=== PATIENT | female | born 1960 | race Caucasian/White ===

== ENCOUNTER → 2017-07-06 15:39 | Outpatient (POV) | payer OTHER, SELFPAY | PROVIDERS: PCP Family Medicine; Visit Provider Nurse Practitioner Acute Care | DX: Z00.00 Encounter for general adult medical examination without abnormal findings (principal) ==

== ENCOUNTER → 2017-07-16 07:02 | Outpatient (CLI) | payer OTHER, SELFPAY ==
--- NOTE | 2017-07-16 07:06 | NM_ITS ---
CARDIOLITE SPECT MYOCARDIAL PERFUSION SCAN, REST AND STRESS: EXERCISE STRESS [facility] REVIEW QGS EF AND WALL MOTION EVALUATION: QPS - PERFUSION EVALUATION HISTORY: Chest pain, Fatigue DOSE: 10.60 mCi technetium 99m mibi intravenously at rest followed by 32.4 mCi technetium 99m mibi following the intravenous ministration of 0.4 mg of Lexiscan. Resting blood pressure is 138/77. Stress blood pressure 128/67. FINDINGS: Ejection fraction is calculated to be 63%. Uniform myocardial activity at both stress and rest gated images calculated ejection fraction of 63% with normal wall motion IMPRESSION: No scintigraphic evidence of Lexiscan-induced myocardial ischemia. Normal ejection fraction normal wall motion
--- NOTE | 2017-07-16 07:48 | CA_ITS ---
PROCEDURE: 2-D M-mode and color Doppler study INDICATIONS FOR THE TEST: Chest pain X COPD Heart Murmur Tobacco Smoking Palpitations Fatigue Syncope Edema Hypertension Diabetes Mellitus Rheumatic Fever SOB HUFFMAN ObesityXHyperlipidemia Family History HD Additional History PATIENT INFORMATION HEIGHT:63 WEIGHT:194 GENDER: Female B/P:138/77 2-D/M-MODE INTERPRETATION: 2-D MEASUREMENTS OBSERVED VALUES IN CMS Right Ventricular Dimension (RVDd) 2.8 Interventricular Septum (Thickness)(IVsd) .9 Left Ventricular Internal Dimensions(LVIDd) 4.1 Left Ventricular Posterior Wall (Thickness)(LVPWd) .9 Aortic Root 2.9 Aortic Cusp Separation 1.6 Left Atrial Dimensions (LAD) 2.9 2D 1. Left atrium is qualitatively mildly enlarged, left ventricle is normal size, there is no concentric left ventricular hypertrophy, visually estimated ejection fraction 55% with no obvious regional wall motion abnormality. 2. The right atrium is normal size, right ventricle is mildly enlarged with normal contractility. 3. The aortic valve is minimally thickened and fibrosed. 4. The mitral and tricuspid valve are structurally normal. 5. The pulmonic valve is poorly visualized 6. No significant pericardial effusion noted. DOPPLER INTERROGATION: Doppler interrogation of the aortic, mitral and tricuspid valvular presence of mild mitral and tricuspid regurgitation, calculated right ventricular systolic pressure is 45 mmHg consistent with moderate pulmonary hypertension, grade 1 diastolic dysfunction seen without tissue Doppler evidence of raised left atrial pressure. CONCLUSION: 1. Mildly enlarged left atrium, normal left ventricular size, visually estimated ejection fraction 55% with no obvious regional wall motion abnormality, grade 1 diastolic dysfunction seen without tissue Doppler evidence of raised left atrial pressure. 2. Mildly enlarged right ventricle with normal contractility. 3. Mild mitral and tricuspid regurgitation 4. No significant pericardial effusion noted.
== END ==
PROVIDERS: PCP Family Medicine; Visit Provider Internal Medicine
DX: R07.89 Other chest pain (principal); Z01.818 Encounter for other preprocedural examination; F17.200 Nicotine dependence, unspecified, uncomplicated; R00.2 Palpitations; K21.9 Gastro-esophageal reflux disease without esophagitis; R07.8 Other chest pain
CPT/HCPCS: 78452; 93017; 93306; A9502; J2785

== ENCOUNTER → 2017-08-04 06:56 | Outpatient (CLI) | payer OTHER, SELFPAY | PROVIDERS: PCP Family Medicine; Visit Provider Physician Assistant | DX: I27.20 Pulmonary hypertension, unspecified (principal); I51.9 Heart disease, unspecified; R60.9 Edema, unspecified ==

== ENCOUNTER → 2017-08-04 07:09 | Outpatient (CLI) | payer OTHER, SELFPAY ==
[2017-08-04 08:29] LABS: Anion Gap 11.1 mEq/L (5-15); Blood Urea Nitrogen 15 mg/dL (7-18); Carbon Dioxide 29 mmol/L (21.0-32.0); Chloride 105 mmol/L (98-107); Creatinine,Serum 0.84 mg/dL (0.55-1.02); Estimated Glomerular Filt Rate 70 ml/min (>60); GFR (African American) 85 ML/MIN (>60); Glucose 104 mg/dL (74-106); Potassium 4.1 mmoL/L (3.5-5.1); Sodium 141 mmol/L (136-145); T4 (Thyroxine) 8.7 ug/dl (4.7-13.3); Thyroid Stimulating Hormone 3.21 uIU/ml (0.358-3.740); Triiodothryronine (T3) Uptake 34 % (31-39)
== END ==
PROVIDERS: PCP Family Medicine; Visit Provider Physician Assistant
DX: I27.20 Pulmonary hypertension, unspecified (principal); I51.9 Heart disease, unspecified; R60.9 Edema, unspecified
CPT/HCPCS: 36415; 80048; 84436; 84443; 84479

== ENCOUNTER → 2017-08-20 15:08 | Outpatient (POV) | payer OTHER, SELFPAY | PROVIDERS: PCP Family Medicine; Visit Provider Dermatology | DX: Z00.00 Encounter for general adult medical examination without abnormal findings (principal) ==

== ENCOUNTER → 2017-09-09 17:12 | Outpatient (CLI) | payer OTHER, SELFPAY ==
--- NOTE | 2017-09-09 17:15 | MM_ITS ---
MM Dig screening mamm BI w/CAD CAD Screening COMPARISON: Digital mammograms 08/07/2016 and 01/23/2016 INDICATION: There is no personal or family history of breast cancer TECHNIQUE: Standard CC and MLO images were obtained. R2 CAD reviewed. FINDINGS: The breasts are closed primarily of fat with minimal scattered fibroglandular densities throughout each breast. There is a benign-appearing calcification in each breast. There is no suspicious lesion and there are no suspicious microcalcifications. IMPRESSION: Fatty type breast parenchyma with no suspicious lesion seen BI-RADS Category: 2 Benign Finding(s) RECOMMENDED FOLLOW-UP: 1YR - 1 YEAR FOLLOW-UP (A letter has been sent to the patient regarding results of the study.)
== END ==
PROVIDERS: PCP Family Medicine; Visit Provider Nurse Practitioner Obstetrics & Gynecology
DX: Z12.31 Encounter for screening mammogram for malignant neoplasm of breast (principal)
CPT/HCPCS: 77067

== ENCOUNTER → 2017-10-26 09:25 | Outpatient (POV) | payer OTHER, SELFPAY | PROVIDERS: Visit Provider Nurse Practitioner Acute Care | DX: Z00.00 Encounter for general adult medical examination without abnormal findings (principal) ==

== ENCOUNTER → 2017-12-25 10:45 | Outpatient (CLI) | payer OTHER, SELFPAY ==
--- NOTE | 2017-12-25 10:56 | XR_ITS ---
XR ankle wt bearing LT min 3V HISTORY: ITS.REASON: pain ORDERING PHYSICIAN: Ursula Cheek DPM PATIENT AGE: 57 years Comparison: 07/26/2015 FINDINGS: Osteoarthritic changes are present at the ankle joint. There is a lucency involving the lateral aspect of the talar dome suspicious for an osteochondral defect measuring approximately 8 mm. Status post prior hindfoot fusion as described in above report. No acute fracture or dislocation. 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
--- NOTE | 2017-12-25 10:56 | XR_ITS ---
XR foot wt bearing LT 3V HISTORY: ITS.REASON: pain ORDERING PHYSICIAN: Ursula Cheek DPM PATIENT AGE: 57 years COMPARISON: 07/26/2015 FINDINGS: There is been prior fusion of the talocalcaneal joint and calcaneocuboid joint as well as the talonavicular joint. Prominent dorsal hypertrophic changes are present at the navicular cuneiform junction. A long screw is present obliquely extending from the posterior calcaneus through the calcaneus into the anterior talus. An oblique screw is also present through the calcaneal cuboid region directed medially. There is moderate to severe pes planus. Osteoarthritic changes are present at the ankle joint. There are osteoarthritic changes at the navicular cuneiforms joint as well. Overall no significant change. IMPRESSION: Overall no change prior hindfoot fusion with osteoarthritic changes and pes planus as described above
--- NOTE | 2017-12-25 10:56 | XR_ITS ---
XR foot wt bearing RT 3V HISTORY: ITS.REASON: pain ORDERING PHYSICIAN: Ursula Cheek DPM PATIENT AGE: 57 years COMPARISON: 09/05/2011 FINDINGS: There is severe pes planus with prior tarsal bone fusion as before with talocalcaneal and talonavicular fusion and calcaneal cuboid fusion. There are mild osteoarthritic changes of the navicular cuneiform and metatarsal tarsal joint. No obvious fracture or dislocation. No significant change from 09/05/2011. IMPRESSION: No change severe pes planus with prior tarsal bone fusion and osteoarthritic change
--- NOTE | 2017-12-25 10:56 | XR_ITS ---
XR ankle wt bearing RT min 3V HISTORY: ITS.REASON: pain ORDERING PHYSICIAN: Ursula Cheek DPM PATIENT AGE: 57 years Comparison: None FINDINGS: There is severe pes planus with osteoarthritic changes at the ankle joint. The talus is tilted being somewhat inverted and there is mild widening of the ankle mortise. No fracture or dislocation. There is mild sclerosis involving the lateral aspect of the talar dome. IMPRESSION: Osteoarthritic change of the talus with talar tilt and mild widening of the ankle mortise
== END ==
PROVIDERS: Visit Provider Podiatrist
DX: M79.671 Pain in right foot (principal); M79.672 Pain in left foot; M25.572 Pain in left ankle and joints of left foot; M25.571 Pain in right ankle and joints of right foot
CPT/HCPCS: 73610; 73630

== ENCOUNTER → 2018-07-29 08:38 | Outpatient (CLI) | payer OTHER, SELFPAY ==
--- NOTE | 2018-07-29 08:48 | XR_ITS ---
XR tibia fibula RT 2V CLINICAL INDICATION: ITS.REASON: follow up right fibula fracture ORDERING PHYSICIAN: Ajit Sewell MD PATIENT AGE: 58 years Comparison: 07/05/2018 FINDINGS: Healing fractures present involving the proximal shaft of the fibula. There is some developing callus formation. There remains good alignment. IMPRESSION: Healing proximal fibular fracture nondisplaced
== END ==
PROVIDERS: PCP Family Medicine; Visit Provider Orthopaedic Surgery
DX: S82.401A Unspecified fracture of shaft of right fibula, initial encounter for closed fracture (principal)
CPT/HCPCS: 73590

== ENCOUNTER → 2018-08-20 09:20 | Outpatient (CLI) | payer OTHER, SELFPAY ==
--- NOTE | 2018-08-20 09:24 | XR_ITS ---
XR tibia fibula RT 2V Ordering Physician: Ajit Sewell MD Patient Age: 58 years: Female HISTORY: ITS.REASON: right fibula fracture Follow-up fracture TECHNIQUE: AP and lateral right leg COMPARISON : 07/29/2018 FINDINGS Healing fracture of the proximal shaft of fibula again evident. Slight progressive healing with additional callus formation about the fracture. Good alignment remains. Stable position overall. Degenerative changes likely developing at the ankle mortise. There is minimal pes planus abnormal foot and ankle been previously imaged. December 2017 IMPRESSION: Healing fracture proximal fibula
== END ==
PROVIDERS: PCP Family Medicine; Visit Provider Orthopaedic Surgery
DX: S82.401A Unspecified fracture of shaft of right fibula, initial encounter for closed fracture (principal)
CPT/HCPCS: 73590

== ENCOUNTER → 2019-03-10 13:17 | Outpatient (CLI) | payer OTHER, SELFPAY ==
--- NOTE | 2019-03-10 13:18 | CA_ITS ---
[facility] RADIOLOGICAL CONSULTATION Patient Name : Rema Valladares X-RAY # : [id number] Physician: LUISA CHAMPION AGE: 58Y : 1960 00:00:00 ( F ) Exam : CA ECHO DOPPLER COMPLETE ACC # : [id number] Study Date : 03/10/2019 13:19:33 Patient Class : O FINAL REPORT CLINICAL DATA: FINDINGS: TRANSCRIBED REPORT EXAM: Comprehensive 2D, Doppler, and color-flow Echocardiogram Network Support Technician: Shagufta Muro RVT Ht: 5 ft 3 in Wt: 193lbs BSA: 1.90 BP: 119/71 mmHg Indications: Shortness of Breath, Palpitations, Hyperlipidemia, Hypertension,Pul. HTN, Edema 2D Dimensions LVOT 1.64 cm (M/F) 1.5-2.5 M-Mode Dimensions RVDd 1.90 cm (0.9-2.6) LVDd 4.27 cm (3.5-5.7) LVDs 2.65 cm (3.5-5.7) IVSd 0.90 cm (0.6-1.1) PWd 1.29 cm (0.6-1.1) EF (Teich) 68.40% FS 37.90% EDV (Teich) 81.70 mL ESV (Teich) 25.80 mL LV Diastology E/A Ratio 1.20 Mitral Valve MV A Velocity 49.00 (40-130 cm/s) Electronically signed by : IMPRESSION: Dictated by at Transcribed by at
== END ==
PROVIDERS: PCP Family Medicine; Visit Provider Nurse Practitioner Family
DX: I27.20 Pulmonary hypertension, unspecified (principal); R60.0 Localized edema; I10 Essential (primary) hypertension
CPT/HCPCS: 93306

== ENCOUNTER → 2020-04-04 16:25 | Outpatient (CLI) | payer OTHER, SELFPAY ==
--- NOTE | 2020-04-04 16:30 | XR_ITS ---
PROCEDURE: XR ANKLE WT BEARING RT MIN 3V CLINICAL INDICATION: pain COMPARISON: CR ANKL3 ANKLE-LT-3 VIEWS from 07/26/2015 CR [id number] XR ankle wt bearing LT min 3V from 12/25/2017 CR [id number] XR ankle wt bearing RT min 3V from 12/25/2017 CR XR FOOT WT BEARING RT 3V from 04/04/2020 FINDINGS: There is severe pes planus. There are osteoarthritic changes of the 1st metatarsal tarsal joint. There has appears to have been fusion the subtalar joint/talocalcaneal joint, talonavicular joint, and calcaneocuboid joint. There are osteoarthritic changes dorsally at the metatarsal tarsal junction. There is mild lateral angulation of the foot On the weight-bearing views there is eversion of the ankle with osteosclerosis of the lateral aspect of the talus and tibial plafond and. The osteosclerosis is somewhat worse than when compared to the previous exam. IMPRESSION: Prior hindfoot and midfoot fusion as described above with osteoarthritis of the ankle and lateral talar tilt. Severe pes planus unchanged. Osteoarthritis of the tarsometatarsal junction with mild lateral angulation of the foot Dictated by: Thai Meléndez MD 04/04/2020 18:54 Thai Meléndez MD in [place] 04/04/2020 18:54
--- NOTE | 2020-04-04 16:30 | XR_ITS ---
PROCEDURE: XR ANKLE WT BEARING LT MIN 3V CLINICAL INDICATION: pain COMPARISON: CR ANKL3 ANKLE-LT-3 VIEWS from 07/26/2015 CR [id number] XR foot wt bearing LT 3V from 12/25/2017 CR ANKWBL3 XR ankle wt bearing LT min 3V from 12/25/2017 CR ANKWBR3 XR ankle wt bearing RT min 3V from 12/25/2017 CR XR FOOT WT BEARING LT 3V from 04/04/2020 FINDINGS: Weightbearing views of the ankle show osteoarthritic changes at the ankle joint with mild eversion of the ankle. Bony hypertrophic changes are present at the tibiofibular syndesmosis. There has been prior hindfoot and midfoot fusion with a screw from the calcaneus to the talus and from the calcaneus into the cuboid. There has been prior talonavicular fusion. Osteoarthritic changes are present with prominent bony hypertrophy at the navicular cuneiform joint. There is moderate pes planus. Osteoarthritic changes are present at the ankle and the metatarsal tarsal joint. Overall no significant change from 12/25/2017 IMPRESSION: Postsurgical changes with hind and midfoot fusion with pes planus and osteoarthritis as described above. Dictated by: Thai Meléndez MD 04/04/2020 18:57 Thai Meléndez MD in [place] 04/04/2020 18:57
== END ==
PROVIDERS: PCP Family Medicine; Visit Provider Podiatrist
DX: M19.90 Unspecified osteoarthritis, unspecified site (principal); M21.40 Flat foot [pes planus] (acquired), unspecified foot; M25.572 Pain in left ankle and joints of left foot; M25.571 Pain in right ankle and joints of right foot
CPT/HCPCS: 73610; 73630

== ENCOUNTER → 2020-04-24 08:24 | Outpatient (CLI) | payer OTHER, SELFPAY ==
--- NOTE | 2020-04-24 08:29 | MM_ITS ---
PROCEDURE: MM DIG SCREENING MAMM BI W/CAD Referring Doctor: Drew Cam Patient Age:59Y CLINICAL INDICATION: screening xmg 59-year-old no hormones no new complaints noncontributory family history COMPARISON: MG DMSB DIG MAMM-SCREEN CATHERINE from 09/28/2013 MG DMSB DIG MAMM-SCREEN CATHERINE from 11/07/2014 MG DMSB DIG MAMM-SCREEN CATHERINE from 01/23/2016 MG DMDBAV DIG MAMM-DX CATHERINE W/AVWS W/CAD from 08/07/2016 MG SCBI MM Dig screening mamm BI w/CAD from 09/09/2017 TECHNIQUE: Standard CC and MLO images were obtained. R2 CAD reviewed. Bilateral digital breast tomosynthesis included. FINDINGS: Low-density breast.. Minimal scattered residual fibroglandular elements with no dominant nor suspicious mass. No suspicious calcifications. No malignancy evident radiographically. CAD computer review highlights no areas of concern Right breast-no significant new areas of concern . Areas of minimal density appear stable for example minimal tiny nodular density inferior breast appear been seen multiple previous MLO studies Left breast no significant new areas of concern... Stable subtle linear area of density on MLO view unchanged since to previous studies. As are other small asymmetric densities IMPRESSION: Stable bilateral mammogram. Bilateral follow-up 1 year recommended BI-RAD Category: 2 Benign Finding(s) FOLLOW-UP: 1YR 1 Year Follow-up (A letter has been sent to the patient regarding results of the study.) Dictated by: Shaun Velásquez MD 04/26/2020 11:52 Shaun Velásquez MD in [place] 04/26/2020 11:52
--- NOTE | 2020-04-24 14:33 | CA_ITS ---
APPROVED REPORT EXAM: Comprehensive 2D, Doppler, and color-flow Echocardiogram Merchandise Manager: Yadi Garcia CRT Ht: 5 ft 3 in Wt: 200lbs BSA: 1.93 BP: 153/71 mmHg Indications: Chest Pain, Pre-Op Clearance, Pulmonary Hypertension, Obesity, Fatigue, Hyperlipidemia, Hypertension/HDD 2D Dimensions LVOT 1.81 cm (M/F) 1.5-2.5 M-Mode Dimensions RVDd 1.83 cm (0.9-2.6) LA Diam 2.82 cm (1.9-4.0) LVDd 4.80 cm (3.5-5.7) Ao Diam 3.48 cm (2.0-3.7) LVDs 2.94 cm (3.5-5.7) IVSd 1.21 cm (0.6-1.1) PWd 0.69 cm (0.6-1.1) EF (Teich) 69.00% FS 38.80% EDV (Teich) 107.50 mL ESV (Teich) 33.30 mL LV Diastology E Decel Time 237.00 (160-240 msec) E/A Ratio 0.86 MED E' 9.20 (< 7 cm/sec) E'/MED E' Ratio 7.39 (>14) LAT E' 11.80 (<10 cm/sec) E/LAT E' Ratio 5.76 (>14) Aortic Valve AO Peak GR. 8.60 mmHg Mitral Valve MV A Velocity 79.00 (40-130 cm/s) E/A Ratio 0.86 MV Decel. Time 237.00 (160-240 ms) Pulmonary Valve PV Peak Velocity 88.00 (50-150 cm/s) Tricuspid Valve TR P. Velocity 260.00 cm/s RAP Estimate 10.00 mmHg RVSP 37.00 mmHg Left Ventricle Left atrium is mildly enlarged, left ventricle is normal size, mild concentric left ventricular hypertrophy, visually estimated ejection fraction 55% with no regional wall motion abnormality, grade 1 diastolic dysfunction seen without tissue Doppler evidence of raise left atrial pressure. Right Ventricle Right atrium and right ventricular normal size and contractility. Aortic Valve Aortic valve is grossly normal, there is no aortic stenosis or aortic insufficiency. Mitral Valve Mitral valve is grossly normal, there is mild mitral regurgitation. Tricuspid Valve Tricuspid valve is grossly normal, there is mild tricuspid regurgitation, calculated right ventricular systolic pressure 33 mmHg. Pulmonic Valve Pulmonic valve is poorly visualized. Great Vessels Aortic root is normal size. Pericardium No significant pericardial effusion noted. Conclusion 1. Mildly enlarged left atrium, normal left ventricular size, mild concentric left ventricular hypertrophy, visually estimated ejection fraction 55% with no regional wall motion abnormality, grade 1 diastolic dysfunction seen without tissue Doppler evidence of raise left atrial pressure. 2. Mild mitral and tricuspid regurgitation, calculated right ventricular systolic pressure 33 mmHg. 3. No significant pericardial effusion noted. Electronically signed by : Davide Ocampo, 04/25/2020 05:46:57
[2020-04-25 10:11] LABS: Microscopic, Urine URINE MICROSCOPIC (MICROSCOPIC)
[2020-04-25 10:53] LABS: Appearance,Urine CLEAR (Clear); Bilirubin,Urine Negative (Negative); Blood, Urine Negative (Negative); Color,Urine YELLOW (Yellow); Glucose,Urine (UA) Negative (Negative); Ketones,Urine Negative (Negative); Leukocyte Esterase,Urine 1+ (Negative); Nitrate,Urine Negative (Negative); Protein,Urine Negative (Negative); Urobilinogen,Urine 0.2 EU/dl (0.2)
[2020-04-25 11:24] LABS: Bacteria,Urine 1+ /lpf
== END ==
PROVIDERS: PCP Family Medicine; Visit Provider Nurse Practitioner Obstetrics & Gynecology
DX: Z12.31 Encounter for screening mammogram for malignant neoplasm of breast (principal); Z01.810 Encounter for preprocedural cardiovascular examination; Z01.419 Encounter for gynecological examination (general) (routine) without abnormal findings; I27.20 Pulmonary hypertension, unspecified; I51.89 Other ill-defined heart diseases; E78.5 Hyperlipidemia, unspecified; I10 Essential (primary) hypertension; R60.0 Localized edema
CPT/HCPCS: 77063; 77067; 81001; 87086; 93306

== ENCOUNTER → 2020-04-30 14:24 | Outpatient (CLI) | payer OTHER, SELFPAY ==
--- NOTE | 2020-04-30 14:27 | CT_ITS ---
PROCEDURE: CT ANKLE RT WO CON CLINICAL HISTORY: ankle pain right foot pain prior surgery 40+ years ago surgical planning, possible TAR COMPARISON: CR XR ANKLE WT BEARING RT MIN 3V from 04/04/2020 CR XR FOOT WT BEARING RT 3V from 04/04/[address] FOOT RT WO CON from 04/30/2020 TECHNIQUE: Axial images obtained with sagittal and coronal reformats. All CT scans at the facility use one or more dose reduction, viz: automated exposure control, ma/kV adjustment per patient size (including targeted exams where dose is matched to indication, i.e. head), or iterative reconstruction technique. FINDINGS: Images are performed from the distal thigh including the knee ankle and foot. These are performed for surgical planning. There are mild osteoarthritic changes of the knee greater at the medial compartment. There is mild patella [place]. There is an old fracture involving the proximal shaft of the fibula. At the ankle there are mild osteoarthritic changes with mild lateral tilt of the talus. Osteosclerosis is greater along the talar dome medially. There are tiny subchondral cyst at the distal tibia and at the fibula with mild osteoarthritic change of the talofibular joint. There is a small amount of subcutaneous edema at the distal leg. CT foot: There is pes planus. There is talocalcaneal fusion and talonavicular fusion and calcaneocuboid fusion. Osteoarthritic changes are present at the navicular cuneiform joint and at the cuneiform metatarsal joint. Osteoarthritis also noted at the cuboid metatarsal junction. There are scattered lucent regions within the tarsal bones consistent with subchondral cystic areas. No acute fracture or dislocation is evident. The Achilles tendon appears intact. Other tendons and ligaments are not well delineated by CT technique. There is metatarsus varus. IMPRESSION: Osteoarthritic changes of the foot and ankle as described above. Prior talocalcaneal navicular and cuboid fusion. Please see above for detailed description. Osteoarthritis of the knee. Pes planus Osteosclerosis of the medial aspect of the talar dome with a subchondral cyst at this area Dictated by: Thai Meléndez MD 05/01/2020 09:46 Thai Meléndez MD in [place] 05/01/2020 09:46
--- NOTE | 2020-04-30 14:27 | XR_ITS ---
PROCEDURE: XR DEXA AXIAL SKELETON CLINICAL HISTORY: surgical planning Postmenopausal COMPARISON: No exams were available for comparison FINDINGS: The right hip BMD is 0.783 with a T-score of -1.3. The left hip BMD is 0.779 with a T-score of -1.3. The lumbar spine BMD is 0.831 with a T-score of -2.0. IMPRESSION: This patient is considered osteopenic according to the World Health Organization criteria. Bone density is between 10 and 25 percent below young normal. Fracture risk is moderate. Treatment is advised. Based on these results a follow-up exam is recommended in 2 year. Dictated by: Thai Meléndez MD 05/02/2020 08:54 Thai Meléndez MD in [place] 05/02/2020 08:54
== END ==
PROVIDERS: PCP Family Medicine; Visit Provider Podiatrist
DX: M25.371 Other instability, right ankle (principal); M85.89 Other specified disorders of bone density and structure, multiple sites; M21.41 Flat foot [pes planus] (acquired), right foot; M85.80 Other specified disorders of bone density and structure, unspecified site
CPT/HCPCS: 73700; 77080

== ENCOUNTER → 2020-05-10 06:21 | Outpatient (CLI) | payer OTHER, SELFPAY ==
--- NOTE | 2020-05-10 06:21 | CA_ITS ---
APPROVED REPORT Exam: Pharmacologic Technologist: Carmina Haywood, Ht: 5 ft 3 in Wt: 200 lbs BSA: 1.93 m2 HR: 71 bpm BP: 135/77 mmHg Rhythm: NSR,LOW VOLTAGE QRS Medical History Medical History: HTN Medications: Losartan,,,,, HCTZ,,,,, Calcium,,,,, MoTRIN,,,,, Vit D3,,,,, AscorbATE,,,,, Allergies: AVOCADO Cardiac Risk Factors: HTN, FHX of CAD Stress Test Details Test: LEXISCAN HR Resting HR: 72 bpm Max Heart Rate (APMHR): 160 bpm Max HR Achieved: 96 bpm Target HR (85% APMHR): 136 bpm % of APMHR: 60 Recovery HR: 84 bpm BP Resting BP: 135.0/77.0 mmHg Max BP: 142.0/77.0 mmHg Recovery BP: 135.0/82.0 mmHg ECG Resting ECG: NSR,LOW VOLTAGE QRS Clinical Exercise duration: 04:07 min Highest Stage Achieved: Exercise capacity: 1.0 METs Stress ECG Conclusion DURING INFUSION PATIENT HAD SOA,BRIEF CHEST TIGHTNESS AND MILD BRIEF STOMACH DISCOMFORT WITH MALAISE. NO ARRHYTHMIA. NS T WAVE CHANGES. UNREMARKABLE LEXISCAN STRESS. MYOVIEW IMAGES REPORTED SEPARATELY Electronically signed by : Davide Ocampo, 05/10/2020 13:08:09
--- NOTE | 2020-05-10 06:45 | NM_ITS ---
APPROVED REPORT Exam: Nuclear Stress Test Indication: chest pain..fatigue..short of breath Patient Location: Outpatient Stress Tech: Daylin Chastity [facility] Tech:KELLI Soriano RT(R)(N) Ht: 5 ft 3 in Wt: 195 lbs Bra Size: 38 c HR: 71 bpm BP: 135/77 mmHg BSA: 1.91 m2 BMI: 34.5 History: chest pain..fatigue..short of breath Procedure: Patient received a 0.4 mg of intravenous Lexiscan, resting heart rate 71 bpm, resting blood pressure 135/77 mmHg, with Lexiscan maximum heart rate achived was 93 bpm which is Less than 85 % of the maximum predicted heart rate and blood pressure was 125/71 mmHg. Electrocardiogram Resting electrocardiogram showed sinus rhythm, with Lexiscan there is less than 1.[address] segment depression noted from the baseline EKG. The EKG portion of the Lexiscan is nondiagnostic. Cardiac Stress and Resting SPECT Images: Cardiac Stress and Resting SPECT images were obtained using technetium 99m Myoview 33.0 mCi stress and 10.15 mCi at rest. Gated SPECT for analysis of segmental wall motion and calculation of the ejection fraction also done. Prone images were also obtained. Cardiac stress and resting SPECT images show uniform myocardial activity without segmental perfusion abnormality, computer derived ejection fraction is over 65% with no regional wall motion abnormality, right ventricle is mildly enlarged with normal contractility. Conclusion: 1. The EKG portion of the Lexiscan is nondiagnostic. 2. No scintigraphic evidence of reversible ischemia seen, computer derived ejection fraction is over 65% with no regional wall motion abnormality, right ventricle is mildly enlarged with normal contractility. Electronically signed by : Davide Ocampo, 05/10/2020 13:11:11
--- NOTE | 2020-05-10 06:45 | XR_ITS ---
PROCEDURE: XR CHEST 2V CLINICAL HISTORY: pre-op Hypertension COMPARISON: No exams were available for comparison FINDINGS: The cardiomediastinal silhouette and pulmonary vascularity are within normal limits. The lungs are clear without infiltrates, suspicious nodules, or pleural effusions. No acute bony abnormalities. IMPRESSION: No acute findings. Dictated by: Thai Meléndez MD 05/10/2020 14:36 Thai Meléndez MD in [place] 05/10/2020 14:36
--- NOTE | 2020-05-10 09:00 | HMH.ITSHM ---
Current Home Medications as stated by this patient Rema Valladares or medical billing representative. [] losartan hctz vit d effexor
== END ==
PROVIDERS: PCP Family Medicine; Visit Provider Physician Assistant
DX: Z01.818 Encounter for other preprocedural examination (principal); M79.671 Pain in right foot; I27.20 Pulmonary hypertension, unspecified; R60.0 Localized edema; I10 Essential (primary) hypertension; E78.5 Hyperlipidemia, unspecified
CPT/HCPCS: 71046; 78452; 93017; A9502; J2785

== ENCOUNTER → 2020-05-24 13:47 | Outpatient (CLI) | payer OTHER, SELFPAY ==
--- NOTE | 2020-05-24 13:48 | US_ITS ---
APPROVED REPORT Exam Type: Ankle to Brachial Index Doctor Naturopathic: Eri Vitale RT(R) Indications bilateral circulation presurgery rt ankle and left ankle Pressures/Indices Right Indices Left Indices Brachial 137.00 mmHg Brachial 139.00 mmHg Low Thigh 136.00 mmHg 0.98 Low Thigh 133.00 mmHg 0.96 Calf 139.00 mmHg 1.00 Calf 121.00 mmHg 0.87 Ankle(PT) 143.00 mmHg 1.03 Ankle(PT) 122.00 mmHg 0.88 Ankle(DP) 138.00 mmHg 0.99 Ankle(DP) 133.00 mmHg 0.96 Digit 100.00 mmHg 0.72 Digit 107.00 mmHg 0.77 Findings RT ANA=1.0 LT ANA=1.0 RT TBI=0.7 LT TBI=0.8 Normal pulses Normal wavefroms Conclusion RT ANA=1.0 LT ANA=1.0 RT TBI=0.7 LT TBI=0.8 Normal pulses Normal wavefroms Normal appearing resting noninvasive lower extremity arterial study. Electronically signed by : Thai Meléndez MD 05/24/2020 17:58:29
--- NOTE | 2020-05-24 14:57 | MR_ITS ---
PROCEDURE: MR ANKLE RT WO/W CON CLINICAL INDICATION: ankle pain, surgical planning RT ANKLE PAIN AND SWELLING FOR YEARS, SURGICAL PLANNING, PRIOR ARTHRODESIS. 18ML ROSS LOT:[id number] EXP:[id number] 2022 COMPARISON: CR XR FOOT WT BEARING RT 3V from 04/04/[address] ANKLE RT WO CON from 04/30/2020 TECHNIQUE: Routine multiplanar multi echo sequences are performed without and with gadolinium enhancement. FINDINGS: There has been extensive foot and ankle surgery with fusion the talonavicular and talocalcaneal joint as well as the calcaneocuboid joint. There are hypertrophic changes at the talofibular joint. A normal ATFL is not identified. Suspect chronic tear of the ATFL. Inferior to the region of the ATFL isointense signal intensity noted at the talofibular region and may be due to chronic scarring. Hypertrophic changes also noted at this area. The PT FL does appear to be intact. The deltoid ligament fibers are somewhat sparse and may be due to partial tear. The posterior tibialis, flexor hallucis longus, flexor digitorum longus, and peroneal tendons appear intact. The Achilles tendon appears intact. Osteoarthritic changes are present at the ankle joint with subchondral cystic changes and sclerosis of the talar dome. There is mild eversion of the talus. There is thinning of the cartilage is specially along the lateral aspect of the talus and tibia at the ankle joint. There is a small ankle joint effusion. Small locules of fluid are noted posterior to the distal tibia. Osteoarthritic changes are present at the tarsal metatarsal junction. IMPRESSION: 1. Chronic tear of the ATFL. Scarring noted at the region of the ATFL. 2. PT FL appears intact. 3. Sparse fibers of the deltoid ligament consistent with partial tear. 4. Prior fusion of the talocalcaneal calcaneocuboid and talonavicular joint. 5. Osteoarthritic changes of the ankle with severe thinning of the cartilage at the ankle joint laterally. Mild eversion of the talus noted. Dictated by: Thai Meléndez MD 05/29/2020 10:10 Thai Meléndez MD in [place] 05/29/2020 10:10
== END ==
PROVIDERS: PCP Family Medicine; Visit Provider Podiatrist
DX: R09.89 Other specified symptoms and signs involving the circulatory and respiratory systems (principal); M25.371 Other instability, right ankle; M25.871 Other specified joint disorders, right ankle and foot
CPT/HCPCS: 73723; 93923; A9576

== ENCOUNTER → 2020-05-24 14:38 | Outpatient (CLI) | payer OTHER, SELFPAY ==
[2020-05-24 15:09] LABS: Basophils % 0.1 % (0.1-2.0); Eosinophils # 0.1 K/mm3 (0.0-0.4); Eosinophils % 1.3 % (0.1-12.0); Hemoglobin 14.3 g/dL (12.2-16.2); Lymphocytes # 1.8 K/mm3 (0.7-4.5); Lymphocytes % 31.5 % (10-50); Mean Corpuscular HGB Conc 33.3 g/dL (31.8-35.4); Mean Corpuscular Hemoglobin 31.3 pg (27.0-31.2); Monocytes # 0.3 K/mm3 (0.1-1.0); Neutrophils # 3.6 K/mm3 (1.8-7.8); Platelet Count 258 K/mm3 (142-424); Red Blood Count 4.58 M/mm3 (4.20-5.40); Red Cell Distribution Width 13.9 % (11.5-17.5); White Blood Count 5.8 K/mm3 (4.8-10.8)
[2020-05-24 15:28] LABS: Alanine Aminotransferase 18 U/L (12-78); Albumin Level 4.4 g/dl (3.5-5.0); Albumin/Globulin Ratio 1.6 (1.1-1.8); Alkaline Phosphatase 80 U/L (38-126); Anion Gap 10.6 mEq/L (5-15); Aspartate Amino Transferase 22 U/L (14-36); Bilirubin,Total 0.5 mg/dl (0.2-1.3); Blood Urea Nitrogen 23 mg/dl (7-17); Calcium 9.4 mg/dl (8.4-10.2); Carbon Dioxide 32 mmol/L (22.0-30.0); Chloride 101 mmol/L (98-107); Estimated Glomerular Filt Rate 57 ml/min (>60); GFR (African American) 68 ML/MIN (>60); Globulin 2.8 g/dL (1.3-3.2); Glucose 126 mg/dl (74-100); Potassium 3.6 mmoL/L (3.5-5.1); Sodium 140 mmol/L (136-145); Total Protein,Serum 7.2 g/dl (6.3-8.2)
[2020-05-24 15:37] LABS: C-Reactive Protein 4.7 mg/L (0-4)
[2020-05-24 16:13] LABS: Chloride 101 mmol/L (98-107)
[2020-05-24 16:14] LABS: Potassium 3.6 mmoL/L (3.5-5.1); Sodium 142 mmol/L (136-145)
[2020-05-24 16:17] LABS: Anion Gap 12.6 mEq/L (5-15); Blood Urea Nitrogen 23 mg/dl (7-17); Calcium 9.4 mg/dl (8.4-10.2); Carbon Dioxide 32 mmol/L (22.0-30.0); Estimated Glomerular Filt Rate 57 ml/min (>60); GFR (African American) 68 ML/MIN (>60); Glucose 124 mg/dl (74-100)
[2020-05-24 16:56] LABS: Erythrocyte Sedimentation Rate 21 mm/hr (0-30)
[2020-06-03 18:12] LABS: 1,25 Dihydroxy Vitamin D 32 pg/mL (.); 1,25-Dihydroxy, Vitamin D-2 <10 pg/mL (.); 1,25-Dihydroxy, Vitamin D-3 32 pg/mL (.)
== END ==
PROVIDERS: Podiatrist; Visit Provider Urology
DX: R06.00 Dyspnea, unspecified (principal); I27.20 Pulmonary hypertension, unspecified; I50.32 Chronic diastolic (congestive) heart failure; M79.672 Pain in left foot; M79.671 Pain in right foot; F17.200 Nicotine dependence, unspecified, uncomplicated
CPT/HCPCS: 36415; 80048; 80053; 82652; 85025; 85651; 86140

== ENCOUNTER → 2020-06-12 16:14 | Outpatient (CLI) | payer OTHER, SELFPAY ==
[2020-06-12 17:02] LABS: Basophils % 0.2 % (0.1-2.0); Eosinophils # 0.1 K/mm3 (0.0-0.4); Hematocrit 44.4 % (37.0-47.0); Hemoglobin 14.6 g/dL (12.2-16.2); Lymphocytes % 29.1 % (10-50); Mean Corpuscular HGB Conc 32.8 g/dL (31.8-35.4); Mean Corpuscular Hemoglobin 31.3 pg (27.0-31.2); Mean Corpuscular Volume 95.4 fl (81-99); Mean Platelet Volume 7.5 fl (7.4-10.4); Monocytes # 0.4 K/mm3 (0.1-1.0); Monocytes % 5.7 % (1.7-9.3); Neutrophils # 4.5 K/mm3 (1.8-7.8); Neutrophils % 64.1 % (37.0-80.0); Platelet Count 253 K/mm3 (142-424); Red Blood Count 4.66 M/mm3 (4.20-5.40); Red Cell Distribution Width 14.2 % (11.5-17.5); White Blood Count 6.9 K/mm3 (4.8-10.8)
[2020-06-12 17:24] LABS: Alanine Aminotransferase 16 U/L (12-78); Albumin Level 4.4 g/dl (3.5-5.0); Albumin/Globulin Ratio 1.5 (1.1-1.8); Alkaline Phosphatase 85 U/L (38-126); Anion Gap 14.3 mEq/L (5-15); Aspartate Amino Transferase 22 U/L (14-36); Bilirubin,Total 0.3 mg/dl (0.2-1.3); Blood Urea Nitrogen 22 mg/dl (7-17); Calcium 9.4 mg/dl (8.4-10.2); Carbon Dioxide 28 mmol/L (22.0-30.0); Chloride 102 mmol/L (98-107); Estimated Glomerular Filt Rate 38 ml/min (>60); GFR (African American) 46 ML/MIN (>60); Glucose 96 mg/dl (74-100); Potassium 4.3 mmoL/L (3.5-5.1); Sodium 140 mmol/L (136-145); Total Protein,Serum 7.4 g/dl (6.3-8.2)
[2020-06-12 17:32] LABS: Coronavirus 19 IgG Antibody Negative (Negative); Coronavirus 19 IgM Antibody Negative (Negative)
[2020-06-12 17:42] LABS: 25-OH Vitamin D, Total 49.9 ng/mL (30-100)
== END ==
PROVIDERS: Visit Provider Podiatrist
DX: Z01.812 Encounter for preprocedural laboratory examination (principal); Z20.822 Contact with and (suspected) exposure to COVID-19; M19.071 Primary osteoarthritis, right ankle and foot; M25.371 Other instability, right ankle; M21.41 Flat foot [pes planus] (acquired), right foot
CPT/HCPCS: 36415; 80053; 82306; 85025; 86328

== ENCOUNTER 2020-06-13 06:06 | Day surgery (SDC) | payer OTHER, SELFPAY ==
[2020-06-07 11:26] VITALS: BMI 34.3
[2020-06-13] VITALS (15 sets, daily range): BP systolic 112–154; BP diastolic 68–92; PULSE 72–104; RESP 16–20; TEMP 36–43; O2SAT 90–97
--- NOTE | 2020-06-13 | XR_ITS ---
PROCEDURE: XR FOOT RT MIN 3V CLINICAL INDICATION: post op follow-up surgery COMPARISON: CR [id number] XR foot wt bearing LT 3V from 12/25/2017 CR XR FOOT WT BEARING LT 3V from 04/04/2020 CR XR FOOT WT BEARING RT 3V from 04/04/[address] FOOT RT WO CON from 04/30/2020 CR XR CALCANEUS RT MIN 2V from 06/13/2020 CR XR FOOT RT 2V from 06/13/2020 CR XR ANKLE RT 2V from 06/13/2020 FINDINGS: There is an overlying cast present which does obscure bony detail. Two screws are placed from the posterior aspect of the calcaneus 1 which goes from the calcaneus into the talus and the other along the posterior aspect of the calcaneus. S/p calcaneocuboid arthrodesis with lateral bone plate.. Status post talonavicular arthrodesis with medial bone plate and a large staple. There are screws from the medial cuneiform into the navicular and talus. There does appear to be good alignment. Osteoarthritic changes are present at the midfoot and at the metatarsal tarsal junction. [place] screw is present at the distal fibula. IMPRESSION: Postsurgical changes present with good alignment as described above. Dictated by: Thai Meléndez MD 06/13/2020 16:25 Thai Meléndez MD in [place] 06/13/2020 16:25
--- NOTE | 2020-06-13 15:34 | HMH.ANESCL ---
[facility] Anesthesia Checklist - Patient Identification Patient Identification: Arm Band, Verbal (Name & ) - Structural Data Admitted From: Home Planned Operative Procedure/s: ankle Consent for Planned Operative Procedure(s) Verified: Yes Verified Documents: History and Physical - NPO Status Verified Time NPO: 00:00 - Chart Verification Results Verified: CBC, BMP - Additional verifications Patient : No Anesthesia Reactions: No Hx Blood Transfusions: No Blood Transfusion Reaction: No Cephalosporin Allergy: No Previous Colonoscopy: Yes - Cardiovascular Assessment Heart Sounds: S1 & S2 Pulse Strength: Baseline Pulse Rhythm: Regular Peripheral Edema: No - Airway Assessment C-Spine Mobility Assessed: Yes TMJ Mobility Assessed: Yes Dentition: Good Dentition - Neurological Assessment Level of Consciousness: Awake, Alert, Appropriate Hx Seizures: No Numbness or tingling in extremities: No - Anesthesia Plan Anesthesia Risk discussed: Yes Anesthesia Plan: Verified ASA Class: III Anesthesia Type: General [facility] History I have reviewed the patient's past medical history: Yes Medical History: Reports:: Depression, Hypertension Denies:: Cancer, Diabetes Mellitus Type 1, Diabetes Mellitus Type 2, Internal Pacemaker, Lung Disease, MRSA, Seizures *Have you ever received a pneumonia vaccine?: Yes *Have you received a flu vaccine this season?: Yes Other Medical History: Reports: Arthritis. Denies: Blood Transfusion Reaction Anesthesia experience/problems:: none Laterality Cases: Bilateral: Other Other Surgeries: Yes: Hernia Repair. No: Pacemaker Amputation: No Fractures: No - *Social History Last grade of school completed: Advanced degree Smoking Status: Never smoker Alcohol Intake: current Alcohol Intake Frequency:: holidays/special occasions only Substance Use Type: denies use *Occupational Status:: employed Housing: house Household Members: spouse, family *Travel in the last 8 weeks: Inside the [facility] - Psychiatric History Pschychiatric History:: Reports:: Depression Family Hx:: Cancer, Diabetes, Heart Attack, Hyperlipidemia, Hypertension
--- NOTE | 2020-06-13 15:37 | P.PN_ITS ---
[facility] Anesthesia Record Part I Intake, IV Amount: 2,700 Estimated blood loss (mL): 50 Urine output (mL): 300 Blood Products used (#): none Blood Pressure: 136/81 SaO2: 92 Pulse Rate: 102 Respiratory Rate: 20 Temperature: 96.8 F Patient is:: Drowsy, Stable Stable to PACU at:: 15:18
--- NOTE | 2020-06-13 15:40 | HMH.OPNOTE ---
Date of procedure: 06/14/20 Pre-op Diagnosis:: 1. Right ankle instability 2. Right triple arthrodesis malunion 3. Right pes planus 4. Right foot, ankle osteoarthritis 5. Right heel valgus 6. Right foot synovitis 7. Right peroneal tendon tear (rupture of brevis, longitudinal longus tear) 8. Right posterior tibial tendon tear 9. Right foot equinus 10. Right foot scar Post-op Diagnosis:: Same + right EHL tendon contracture Procedure performed:: 1. Right medial calcaneal displacement osteotomy (MCDO) 2. Right flatfoot reconstruction: navicular cuneiform arthrodesis 3. Right calcaneal osteotomy (lateral column lengthening) 4. Right midfoot osteotomy with cuboid wedge 5. Right ankle ligament stabilization: Modified Brostr?m 6. Right tendo Achilles lengthening 7. Right posterior tibial tendon debridement and repair 8. Right peroneal tendon repair, transfer (brevis to longus anastomosis) 9. Right foot synovectomy 10. Right extensor hallucis longus lengthening 11. Application of bone graft, tissue graft 12. Application of posterior splint 13. Application of Prevana incisional wound vac Surgeon:: Ursula Cheek DPM Plant Anatomy Teacher(s):: Dr. Adrienne Hager TAILER OUT:: Rich Son Anesthesia: GETA, regional (Right popliteal block) Estimated blood loss (mL): 50 Clinical Note:: Patient is a 60-year-old female who presents with worsening bilateral foot pain and arch collapsing. Patient had bilateral triple arthrodesis at age 17 and 20. Patient unsure if she had a malunion or if deformity has just progressively gotten worse. Patient has had recent x-rays, MRI and CT scan to the right lower extremity. Conservative treatment discussed but not recommended at this point. She has failed conservative care including: Modification of shoe gear, modification of activity, icing, elevation, NSAIDs, injections, stretching, formal physical therapy, custom ankle-foot orthoses/AFO, bilateral foot surgery and continues to have progressively worsening pain and instability. The surgical work-up has included vascular studies which are normal, DEXA scan which indicates osteopenia and borderline low vit D, CBC, CMP, EKG, CXR. All risks and benefits were discussed including but not limited to: damage to blood vessels and nerves, bleeding, infection, wound complications, delayed, mal or non-union of bone, post-traumatic arthritis, need for further surgery, need for removal of implant, prolonged or residual swelling of the extremity, prolonged pain, recurrence or permanent deformity, loss of limb, CRPS/RSD, DVT, and anesthetic complications including regional nerve block complications or even . No guarantees were given. All questions fully answered. The patient verbalized understanding and agreed to proceed with surgery. Patient does not smoke and denies history of diabetes. We discussed complications with revisional surgery including wound healing complications, increased risk of infection, increased risk of delayed or nonunion, prolonged immobilization-use of DVT prophylaxis. We discussed the right flat foot surgery first, and discussed procedures to include but not limited to: Right revisional triple arthrodesis, ankle arthrodesis versus total ankle replacement, tendo Achilles lengthening, midfoot stabilization, calcaneal osteotomy, bone allograft, ankle ligament stabilization, possible repair of peroneal and posterior tibial tendons, possible tendon transfers, synovectomy, amniotic tissue graft application. I explained due to the amount of work that would need to be done and the amount of anesthesia, the surgery will have to be staged. Stage 1: right foot reconstruction, stabilize ankle ligaments, stabilize and derotate midfoot and clean up scar tissue. Stage 2: address any residual deformity, resection of malunion and ankle arthrodesis first total ankle implant ([facility]). Patient has seen cardiology for cardiac clearance. Medical clearance per PCP Dr. Estevez. Rx given for whe
[2020-06-13 16:04] LABS: Microscopic,Cath URINE MICROSCOPIC (MICROSCOPIC)
[2020-06-13 16:34] LABS: Appearance,Urine/Cath CLEAR (Clear); Bilirubin,Cath Negative (Negative); Blood, Urine/Cath Negative (Negative); Color,Urine/Cath YELLOW (Yellow); Glucose,Urine/Cath (UA) Negative (Negative); Ketones,Urine/Cath Negative (Negative); Leukocyte Esterase,Cath Negative (Negative); Nitrate,Cath Negative (Negative); Protein,Urine/Cath Negative (Negative); Urobilinogen,Cath 0.2 EU/dl (0.2)
--- NOTE | 2020-06-14 16:15 | P.PN_ITS ---
[facility] Anesthesia Record Part II Discharge Time: 16:18 Destination: Surgical Day Care (OP Surgery) PACU nurse assessment reviewed?: Yes Patient Condition:: Good Anesthesia Complications:: None Swallowing reflex intact?: Yes Cyanosis?: No Blood Pressure: 140/90 Pulse Rate: 92 Temperature: 97.5 F Mental Status: Alert & Oriented Pain level:: 0 Nausea and/or vomitting:: Nauseated Intake, IV Amount: 0
[2020-06-14 16:16] VITALS: BP 140/90; PULSE 92; TEMP 36.4
== END 2020-06-13 17:57 | disposition home or self-care (01) ==
LOC: OR 06:06
PROVIDERS: PCP Family Medicine; Visit Provider Podiatrist
PROC: (CPT 27870; principal; 2020-06-13 07:30)
DX: M21.41 Flat foot [pes planus] (acquired), right foot (principal); M76.821 Posterior tibial tendinitis, right leg; M66.371 Spontaneous rupture of flexor tendons, right ankle and foot; M66.871 Spontaneous rupture of other tendons, right ankle and foot; M19.071 Primary osteoarthritis, right ankle and foot; M24.471 Recurrent dislocation, right ankle; M25.871 Other specified joint disorders, right ankle and foot; I10 Essential (primary) hypertension; Z79.899 Other long term (current) drug therapy
CPT/HCPCS: 27870; 28300; 28715; 28735; 27698; 27654; 73600; 73620; 73630; 73650; 76000; 81001; 96374; C1713; C1734; C1762; C1776

== ENCOUNTER → 2020-07-12 11:00 | Outpatient (CLI) | payer OTHER, SELFPAY ==
--- NOTE | 2020-07-12 11:00 | CT_ITS ---
PROCEDURE: CT ANKLE RT WO CON CLINICAL HISTORY: pain, pre-operative planning Right TAR surgical planning Ankle pain, preoperative planning COMPARISON: CR ANKL3 ANKLE-LT-3 VIEWS from 07/26/2015 CR [id number] XR foot wt bearing RT 3V from 12/25/2017 MR MR ANKLE RT WO/W CON from 05/24/2020 CR XR ANKLE RT 2V from 06/13/2020 CR XR ANKLE RT 2V from 06/13/2020 TECHNIQUE: Axial images obtained with sagittal and coronal reformats. All CT scans at the facility use one or more dose reduction, viz: automated exposure control, ma/kV adjustment per patient size (including targeted exams where dose is matched to indication, i.e. head), or iterative reconstruction technique. FINDINGS: Axial images are obtained from the distal femur through the ankle. Study is performed for surgical planning. There are mild osteoarthritic changes the knee at the patellofemoral joint and medial compartment. There is a mild amount of subcutaneous edema within the right lower extremity. Osteoarthritic changes are present at the talotibial joint. There has been prior talocalcaneal fusion with the lag screw present within the talocalcaneal region and an additional screw within the calcaneus. Lateral bone plate is present at the calcaneocuboid region with fusion of that joint. There is a fracture or osteotomy site through the neck of the talus which is nondisplaced. There has been prior talonavicular fusion.. Bony fragmentation is present at the navicular cuneiform region and at the mid and lateral cuneiform a screws present from the medial/mid cuneiform region into the navicular. A medial staple is present at the navicular cuneiform region there is an anchor screw at the lateral malleolar region. Generalized amorphous calcification noted within the soft tissues in the midfoot area. There is diffuse thickening of the subcutaneous tissues in the foot and ankle. No obvious fluid collections apparent. There is a small cortical defect within the lateral aspect of the talar dome measuring approximately 4 mm. This may be due to an area of osteochondritis versus a subchondral cyst. IMPRESSION: Charcot joint of the midfoot status post extensive foot surgery as described above. There is a fracture or osteotomy site through the talus neck. Extensive degenerative changes and postsurgical changes as detailed above. There is a small defect within the talar dome laterally and may be due to an area of osteochondrosis versus a subchondral cyst Dictated by: Thai Meléndez MD 07/15/2020 11:20 Thai Meléndez MD in [place] 07/15/2020 11:20
== END ==
PROVIDERS: PCP Family Medicine; Visit Provider Podiatrist
DX: M19.071 Primary osteoarthritis, right ankle and foot (principal); M25.871 Other specified joint disorders, right ankle and foot; G89.18 Other acute postprocedural pain; Z98.890 Other specified postprocedural states
CPT/HCPCS: 73700

== ENCOUNTER → 2020-07-27 10:42 | Outpatient (CLI) | payer OTHER, SELFPAY ==
--- NOTE | 2020-07-27 10:51 | XR_ITS ---
PROCEDURE: XR CHEST 2V CLINICAL HISTORY: HX OF HIGH BLOOD PRESSURE COMPARISON: CT ABDPELW CT ABD PELVIS W/ CONTRAST from 01/29/2015 CR XR CHEST 2V from 05/10/2020 FINDINGS: The cardiomediastinal silhouette and pulmonary vascularity are within normal limits. The lungs are clear without infiltrates, suspicious nodules, or pleural effusions. Increased density is present in the right infrahilar region similar to the previous exam and may be related to hilar vessels. No acute bony findings. IMPRESSION: No acute findings. Dictated by: Thai Meléndez MD 07/27/2020 14:48 Thai Meléndez MD in [place] 07/27/2020 14:48
--- NOTE | 2020-07-27 11:35 | ECG_ITS ---
APPROVED REPORT Exam: Resting ECG HR:84 bpm ECG Measurements Heart Rate 84 AXES CO 146 P 26 QRSd 96 QRS -2 QT 416 T 38 QTc 491 Conclusion Normal sinus rhythm Prolonged QT Abnormal ECG Electronically signed by : Rich Dwyer, 07/28/2020 16:31:53
[2020-07-27 11:48] LABS: Basophils % 0.2 % (0.1-2.0); Eosinophils # 0.1 K/mm3 (0.0-0.4); Eosinophils % 2.3 % (0.1-12.0); Hematocrit 38.5 % (37.0-47.0); Hemoglobin 12.3 g/dL (12.2-16.2); Lymphocytes # 1.5 K/mm3 (0.7-4.5); Lymphocytes % 27.2 % (10-50); Mean Corpuscular Hemoglobin 29.6 pg (27.0-31.2); Mean Corpuscular Volume 92.4 fl (81-99); Mean Platelet Volume 7.7 fl (7.4-10.4); Monocytes # 0.3 K/mm3 (0.1-1.0); Neutrophils # 3.6 K/mm3 (1.8-7.8); Neutrophils % 64.4 % (37.0-80.0); Platelet Count 351 K/mm3 (142-424); Red Blood Count 4.16 M/mm3 (4.20-5.40); White Blood Count 5.7 K/mm3 (4.8-10.8)
[2020-07-27 12:29] LABS: Erythrocyte Sedimentation Rate 53 mm/hr (0-30)
[2020-07-27 13:01] LABS: Alanine Aminotransferase 22 U/L (12-78); Albumin Level 4.1 g/dl (3.5-5.0); Albumin/Globulin Ratio 1.4 (1.1-1.8); Alkaline Phosphatase 93 U/L (38-126); Anion Gap 10.4 mEq/L (5-15); Aspartate Amino Transferase 23 U/L (14-36); Bilirubin,Total 0.4 mg/dl (0.2-1.3); Blood Urea Nitrogen 16 mg/dl (7-17); Calcium 9.7 mg/dl (8.4-10.2); Carbon Dioxide 30 mmol/L (22.0-30.0); Chloride 103 mmol/L (98-107); Estimated Glomerular Filt Rate 64 ml/min (>60); GFR (African American) 77 ML/MIN (>60); Globulin 2.9 g/dL (1.3-3.2); Glucose 95 mg/dl (74-100); Potassium 4.4 mmoL/L (3.5-5.1); Sodium 139 mmol/L (136-145)
[2020-07-27 13:06] LABS: C-Reactive Protein 9.7 mg/L (0-4)
== END ==
PROVIDERS: PCP Family Medicine; Visit Provider Podiatrist
DX: Z01.818 Encounter for other preprocedural examination (principal); S91.301A Unspecified open wound, right foot, initial encounter
CPT/HCPCS: 36415; 71046; 80053; 85025; 85651; 86140; 93005

== ENCOUNTER → 2020-07-31 14:09 | Outpatient (CLI) | payer OTHER, SELFPAY ==
[2020-07-31 15:38] LABS: Coronavirus 19 IgG Antibody Negative (Negative); Coronavirus 19 IgM Antibody Negative (Negative)
== END ==
PROVIDERS: PCP Family Medicine; Visit Provider Podiatrist
DX: Z01.818 Encounter for other preprocedural examination (principal); Z20.822 Contact with and (suspected) exposure to COVID-19
CPT/HCPCS: 86328

== ENCOUNTER 2020-08-01 06:10 | Day surgery (SDC) | payer OTHER, SELFPAY ==
[2020-07-31 13:45] VITALS: BMI 32.9
[2020-08-01] VITALS (16 sets, daily range): BP systolic 101–137; BP diastolic 63–84; PULSE 71–87; RESP 12–18; TEMP 36.2–36.6; O2SAT 93–97
--- NOTE | 2020-08-01 07:09 | HMH.ANESCL ---
[facility] Anesthesia Checklist - Patient Identification Patient Identification: Arm Band - Structural Data Admitted From: Home Planned Operative Procedure/s: Wound debridement Consent for Planned Operative Procedure(s) Verified: Yes - Additional verifications Anesthesia Reactions: No Hx Blood Transfusions: No Blood Transfusion Reaction: No - Airway Assessment C-Spine Mobility Assessed: Yes TMJ Mobility Assessed: Yes Dentition: Good Dentition - Neurological Assessment Level of Consciousness: Awake, Alert Hx Seizures: No Numbness or tingling in extremities: No - Anesthesia Plan Anesthesia Risk discussed: Yes Anesthesia Plan: Verified ASA Class: II Anesthesia Type: General [facility] History I have reviewed the patient's past medical history: Yes Medical History: Reports:: Depression, Hypertension Denies:: Cancer, Diabetes Mellitus Type 1, Diabetes Mellitus Type 2, Internal Pacemaker, Lung Disease, MRSA, Seizures *Have you ever received a pneumonia vaccine?: Yes *Have you received a flu vaccine this season?: Yes Other Medical History: Reports: Arthritis. Denies: Blood Transfusion Reaction Anesthesia experience/problems:: PONV. Son- Hx of MH Laterality Cases: Bilateral: Other Other Surgeries: Yes: Hernia Repair. No: Pacemaker Amputation: No Fractures: Yes - *Social History Last grade of school completed: Advanced degree Smoking Status: Former smoker Alcohol Intake: never Alcohol Intake Frequency:: holidays/special occasions only Substance Use Type: denies use *Occupational Status:: employed Housing: house Household Members: spouse, family *Travel in the last 8 weeks: None - Psychiatric History Pschychiatric History:: Reports:: Depression Family Hx:: Cancer, Diabetes, Heart Attack, Hyperlipidemia, Hypertension
--- NOTE | 2020-08-01 07:32 | HMH.OPNOTE ---
Date of procedure: 08/01/20 Pre-op Diagnosis:: 1. Right foot lateral surgical wound dehiscence 2. Right foot wound s/p reconstruction on 06/13/20 3. Right foot 1st MPJ ulcer 4. Right foot cellulitis Post-op Diagnosis:: Same Procedure performed:: 1. Right deep ankle wound debridement (Versajet debridement: cpt 48590) 2. Right foot 1st MPJ wound debridement with delayed primary closure 3. Right foot bone biospy 4. Right application of Sheree 5. Right foot application of KCI/3M SNAP wound vac Surgeon:: Ursula Cheek DPM BRIDGE BUILDER:: Other (Keisha Cesar) Anesthesia: GETA, local (30cc 0.5% marcaine plain) Estimated blood loss (mL): 10 Clinical Note:: Patient is a 60F who presents s/p Right medial calcaneal displacement osteotomy (MCDO), NC AD, calcaneal osteotomy (lateral column lengthening), midfoot osteotomy with cuboid wedge, modified Brostr?m, ALLYN, PTT debridement and repair, peroneal tendon brevis to longus anastomosis, foot synovectomy, extensor hallucis longus lengthening, application of bone graft, tissue graft, application of posterior splint, application of Prevana incisional wound vac on 06/13/20. She had a wound dehiscence. Concerned over lateral incision, fibrotic tissue eschar. I explained to the patient this was from the amount of contracture and skin tension due to foot realignment. I explained that even though the wound is improving, the progress is slow. I recommended a more aggressive full thickness debridement and wound vac. I explained doing a full-thickness debridement now would result in likely exposed hardware or deep structures, so will use topical Santyl and schedule surgery. She was started on Doxycycline for elevated ESR and CRP. Discussed staged 2nd surgery: Including total ankle replacement vs arthrodesis and possible skin grafting vs application of wound vac. Continue NWB. Aspirin 81 mg, Lovenox complete. Discussed signs and symptoms of DVT/PE. Ice, elevate and Motrin for pain and swelling. Patient understands that they could have wound healing complications including delayed healing and infection. We discussed that if the wound does not heal, it is possible that they may need more debridement, grafting or antibiotics. We discussed the risks and benefits in great detail. Other surgical risks include: prolonged pain and swelling, further infection requiring oral or IV antibiotics, delay in healing of soft tissue or bone, nerve or blood vessel damage, CRPS/RSD, DVT, anesthesia complications, and even . All questions answered. Patient verbalized understanding. Consent obtained. Cardiac clearance obtained again. Operative findings:: Right dorsal medial first MPJ wound. Post debridement sharply excisionally full-thickness with a 15 blade forceps and curette the wound was 100% granular. No signs of infection noted. No purulence malodor or deep bone involvement. Preclosure the wound measured 1.4x0.6x0.3cm. Wound noted to the right lateral foot extending from the fifth metatarsal base to the ankle several centimeters proximal to the ankle joint. Wound was full-thickness. Predebridement wound was 11 x 3 x 0.4 cm. Post debridement the wound measured 11.5 x 2.2 x 0.4cm. There was an area of tracking over the sinus tarsi, to the bone. No deep purulence. Post debridment the wound was 100% granular with bleeding edges noted. Although the Sheree and VAC cover the wound, concern over lack of subcutaneous tissue and possibility of recurrent or deeper infection. Will monitor wound and bone cultures. Operative note:: On this date and time patient was deemed an appropriate surgical candidate. With informed consent signed, the patient was taken to the operating theater. The patient was positioned supine. General anesthesia was induced. Mid-calf tourniquet used. Pre-op right ankle block given with 30 cc 0.5% marcaine plain. 2g of Ancef given. Right 1st MPJ wound debridement, delayed primary closure: The right extremity was prepped and draped in norm
--- NOTE | 2020-08-01 08:40 | XR_ITS ---
PROCEDURE: XR FOOT RT MIN 3V CLINICAL INDICATION: Post op wound Follow-up surgery COMPARISON: CR XR FOOT WT BEARING LT 3V from 04/04/2020 CR XR FOOT WT BEARING RT 3V from 04/04/2020 CR XR FOOT RT 2V from 06/13/2020 CR XR FOOT RT MIN 3V from 06/13/2020 FINDINGS: The cast has been removed. Bony hardware is unchanged from prior bony fusion at the talocalcaneal, calcaneocuboid, and talonavicular and cuneiform fusion. No hardware malfunction evident. There is diffuse osteopenia. Lucency is present at the navicular cuneiform region suggesting incomplete fusion. IMPRESSION: Postsurgical changes with osteopenia with bony hardware intact as described above, no change with no acute finding. Dictated by: Thai Meléndez MD 08/01/2020 13:00 Thai Meléndez MD in [place] 08/01/2020 13:00
--- NOTE | 2020-08-01 09:25 | XR_ITS ---
PROCEDURE: XR ANKLE RT MIN 3V CLINICAL INDICATION: Post op Follow-up surgery COMPARISON: CR XR ANKLE WT BEARING RT MIN 3V from 04/04/2020 CR XR ANKLE WT BEARING LT MIN 3V from 04/04/2020 CR XR ANKLE RT 2V from 06/13/2020 CR XR ANKLE RT 2V from 06/13/2020 FINDINGS: Extensive postsurgical changes are present. The bony hardware described on the previous exam does not appear changed. There is diffuse osteopenia. A defect is present within the talar dome laterally measuring 5 mm. The cast has been removed. An overlying surgical drain is present IMPRESSION: Extensive postsurgical changes. A 5 mm defect is present in the talar dome laterally. This could be a postsurgical defect, osteochondral defect, or an area of infection. Dictated by: Thai Meléndez MD 08/01/2020 12:56 Thai Meléndez MD in [place] 08/01/2020 12:56
--- NOTE | 2020-08-01 09:30 | HMH.ANESI ---
[facility] Anesthesia Record Part I Intake, IV Amount: 1,000 Estimated blood loss (mL): 10 Urine output (mL): 0 Blood Pressure: 101/63 SaO2: 93 Pulse Rate: 85 Respiratory Rate: 12 Temperature: 97.1 F Patient is:: Drowsy Stable to PACU at:: 09:23
--- NOTE | 2020-08-01 13:41 | HMH.ANESII ---
[facility] Anesthesia Record Part II Discharge Time: 10:23 Destination: Surgical Day Care (OP Surgery) PACU nurse assessment reviewed?: Yes Patient Condition:: Good Anesthesia Complications:: None Swallowing reflex intact?: Yes Cyanosis?: No Blood Pressure: 131/81 Pulse Rate: 79 Temperature: 97.8 F Mental Status: Alert & Oriented Pain level:: 0 Nausea and/or vomitting:: None Intake, IV Amount: 1,000
== END 2020-08-01 12:00 | disposition home or self-care (01) ==
LOC: OR 06:11
PROVIDERS: PCP Family Medicine; Visit Provider Podiatrist
PROC: (CPT 11042; principal; 2020-08-01 07:30)
DX: T81.31XA Disruption of external operation (surgical) wound, not elsewhere classified, initial encounter (principal); G89.18 Other acute postprocedural pain; L03.115 Cellulitis of right lower limb
CPT/HCPCS: 11042; 11045; 73610; 73630; 87070; 87075; 87077; 87186; 87205; 96374; J2405

== ENCOUNTER → 2020-08-15 13:05 | Outpatient (CLI) | payer OTHER, SELFPAY ==
[2020-08-15 14:23] LABS: Basophils % 0.2 % (0.1-2.0); Eosinophils # 0.1 K/mm3 (0.0-0.4); Eosinophils % 1.7 % (0.1-12.0); Hematocrit 38.3 % (37.0-47.0); Hemoglobin 12.5 g/dL (12.2-16.2); Lymphocytes # 1.8 K/mm3 (0.7-4.5); Lymphocytes % 28.6 % (10-50); Mean Corpuscular HGB Conc 32.7 g/dL (31.8-35.4); Mean Corpuscular Hemoglobin 29.3 pg (27.0-31.2); Mean Corpuscular Volume 89.6 fl (81-99); Mean Platelet Volume 7.5 fl (7.4-10.4); Monocytes # 0.4 K/mm3 (0.1-1.0); Monocytes % 6.1 % (1.7-9.3); Neutrophils # 4.1 K/mm3 (1.8-7.8); Neutrophils % 63.5 % (37.0-80.0); Platelet Count 346 K/mm3 (142-424); Red Blood Count 4.28 M/mm3 (4.20-5.40); Red Cell Distribution Width 14.4 % (11.5-17.5); White Blood Count 6.4 K/mm3 (4.8-10.8)
[2020-08-15 15:09] LABS: Chloride 103 mmol/L (98-107); Potassium 4.7 mmoL/L (3.5-5.1); Sodium 138 mmol/L (136-145)
[2020-08-15 15:12] LABS: Alanine Aminotransferase 23 U/L (12-78); Albumin Level 3.9 g/dl (3.5-5.0); Albumin/Globulin Ratio 1.4 (1.1-1.8); Alkaline Phosphatase 104 U/L (38-126); Anion Gap 10.7 mEq/L (5-15); Aspartate Amino Transferase 29 U/L (14-36); Bilirubin,Total 0.4 mg/dl (0.2-1.3); Blood Urea Nitrogen 20 mg/dl (7-17); Calcium 9.6 mg/dl (8.4-10.2); Carbon Dioxide 29 mmol/L (22.0-30.0); Estimated Glomerular Filt Rate 57 ml/min (>60); GFR (African American) 68 ML/MIN (>60); Globulin 2.7 g/dL (1.3-3.2); Glucose 97 mg/dl (74-100); Total Protein,Serum 6.6 g/dl (6.3-8.2)
[2020-08-15 15:23] LABS: C-Reactive Protein 10.2 mg/L (0-4)
[2020-08-15 16:18] LABS: Erythrocyte Sedimentation Rate 31 mm/hr (0-30)
== END ==
PROVIDERS: Visit Provider Podiatrist
DX: S91.301A Unspecified open wound, right foot, initial encounter (principal)
CPT/HCPCS: 36415; 80053; 85025; 85651; 86140

== ENCOUNTER → 2020-08-20 13:41 | Outpatient (CLI) | payer OTHER, SELFPAY ==
[2020-08-20 14:35] LABS: Adenovirus,PCR Not Detected (NotDetected); Coronavirus 229E Not Detected (NotDetected); Coronavirus NL63 Not Detected (NotDetected); Coronavirus OC43 Not Detected (NotDetected); Coronovirus HKU1,PCR Not Detected (NotDetected); Human Metapneumovirus Not Detected (NotDetected); Influenza A, PCR Not Detected (NotDetected); Influenza AH1, 2009 Not Detected (NotDetected); Influenza AH1, PCR Not Detected (NotDetected); Influenza AH3,PCR Not Detected (NotDetected); Influenza B, PCR Not Detected (NotDetected); Parainfluenza 1, PCR Not Detected (NotDetected); Parainfluenza 2, PCR Not Detected (NotDetected); Rhinovirus/Enterovirus Not Detected (NotDetected)
[2020-08-20 14:36] LABS: Bordetella Pertussis Not Detected (NotDetected); Chlamydophila Pneumoniae, PCR Not Detected (NotDetected); Coronavirus 19, PCR Not Detected (NotDetected); Mycoplasma Pneumoniae, PCR Not Detected (NotDetected); Parainfluenza 3, PCR Not Detected (NotDetected); Parainfluenza 4, PCR Not Detected (NotDetected); Respiratory Syncytial Virus Not Detected (NotDetected)
[2020-08-20 14:40] LABS: Basophils % 0.2 % (0.1-2.0); Eosinophils # 0.1 K/mm3 (0.0-0.4); Eosinophils % 0.5 % (0.1-12.0); Hematocrit 38.1 % (37.0-47.0); Hemoglobin 12.1 g/dL (12.2-16.2); Lymphocytes % 17.3 % (10-50); Mean Corpuscular HGB Conc 31.7 g/dL (31.8-35.4); Mean Corpuscular Hemoglobin 28.5 pg (27.0-31.2); Mean Corpuscular Volume 89.9 fl (81-99); Mean Platelet Volume 7.9 fl (7.4-10.4); Monocytes # 0.6 K/mm3 (0.1-1.0); Monocytes % 5.3 % (1.7-9.3); Neutrophils # 8.7 K/mm3 (1.8-7.8); Neutrophils % 76.7 % (37.0-80.0); Platelet Count 353 K/mm3 (142-424); Red Blood Count 4.24 M/mm3 (4.20-5.40); Red Cell Distribution Width 14.7 % (11.5-17.5); White Blood Count 11.3 K/mm3 (4.8-10.8)
[2020-08-20 14:45] LABS: Chloride 105 mmol/L (98-107); Sodium 139 mmol/L (136-145)
[2020-08-20 14:46] LABS: Potassium 4.3 mmoL/L (3.5-5.1)
[2020-08-20 14:48] LABS: Alanine Aminotransferase 19 U/L (12-78); Alkaline Phosphatase 90 U/L (38-126); Aspartate Amino Transferase 20 U/L (14-36); Bilirubin,Total 0.5 mg/dl (0.2-1.3); Blood Urea Nitrogen 15 mg/dl (7-17); Estimated Glomerular Filt Rate 73 ml/min (>60); GFR (African American) 89 ML/MIN (>60)
[2020-08-20 14:49] LABS: Albumin Level 3.8 g/dl (3.5-5.0); Albumin/Globulin Ratio 1.3 (1.1-1.8); Anion Gap 9.3 mEq/L (5-15); Calcium 9.3 mg/dl (8.4-10.2); Carbon Dioxide 29 mmol/L (22.0-30.0); Glucose 143 mg/dl (74-100); Total Protein,Serum 6.8 g/dl (6.3-8.2)
[2020-08-20 14:54] LABS: C-Reactive Protein 63.6 mg/L (0-4)
[2020-08-20 15:33] LABS: Erythrocyte Sedimentation Rate 75 mm/hr (0-30)
[2020-08-20 16:52] LABS: Hemoglobin A1C 5.1 % (4.0-6.0)
== END ==
PROVIDERS: Podiatrist; PCP Family Medicine; Visit Provider Nurse Practitioner
DX: Z98.890 Other specified postprocedural states (principal); Z20.822 Contact with and (suspected) exposure to COVID-19; T81.31XD Disruption of external operation (surgical) wound, not elsewhere classified, subsequent encounter; L03.115 Cellulitis of right lower limb
CPT/HCPCS: 36415; 80053; 83036; 85025; 85651; 86140; 87581; 87633; 87798

== ENCOUNTER 2020-08-22 06:32 | Day surgery (SDC) | payer OTHER, SELFPAY ==
[2020-08-22] VITALS (13 sets, daily range): BP systolic 94–123; BP diastolic 46–69; PULSE 70–90; RESP 16–18; TEMP 36.6–37.5; O2SAT 89–97; BMI 35.4
--- NOTE | 2020-08-22 06:59 | P.PN_ITS ---
[facility] Anesthesia Checklist - Patient Identification Patient Identification: Arm Band - Structural Data Admitted From: Home Planned Operative Procedure/s: I & D Consent for Planned Operative Procedure(s) Verified: Yes - NPO Status Verified Time NPO: 00:00 - Additional verifications Anesthesia Reactions: No Hx Blood Transfusions: No Blood Transfusion Reaction: No - Airway Assessment C-Spine Mobility Assessed: Yes TMJ Mobility Assessed: Yes Dentition: Good Dentition - Neurological Assessment Level of Consciousness: Awake, Alert Hx Seizures: No Numbness or tingling in extremities: No - Anesthesia Plan Anesthesia Risk discussed: Yes Anesthesia Plan: Verified ASA Class: II Anesthesia Type: General [facility] History I have reviewed the patient's past medical history: Yes Medical History: Reports:: Depression, Hypertension Denies:: Cancer, Diabetes Mellitus Type 1, Diabetes Mellitus Type 2, Internal Pacemaker, Lung Disease, MRSA, Seizures *Have you ever received a pneumonia vaccine?: No *Have you received a flu vaccine this season?: Yes Other Medical History: Reports: Arthritis. Denies: Blood Transfusion Reaction Anesthesia experience/problems:: Family hx of MH. PONV Laterality Cases: Bilateral: Other Other Surgeries: Yes: Hernia Repair. No: Pacemaker Amputation: No Fractures: Yes - *Social History Smoking Status: Former smoker Alcohol Intake: never Alcohol Intake Frequency:: holidays/special occasions only Substance Use Type: denies use *Occupational Status:: employed Housing: house Household Members: spouse, family *Travel in the last 8 weeks: None - Psychiatric History Pschychiatric History:: Reports:: Depression Family Hx:: Cancer, Diabetes, Heart Attack, Hyperlipidemia, Hypertension
--- NOTE | 2020-08-22 07:34 | HMH.OPNOTE ---
Date of procedure: 08/22/20 Pre-op Diagnosis:: 1. Status post foot surgery, 08/01/20 2. Postoperative wound dehiscence 3. Cellulitis of right foot 4. Wound of right foot, ankle 5. Neuritis of right foot 6. MRSA infection 7. Arthrodesis malunion Post-op Diagnosis:: Same Procedure performed:: 1. Right deep ankle wound debridement (Versajet debridement: cpt 57881) 2. Right foot partial delayed primary closure 3. Right foot percutaneous bone biospy x4 4. Right foot irrigation and debridement PICC placement. IV Daptomycin 1g (after bone biospy) Surgeon:: Ursula Cheek DPM CHIMNEY BUILDER BRICK:: Other (Keisha Cesar) Anesthesia: GETA, local (30cc 0.5% marcaine plain) Estimated blood loss (mL): 20 Clinical Note:: Patient is a 60F who had surgery on 08/01/20, s/p right deep ankle wound debridement (Versajet debridement: cpt 88146), right foot 1st MPJ wound debridement with delayed primary closure, right foot bone biospy, right application of Sheree, right foot application of KCI/3M SNAP wound vac. Biopsies positive for MRSA. Need repeat biospies to evaluate for bone infection. We discussed the culture results in detail. I explained given the previous biopsy results its prudent to proceed with wound debridement and another biopsy. I recommend PICC line with IV antibiotics. If the biopsy results are positive we will do antibiotics 4 to 6 weeks. If the bone biopsies are negative for infection, plan for IV antibiotics x2 weeks. We discussed the risks and benefits in great detail. We discussed that if the wound does not heal, it is possible that they may need more debridement, grafting or antibiotics. Other surgical risks include: prolonged pain and swelling, further infection requiring oral or IV antibiotics, delay in healing of soft tissue or bone, nerve or blood vessel damage, CRPS/RSD, DVT, anesthesia complications, and even . All questions answered. Patient verbalized understanding and agreement with the treatment plan. Consent obtained. Operative findings:: Wound noted to the right lateral foot extending from the fifth metatarsal base to the ankle several centimeters proximal to the ankle joint. Wound was full-thickness. Predebridement wound was ~11 x 2.1 x 0.2 cm. Post debridement the wound measured 11.2 x 2.4 x 0.4cm. There was an area of tracking over the sinus tarsi, to the bone. No deep purulence. Bone cultures and biopsies performed. Post debridment the wound was 100% granular with bleeding edges noted. Sutures used to re-approximate the skin, doing a partial delayed primary closure. Post partial DPC, the wound measures: 11.2 x 1.7 x 0.3cm. Although the wound looks healthier, concern over lack of subcutaneous tissue and possibility of recurrent or deeper infection. Will monitor wound and bone cultures. Operative note:: On this date and time patient was deemed an appropriate surgical candidate. With informed consent signed, the patient was taken to the operating theater. The patient was positioned supine. General anesthesia was induced. Pre-op right ankle block given with 30 cc 0.5% marcaine plain. Right foot percutaneous bone biospy x4: Attention was directed distal to the wound, inferior to the wound over the calcaneus, superior to the wound over the foot and just superior to the distal fibula. 15 blade was used to make a stab incision, blunt dissection down to bone. A Jamshidi needle was inserted for a percutaneous bone biopsy x4. A piece of the superior foot and the calcaneus was also sent as bone culture. IV Daptomycin 1g given after bone biospies. Right lateral ankle (Versajet) deep wound debridement: Attention was directed to the right lateral foot and ankle where a wound was noted extending from the fifth metatarsal base just proximal to the ankle joint. Predebridement wound was mixed of fibrotic and granular tissue. Predebridement wound was ~11 x 2.1 x 0.2 cm. The wound was debrided with the Versajet, removing non-viable devitalized tissue from wound with h
--- NOTE | 2020-08-22 08:30 | XR_ITS ---
PROCEDURE: XR ANKLE RT MIN 3V CLINICAL INDICATION: Post op Follow-up surgery and wound debridement COMPARISON: CR XR ANKLE WT BEARING LT MIN 3V from 04/04/2020 CR XR ANKLE RT 2V from 06/13/2020 CR XR ANKLE RT 2V from 06/13/2020 CR XR FOOT RT MIN 3V from 08/01/2020 CR XR ANKLE RT MIN 3V from 08/01/2020 CR XR FOOT RT MIN 3V from 08/22/2020 FINDINGS: Extensive postsurgical changes are present from talocalcaneal, calcaneocuboid, navicular cuneiform and talonavicular fusion.. The bony hardware described on the previous exam does not appear changed. There is diffuse osteopenia. A defect is present within the talar dome laterally measuring 5 mm. The cast has been removed. Diffuse soft tissue swelling is present laterally with heterogeneous density of the soft tissues some of which may be due to overlying bandage artifact. IMPRESSION: Postsurgical change with diffuse osteopenia. No change defect within the lateral talus. Diffuse soft tissue swelling laterally with bandage artifact. Dictated by: Thai Meléndez MD 08/22/2020 15:36 Thai Meléndez MD in [facility] 08/22/2020 15:36
--- NOTE | 2020-08-22 09:03 | HMH.ANESI ---
[facility] Anesthesia Record Part I Intake, IV Amount: 300 Estimated blood loss (mL): 20 Urine output (mL): 0 Blood Pressure: 105/66 SaO2: 94 Pulse Rate: 80 Respiratory Rate: 16 Temperature: 99.5 F Patient is:: Drowsy Stable to PACU at:: 08:59
--- NOTE | 2020-08-22 10:19 | SUR.PHASEII ---
Denae DUBOIS RN AT BEDSIDE STARTING ON PICC INSERTION. PT TOLERATING WELL SO FAR, EYES CLOSED.
--- NOTE | 2020-08-22 10:44 | XR_ITS ---
PROCEDURE: XR CHEST PORTABLE PICC PLAC CLINICAL HISTORY: PICC line placement COMPARISON: CR XR CHEST 2V from 05/10/2020 CR XR CHEST 2V from 07/27/2020 FINDINGS: A PICC line has been inserted by the left subclavian approach. The tip is in satisfactory position in the region of the superior vena cava Mild atelectatic changes are present in the left lower lobe. Patchy density is present in the left perihilar region may be due to an area of atelectasis or infiltrate. No acute bony abnormalities. IMPRESSION: PICC line in good position. Left perihilar and left lower lobe atelectasis and/or infiltrate Dictated by: Thai Meléndez MD 08/22/2020 11:17 Thai Meléndez MD in [facility] 08/22/2020 11:17
--- NOTE | 2020-08-22 10:44 | SUR.PHASEII ---
CXR ORDERED FOR PICC LINE PLACEMENT, RADIOLOGY AT BEDSIDE.
--- NOTE | 2020-08-22 11:14 | SUR.PHASEII ---
PICC LINE PLACEMENT VERIFIED IN SUPERIOR [facility] PER DR. CANCINO.
--- NOTE | 2020-08-22 11:52 | SUR.PHASEII ---
PICC LINE PLACEMENT VERIFIED IN SUPERIOR [facility] PER DR. CANCINO.
--- NOTE | 2020-08-23 11:41 | HMH.ANESII ---
[facility] Anesthesia Record Part II Discharge Time: 09:39 Destination: [facility] PACU nurse assessment reviewed?: Yes Patient Condition:: Good Anesthesia Complications:: None Swallowing reflex intact?: Yes Cyanosis?: No Blood Pressure: 94/54 Pulse Rate: 82 Temperature: 97.8 F Mental Status: Alert & Oriented Pain level:: 0 Nausea and/or vomitting:: None Intake, IV Amount: 1,500
[2020-08-23 11:42] VITALS: BP 94/54; PULSE 82; TEMP 36.6
== END 2020-08-22 11:18 | disposition home or self-care (01) ==
LOC: OR 06:33
PROVIDERS: PCP Family Medicine; Visit Provider Podiatrist
PROC: (CPT 11044; principal; 2020-08-22 07:30)
DX: T81.31XA Disruption of external operation (surgical) wound, not elsewhere classified, initial encounter (principal); T84.498A Other mechanical complication of other internal orthopedic devices, implants and grafts, initial encounter; G89.18 Other acute postprocedural pain; L03.115 Cellulitis of right lower limb; Z87.891 Personal history of nicotine dependence; Z79.82 Long term (current) use of aspirin
CPT/HCPCS: 11044; 11047; 36569; 71045; 73610; 73630; 83605; 87070; 87077; 87186; 87205; 96374; C1751; J0878; J2405

== ENCOUNTER 2020-08-23 11:51 | Outpatient (CLI) | payer OTHER, SELFPAY ==
[2020-08-23 12:05] VITALS: BP 120/70; PULSE 76; RESP 18; TEMP 36.4; O2SAT 97
[2020-08-23 13:12] VITALS: BP 128/54; PULSE 73; RESP 18
== END 2020-08-23 13:12 | disposition home or self-care (01) ==
LOC: INF 11:51
PROVIDERS: Visit Provider Nurse Practitioner
DX: L03.115 Cellulitis of right lower limb (principal)
CPT/HCPCS: 96365; J0878

== ENCOUNTER 2020-08-24 11:55 | Outpatient (CLI) | payer OTHER, SELFPAY ==
[2020-08-24 12:00] VITALS: BMI 35.0
[2020-08-24 12:12] LABS: Basophils % 0.1 % (0.1-2.0); Eosinophils # 0.1 K/mm3 (0.0-0.4); Hemoglobin 10.8 g/dL (12.2-16.2); Lymphocytes # 1.7 K/mm3 (0.7-4.5); Lymphocytes % 25.4 % (10-50); Mean Corpuscular HGB Conc 31.9 g/dL (31.8-35.4); Mean Corpuscular Hemoglobin 28.7 pg (27.0-31.2); Mean Platelet Volume 7.6 fl (7.4-10.4); Monocytes # 0.4 K/mm3 (0.1-1.0); Monocytes % 6.2 % (1.7-9.3); Neutrophils # 4.4 K/mm3 (1.8-7.8); Neutrophils % 66.4 % (37.0-80.0); Platelet Count 351 K/mm3 (142-424); Red Blood Count 3.78 M/mm3 (4.20-5.40); Red Cell Distribution Width 14.6 % (11.5-17.5); White Blood Count 6.6 K/mm3 (4.8-10.8)
[2020-08-24 12:17] LABS: Chloride 103 mmol/L (98-107); Potassium 3.6 mmoL/L (3.5-5.1); Sodium 139 mmol/L (136-145)
[2020-08-24 12:20] LABS: Anion Gap 9.6 mEq/L (5-15); Blood Urea Nitrogen 23 mg/dl (7-17); Calcium 9.1 mg/dl (8.4-10.2); Carbon Dioxide 30 mmol/L (22.0-30.0); Creatine Kinase 44 U/L (30-135); Creatinine Clearance Estimated 85 mL/min (50-200); Estimated Glomerular Filt Rate 57 ml/min (>60); GFR (African American) 68 ML/MIN (>60); Glucose 104 mg/dl (74-100)
[2020-08-24 12:25] VITALS: BP 146/86; PULSE 78; RESP 18; TEMP 36.3; O2SAT 99
[2020-08-24 12:25] LABS: C-Reactive Protein 26.9 mg/L (0-4)
[2020-08-24 12:37] LABS: Erythrocyte Sedimentation Rate 92 mm/hr (0-30)
[2020-08-24 13:32] VITALS: BP 137/81; PULSE 89; RESP 18
== END 2020-08-24 13:32 | disposition home or self-care (01) ==
LOC: INF 11:59
PROVIDERS: Visit Provider Nurse Practitioner
DX: L03.115 Cellulitis of right lower limb
CPT/HCPCS: 80048; 82550; 85025; 85651; 86140; 96365; J0878

== ENCOUNTER → 2020-08-25 11:55 | Outpatient (CLI) | payer OTHER, SELFPAY | PROVIDERS: PCP Family Medicine; Visit Provider Nurse Practitioner | DX: L03.115 Cellulitis of right lower limb (principal) | CPT/HCPCS: 96365; J0878 ==

== ENCOUNTER → 2020-08-26 11:55 | Outpatient (CLI) | payer OTHER, SELFPAY | PROVIDERS: PCP Family Medicine; Visit Provider Nurse Practitioner | DX: L03.115 Cellulitis of right lower limb (principal) | CPT/HCPCS: 96365; G0463; J0878 ==

== ENCOUNTER 2020-08-27 12:00 | Outpatient (CLI) | payer OTHER, SELFPAY ==
[2020-08-27 12:03] VITALS: BMI 35.4
[2020-08-27 12:16] VITALS: BP 101/84; PULSE 83; RESP 18; TEMP 36.8; O2SAT 98
[2020-08-27 12:44] LABS: Basophils % 0.1 % (0.1-2.0); Chloride 104 mmol/L (98-107); Eosinophils # 0.2 K/mm3 (0.0-0.4); Eosinophils % 2.3 % (0.1-12.0); Hematocrit 34.3 % (37.0-47.0); Lymphocytes # 1.6 K/mm3 (0.7-4.5); Lymphocytes % 24.7 % (10-50); Mean Corpuscular HGB Conc 32.1 g/dL (31.8-35.4); Mean Corpuscular Hemoglobin 28.3 pg (27.0-31.2); Mean Corpuscular Volume 88.1 fl (81-99); Mean Platelet Volume 7.4 fl (7.4-10.4); Monocytes # 0.3 K/mm3 (0.1-1.0); Monocytes % 5.1 % (1.7-9.3); Neutrophils # 4.4 K/mm3 (1.8-7.8); Neutrophils % 67.8 % (37.0-80.0); Platelet Count 342 K/mm3 (142-424); Potassium 3.7 mmoL/L (3.5-5.1); Red Blood Count 3.89 M/mm3 (4.20-5.40); Red Cell Distribution Width 14.5 % (11.5-17.5); Sodium 138 mmol/L (136-145); White Blood Count 6.5 K/mm3 (4.8-10.8)
[2020-08-27 12:47] LABS: Anion Gap 8.7 mEq/L (5-15); Blood Urea Nitrogen 13 mg/dl (7-17); Calcium 9.4 mg/dl (8.4-10.2); Carbon Dioxide 29 mmol/L (22.0-30.0); Creatine Kinase 40 U/L (30-135); Creatinine Clearance Estimated 107 mL/min (50-200); Estimated Glomerular Filt Rate 73 ml/min (>60); GFR (African American) 89 ML/MIN (>60); Glucose 109 mg/dl (74-100)
[2020-08-27 12:52] LABS: C-Reactive Protein 21.6 mg/L (0-4)
[2020-08-27 13:10] VITALS: BP 115/78; PULSE 82; RESP 16; TEMP 36.8; O2SAT 98
[2020-08-27 14:14] LABS: Erythrocyte Sedimentation Rate 74 mm/hr (0-30)
== END 2020-08-27 13:25 | disposition home or self-care (01) ==
LOC: INF 12:00
PROVIDERS: Visit Provider Nurse Practitioner
DX: L03.115 Cellulitis of right lower limb (principal)
CPT/HCPCS: 80048; 82550; 85025; 85651; 86140; 96365; J0878

== ENCOUNTER 2020-08-28 11:47 | Outpatient (CLI) | payer OTHER, SELFPAY ==
[2020-08-28 11:56] VITALS: BP 118/68; PULSE 93; RESP 18; TEMP 36.1; O2SAT 98
[2020-08-28 13:10] VITALS: BP 120/65; PULSE 78; RESP 18
== END 2020-08-28 13:10 | disposition home or self-care (01) ==
LOC: INF 12:00
PROVIDERS: Visit Provider Nurse Practitioner
DX: L03.115 Cellulitis of right lower limb (principal)
CPT/HCPCS: 96365; J0878

== ENCOUNTER 2020-08-29 12:10 | Outpatient (CLI) | payer OTHER, SELFPAY ==
[2020-08-29 12:25] VITALS: BP 149/98; PULSE 77; RESP 18; TEMP 35.9; O2SAT 97
[2020-08-29 13:40] VITALS: BP 119/45; PULSE 85; RESP 18; O2SAT 98
== END 2020-08-29 13:40 | disposition home or self-care (01) ==
LOC: INF 12:18
PROVIDERS: Visit Provider Nurse Practitioner
DX: L03.115 Cellulitis of right lower limb (principal)
CPT/HCPCS: 96365; J0878

== ENCOUNTER 2020-08-30 11:53 | Outpatient (CLI) | payer OTHER, SELFPAY ==
[2020-08-30 12:02] VITALS: BP 124/72; PULSE 88; RESP 18; TEMP 36.2; O2SAT 96
[2020-08-30 12:50] VITALS: BP 121/64; PULSE 86; RESP 18; O2SAT 98
== END 2020-08-30 13:05 | disposition home or self-care (01) ==
LOC: INF 11:53
PROVIDERS: Visit Provider Nurse Practitioner
DX: L03.115 Cellulitis of right lower limb (principal)
CPT/HCPCS: 96365; J0878

== ENCOUNTER 2020-08-31 12:15 | Outpatient (CLI) | payer OTHER, SELFPAY ==
[2020-08-31 12:35] VITALS: BP 145/81; PULSE 68; RESP 20; TEMP 36.9; O2SAT 95
[2020-08-31 13:40] VITALS: BP 140/74; PULSE 76; RESP 20; TEMP 36.9; O2SAT 95
== END 2020-08-31 13:40 | disposition home or self-care (01) ==
LOC: INF 15:05
PROVIDERS: Visit Provider Nurse Practitioner
DX: L03.115 Cellulitis of right lower limb (principal)
CPT/HCPCS: 96365; J0878

== ENCOUNTER 2020-09-01 11:50 | Outpatient (CLI) | payer OTHER, SELFPAY ==
[2020-09-01 12:00] VITALS: BP 131/83; PULSE 71; RESP 18; O2SAT 98
== END 2020-09-01 13:15 | disposition home or self-care (01) ==
LOC: INF 11:50
PROVIDERS: PCP Family Medicine; Visit Provider Nurse Practitioner
DX: L03.115 Cellulitis of right lower limb (principal)
CPT/HCPCS: 96365; J0878

== ENCOUNTER → 2020-09-02 12:52 | Outpatient (CLI) | payer OTHER, SELFPAY | PROVIDERS: PCP Family Medicine; Visit Provider Nurse Practitioner | DX: L03.115 Cellulitis of right lower limb (principal) | CPT/HCPCS: 96365; J0878 ==

== ENCOUNTER 2020-09-03 05:41 | Inpatient (IN) | payer OTHER, SELFPAY ==
[2020-09-03] VITALS (17 sets, daily range): BP systolic 112–137; BP diastolic 61–82; PULSE 96–111; RESP 16–26; TEMP 36.8–37.4; O2SAT 90–98; BMI 35.4
--- NOTE | 2020-09-03 05:33 | ECG_ITS ---
APPROVED REPORT Exam: Resting ECG HR:109 bpm ECG Measurements Heart Rate 109 AXES OK 122 P 7 QRSd 92 QRS -10 QT 298 T -1 QTc 401 Conclusion Sinus tachycardia Nonspecific ST and T wave abnormality Abnormal ECG Electronically signed by : Rich Dwyer, 09/05/2020 17:37:44
--- NOTE | 2020-09-03 05:51 | XR_ITS ---
PROCEDURE: XR CHEST PORTABLE CLINICAL HISTORY: SOA Shortness of air, chest pain COMPARISON: CR XR CHEST 2V from 05/10/2020 CR XR CHEST 2V from 07/27/2020 CR XR CHEST PORTABLE PICC PLAC from 08/22/[address] ANGIO CHEST from 09/03/2020 FINDINGS: The cardiomediastinal silhouette and pulmonary vascularity are within normal limits. Right hemidiaphragm is elevated. Atelectatic changes are present in lung base. PICC line present left upper extremity approach. Tip is in the region the SVC. No acute bony abnormalities. IMPRESSION: Right basilar atelectasis Dictated by: Thai Meléndez MD 09/03/2020 07:21 Thai Meléndez MD in [facility] 09/03/2020 07:21
--- NOTE | 2020-09-03 05:51 | CT_ITS ---
PROCEDURE: CT ANGIO CHEST CLINCIAL INDICATION: Pain w/ inspiration Recent surgery COMPARISON: No exams were available for comparison TECHNIQUE: IV Contrast: 70ML Isovue 370 Axial images obtained with sagittal and coronal reformats. All CT scans at the facility use one or more dose reduction, viz: automated exposure control, ma/kV adjustment per patient size (including targeted exams where dose is matched to indication, i.e. head), or iterative reconstruction technique. FINDINGS: HEART AND MEDIASTINAL STRUCTURES: Pulmonary embolus noted in the posterior segmental branch of the right lower lobe extending into subsegmental branches. Main pulmonary artery is normal in caliber. The RV/LV ratio however is greater than 1. No significant reflux of contrast into the inferior vena cava or hepatic veins. LUNGS AND PLEURAL SPACES: Small amount fluid is present in the right major fissure superiorly. There is atelectasis with consolidation in the right lower lobe posteriorly. There is a small right layering pleural effusion. A 1 cm indeterminate sub solid nodule is present in the right upper lobe posteriorly. The margins are slightly spiculated. Minimal atelectatic changes are present in the left lower lobe and lingula and right middle lobe. BONY STRUCTURES: Mild degenerative changes thoracic spine. UPPER ABDOMEN: Unremarkable. ADDITIONAL FINDINGS: Left upper extremity PICC line is present. The tip is in the region the SVC IMPRESSION: 1. Segmental pulmonary embolus in the posterior segmental branch of the right lower lobe with consolidation in the right lower lobe which may be due to infarction with atelectatic change versus pneumonia. Scattered atelectatic changes are present. RV/LV ratio is greater than 1 which may indicate right heart strain. Small right pleural effusion 2. Indeterminate 10 mm right upper lobe nodule. Three month CT follow-up or convalescent PET CT recommended for further evaluation. Dictated by: Thai Meléndez MD 09/03/2020 09:30 Thai Meléndez MD in [facility] 09/03/2020 09:30
[2020-09-03 06:14] LABS: Adenovirus,PCR Not Detected (NotDetected); Bordetella Pertussis Not Detected (NotDetected); Chlamydophila Pneumoniae, PCR Not Detected (NotDetected); Coronavirus 19, PCR Not Detected (NotDetected); Coronavirus 229E Not Detected (NotDetected); Coronavirus NL63 Not Detected (NotDetected); Coronavirus OC43 Not Detected (NotDetected); Coronovirus HKU1,PCR Not Detected (NotDetected); Human Metapneumovirus Not Detected (NotDetected); Influenza A, PCR Not Detected (NotDetected); Influenza AH1, 2009 Not Detected (NotDetected); Influenza AH1, PCR Not Detected (NotDetected); Influenza AH3,PCR Not Detected (NotDetected); Influenza B, PCR Not Detected (NotDetected); Mycoplasma Pneumoniae, PCR Not Detected (NotDetected); Parainfluenza 1, PCR Not Detected (NotDetected); Parainfluenza 2, PCR Not Detected (NotDetected); Parainfluenza 3, PCR Not Detected (NotDetected); Parainfluenza 4, PCR Not Detected (NotDetected); Respiratory Syncytial Virus Not Detected (NotDetected); Rhinovirus/Enterovirus Not Detected (NotDetected)
[2020-09-03 06:19] LABS: Basophils % 0.1 % (0.1-2.0); Eosinophils % 0.2 % (0.1-12.0); Hematocrit 34.6 % (37.0-47.0); Hemoglobin 11.2 g/dL (12.2-16.2); Lymphocytes # 0.8 K/mm3 (0.7-4.5); Lymphocytes % 4.7 % (10-50); Mean Corpuscular HGB Conc 32.5 g/dL (31.8-35.4); Mean Corpuscular Hemoglobin 28.2 pg (27.0-31.2); Mean Corpuscular Volume 86.8 fl (81-99); Mean Platelet Volume 7.4 fl (7.4-10.4); Monocytes # 0.5 K/mm3 (0.1-1.0); Platelet Count 371 K/mm3 (142-424); Red Blood Count 3.99 M/mm3 (4.20-5.40); Red Cell Distribution Width 14.7 % (11.5-17.5); White Blood Count 17.4 K/mm3 (4.8-10.8)
--- NOTE | 2020-09-03 06:25 | PC.NURSE ---
Pt's O2 dropped to 90% on room, she was placed on O2 @ 2 L/M
[2020-09-03 06:32] LABS: Chloride 101 mmol/L (98-107); Potassium 3.2 mmoL/L (3.5-5.1); Sodium 135 mmol/L (136-145)
[2020-09-03 06:34] LABS: Alanine Aminotransferase 26 U/L (12-78); Blood Urea Nitrogen 17 mg/dl (7-17); Creatinine Clearance Estimated 95 mL/min (50-200); Estimated Glomerular Filt Rate 64 ml/min (>60); GFR (African American) 77 ML/MIN (>60)
[2020-09-03 06:35] LABS: Albumin Level 3.9 g/dl (3.5-5.0); Albumin/Globulin Ratio 1.3 (1.1-1.8); Alkaline Phosphatase 89 U/L (38-126); Anion Gap 11.2 mEq/L (5-15); Aspartate Amino Transferase 25 U/L (14-36); Bilirubin,Total 0.5 mg/dl (0.2-1.3); Carbon Dioxide 26 mmol/L (22.0-30.0); Glucose 169 mg/dl (74-100); Total Protein,Serum 6.9 g/dl (6.3-8.2)
[2020-09-03 06:36] LABS: Lactic Acid 1.6 mmol/L (0.7-2.1); MANUAL DIFFERENTIAL MANUAL DIFFERENTIAL (MANUAL DIFF)
[2020-09-03 06:44] LABS: C-Reactive Protein 47.6 mg/L (0-4)
--- NOTE | 2020-09-03 07:18 | HMH.EDSOB ---
ED Disposition Clinical Impression: Pulmonary embolism Qualifiers: Pulmonary embolism type: unspecified Chronicity: acute Acute cor pulmonale presence: without acute cor pulmonale Qualified Code(s): I26.99 - Other pulmonary embolism without acute cor pulmonale Disposition: Admitted as Observation Condition on Discharge: Good Referrals: Arturo Estevez MD [Primary Care Provider] - - Critical Care Critical Care Time: No Attestation: On 09/03/20, the high probability of a clinically significant, sudden or life threatening deterioration of the following system(s) required my full and direct attention, intervention and personal management. The time I documented below is in addition to time spent performing reported procedures but includes the following listed in this critical care notation. Medical Decision Making - Medical Records Medical records reviewed: Yes: I reviewed the patient's medical records. - Yunier Inquiry Pt receiving controlled substance: No Vital Signs: 09/03/20 05:53 09/03/20 06:19 09/03/20 06:24 Temperature 98.7 F Temperature Source Oral Pulse Rate 106 H Pulse Rate [Right] 110 H Respiratory Rate 26 H 26 H Blood Pressure 114/78 Blood Pressure [Right Arm] 136/80 Blood Pressure Mean Blood Pressure Mean [Right Arm] 98 Blood Pressure Source [Right Arm] Automatic Cuff Blood Pressure Position Supine Blood Pressure Position [Right Arm] Supine 02 Sat by Pulse Oximetry 98 92 L 90 L Oxygen Delivery Method Room Air Room Air Room Air Oxygen Flow Rate (LPM) 09/03/20 06:26 09/03/20 06:30 Temperature Temperature Source Pulse Rate 108 H 108 H Pulse Rate [Right] Respiratory Rate 24 22 Blood Pressure 132/77 Blood Pressure [Right Arm] Blood Pressure Mean 88 Blood Pressure Mean [Right Arm] Blood Pressure Source [Right Arm] Blood Pressure Position Blood Pressure Position [Right Arm] 02 Sat by Pulse Oximetry 94 L 96 Oxygen Delivery Method Nasal Cannula Nasal Cannula Oxygen Flow Rate (LPM) 2 2 - Lab Data Lab results reviewed: Yes: I reviewed the patient's lab results. Lab Results 09/03/20 05:45: Troponin I < 0.01, Procalcitonin 0.152 09/03/20 05:46: WBC 17.4 H, RBC 3.99 L, Hgb 11.2 L, Hct 34.6 L, MCV 86.8, MCH 28.2, MCHC 32.5, RDW 14.7, Plt Count 371, MPV 7.4, Neut % (Auto) 92.0 H, Lymph % (Auto) 4.7 L, [place] % (Auto) 3.0, Eos % (Auto) 0.2, Baso % (Auto) 0.1, Neut # (Auto) 16.0 H, Lymph # (Auto) 0.8, [place] # (Auto) 0.5, Eos # (Auto) 0.0, Baso # (Auto) 0.0, Total Counted 100, Neutrophils % (Manual) 85 H, Lymphocytes % (Manual) 10, Monocytes % (Manual) 3, Eosinophils % (Manual) 2, Platelet Estimate Normal, RBC Morphology Normal, ESR 61 H 09/03/20 05:46: Sodium 135 L, Potassium 3.2 L, Chloride 101, Carbon Dioxide 26, Anion Gap 11.2, BUN 17, Creatinine 0.90, Estimated Creat Clear 95, Estimated GFR 64, Est GFR ( Amer) 77, Glucose 169 H, Calcium 9.0, Total Bilirubin 0.5, AST 25, ALT 26, Alkaline Phosphatase 89, C-Reactive Protein 47.6 H, Total Protein 6.9, Albumin 3.9, Globulin 3.0, Albumin/Globulin Ratio 1.3 09/03/20 05:46: Lactate 1.6 Result diagrams: 09/03/20 05:46 09/03/20 05:46 Orders (Tests/Meds): ED MEDICATIONS Discontinued Medications Generic Name Dose Route Start Last Admin Trade Name Freq PRN Reason Stop Dose Admin Sodium Chloride 1,000 mls @ 999 mls/hr 09/03/20 06:00 09/03/20 05:55 Sod Chlor 0.9% 1000ml Bag IV 09/03/20 07:00 999 mls/hr .Q1H1M DEV Administration Iopamidol 70 ml 09/03/20 06:57 09/03/20 07:02 Iopamidol-370 (76%);100ml Bottle IV 09/03/20 06:58 70 ml ONCE ONE Administration Iopamidol 70 ml 09/03/20 07:08 Iopamidol-370 (76%);100ml Bottle IV 09/03/20 07:09 ONCE ONE Ketorolac Tromethamine 30 mg 09/03/20 05:49 09/03/20 05:55 Ketorolac 30mg/Ml Vial IV 09/03/20 05:50 30 mg ONCE ONE Administration Methylprednisolone Sodium Succinate 125 mg 09/03/20 05:49 09/03/20 05:55 Methylp
[2020-09-03 07:23] LABS: Procalcitonin 0.152 ng/mL (0.0-2.0)
[2020-09-03 07:24] LABS: Erythrocyte Sedimentation Rate 61 mm/hr (0-30)
[2020-09-03 07:25] LABS: Troponin I < 0.01 ng/ml (0.00-0.034)
[2020-09-03 07:27] LABS: Eosinophils % 2 % (0-3); Lymphocytes % 10 % (10-50); Monocytes % 3 % (2-9); Neutrophils % 85 % (42-76); Platelet Estimate Normal; RBC Morphology Normal; Total Cells Counted 100
--- NOTE | 2020-09-03 07:27 | PC.NURSE ---
DA URIARTE spoke with Dr. Estevez at this time
--- NOTE | 2020-09-03 07:32 | PC.NURSE ---
DA URIARTE speaking with Dr. Billy at this time
--- NOTE | 2020-09-03 07:33 | PC.NURSE ---
notified care management of admission
--- NOTE | 2020-09-03 07:38 | PC.NURSE ---
notified [facility] lab of echo order, spoke with Anastasiia-states she will let staff know they are in with pts at this time
--- NOTE | 2020-09-03 08:02 | CA_ITS ---
APPROVED REPORT EXAM: Comprehensive 2D, Doppler, and color-flow Echocardiogram Garden Consultant: WADE Bryson, RVS Ht: 5 ft 3 in Wt: 200lbs BSA: 1.93 BP: 132/77 mmHg Indications: Pulmonary Embolism, SoA,HLD 2D Dimensions IVSd 0.97 cm F: 0.6-1.0 LVEF (Visual) 56.20 % PWd 0.70 cm F: 0.6 - 1.0 LA Volume 26.90 mL LVDd 4.26 cm F: 3.9 - 5.3 LA Volume Index 13.93 mL/m2 (M/F) 16-34 LVDs 3.02 cm F: 2.2 - 3.5 Left Atrium 2.34 cm F: 2.7 - 3.8 LVOT 1.79 cm (M/F) 1.5-2.5 M-Mode Dimensions RVDd 2.09 cm (0.9-2.6) LA Diam 3.16 cm (1.9-4.0) LVDd 4.51 cm (3.5-5.7) Ao Diam 3.26 cm (2.0-3.7) LVDs 3.06 cm (3.5-5.7) IVSd 0.98 cm (0.6-1.1) PWd 1.04 cm (0.6-1.1) EF (Teich) 60.50% EPSs 0.24 cm FS 32.20% EDV (Teich) 92.90 mL TAPSE 1.91 (<1.7) ESV (Teich) 36.70 mL LV Diastology E Decel Time 217.00 (160-240 msec) E/A Ratio 1.2 MED E' 8.40 (< 7 cm/sec) MED A' 15.00 cm/s E'/MED E' Ratio 11.60 (>14) LAT E' 12.60 (<10 cm/sec) LAT A' 14.20 cm/s E/LAT E' Ratio 7.73 (>14) Pulm Vein s 49.00 cm/sec Pulm Vein d 33.00 cm/sec Ar-A Duration 110.00 msec Aortic Valve LVOT Max 137.00 (70-110 cm/s) LVOT VTI 25.21 cm AoV Peak Titi. 151.00 (50-130 cm/s) AO Peak GR. 9.20 mmHg AO Mean GR. 4.60 (<5 mmHg) AO VTI 27.43 (18-25 cm) VIJAY (VTI) 2.31 (2.5-4.5 cm2) Mitral Valve MV E Max Titi. 97.00 (40-130 cm/s) MV A Velocity 78.00 (40-130 cm/s) E/A Ratio 1.25 MV Decel. Time 217.00 (160-240 ms) MV PHT 63.00 ms Pulmonary Valve PV Peak Velocity 101.00 (50-150 cm/s) Tricuspid Valve TR P. Velocity 225.00 cm/s RAP Estimate 10.00 mmHg RVSP 30.30 mmHg Left Ventricle Left atrium normal size, left ventricle is normal size, there is no concentric left ventricular hypertrophy, visually estimated ejection fraction 55% with no regional wall motion abnormality, diastolic parameters are inconclusive. Right Ventricle Right atrium and right ventricle are normal size and contractility. Aortic Valve Aortic valve is grossly normal, there is no aortic stenosis or aortic insufficiency. Mitral Valve Mitral valve is grossly normal, there is trace mitral regurgitation. Tricuspid Valve Tricuspid grossly normal, there is trace tricuspid regurgitation, tricuspid regurgitation jet velocity is inadequate for calculation of the right ventricular systolic pressure. Pulmonic Valve Pulmonic valve is poorly visualized. Great Vessels Aortic root is normal size. Pericardium No significant pericardial effusion noted. Conclusion 1. Normal left ventricular size, preserved left ventricular systolic function, visually estimated ejection fraction 55% with no regional wall motion abnormality, diastolic parameters are inconclusive. 2. Trace mitral and tricuspid regurgitation. 3. No significant pericardial effusion noted. Electronically signed by : Davide Ocampo, 09/03/2020 21:12:19
--- NOTE | 2020-09-03 08:29 | PC.NURSE ---
report called to Ronaldo Law RN at this time
--- NOTE | 2020-09-03 09:50 | HMH.HP ---
*Admission Date: 09/03/20 <Maria Luisa Land 09/03/20 10:07> *Chief complaint: shortness of breath <Maria Luisa Land 09/03/20 10:07> *History of present illness: Ms. Valladares is a 60-year-old female with a history of hypertension, depression, and GERD. She had at triple arthrodesis bilateral ankles and had extensive surgery on the right foot by Dr. Cheek. She had additional surgery with wound debridement for wound dehiscence, cellulitis of the right foot, and MRSA. She has been on daptomycin for 2 weeks via PICC line. Patient states that yesterday she developed a fever and took Motrin with resolution of the fever. She then awakened about 2 AM with severe right chest pain and shortness of breath. Thus she presented to the emergency room. With work-up in the emergency room temperature was 98.7. O2 sats ranged from 90-98. White blood cell count was 17,400 with a hemoglobin of 11.2 and hematocrit of 34.6. She received a liter of IV fluids, Kertolac IV, Solu-Medrol 125, and Lovenox. CTA of the chest revealed segmental pulmonary embolus in the posterior segment branch of the right lower lobe with consolidation in the right lower lobe which may be due to infarction with atelectatic change versus pneumonia. Patient was then admitted to acute care for ongoing treatment and evaluation. At the time of this exam patient is not short of breath and she denies chest pain. <Maria Luisa Land 09/03/20 12:37> [facility] History Medical History: Reports:: Depression, Gastroesophageal Reflux Disease(GERD), Hyperlipidemia, Hypertension, Palpitations Denies:: Cancer, Diabetes Mellitus Type 1, Diabetes Mellitus Type 2, Internal Pacemaker, Lung Disease, MRSA, Seizures Comment Only: Congestive Heart Failure (diastolic dysfunction) <ShandaMaria Luisa 09/03/20 12:37> *Have you ever received a pneumonia vaccine?: No <LandMaria Luisa Demetrius 09/03/20 10:07> *Have you received a flu vaccine this season?: Yes <LandMaria Luisa 09/03/20 10:07> Other Medical History: Reports: Arthritis (OA). Denies: Blood Transfusion Reaction <ShandaMaria Luisa 09/03/20 10:07> Laterality Cases: Bilateral: Other <Maria Luisa Land 09/03/20 10:07> Other Surgeries: Yes: Colonoscopy, Hernia Repair. No: Pacemaker <Maria Luisa Land 09/03/20 10:07> Amputation: No <Maria Luisa Land 09/03/20 10:07> Fractures: Yes (RIGHT AND LEFT FOOT, FIBULAR FX) <ShandaMaria Luisa 09/03/20 10:07> Comment: Patient had extensive surgery on the right foot/ankle with right foot incision and debridement for wound dehiscence and cellulitis on 08/22/2020. <Maria Luisa Land 09/03/20 12:37> - *Social History Smoking Status: Former smoker <Maria Luisa Land 09/03/20 10:07> #Yrs smoked (if former smoker): 8 <Maria Luisa Land 09/03/20 10:07> Alcohol Intake: never <Maria Luisa Land 09/03/20 10:07> Alcohol Intake Frequency:: holidays/special occasions only <Maria Luisa Land 09/03/20 10:07> Substance Use Type: denies use <Maria Luisa Land 09/03/20 10:07> *Occupational Status:: employed <Maria Luisa Land 09/03/20 10:07> Housing: house <Maria Luisa Land 09/03/20 10:07> Household Members: spouse <Maria Luisa Land 09/03/20 10:07> *Travel in the last 8 weeks: None <ShandaMaria Luisa 09/03/20 10:07> - Psychiatric History Pschychiatric History:: Reports:: Depression <ShandaMaria Luisa 09/03/20 10:07> Family Hx:: Cancer, Diabetes, Heart Attack, Hyperlipidemia, Hypertension <LandMaria Luisa 09/03/20 10:07> Review of Systems - Constitutional Reports fever(s) <ShandaMaria Luisa 09/03/20 12:37> - Eyes Denies change in vision <Land,Maria Luisa 09/03/20 12:37> - ENT Denies ear pain, Denies sore throat <Land,Maria Luisa 09/03/20 12:37> - *Cardiovascular Reports chest pain (Right lateral stabbing chest pain), Reports shortness of breath <Maria Luisa Land - 09/03/20 12:37> - *Respiratory Reports cough (Minimal), Reports shortness of breath, Denies chest congestion <Maria Luisa Land 09/03/20 12:37> - *Gastrointestinal Denies abdominal pain
--- NOTE | 2020-09-03 10:25 | HMH.PHAVTE ---
[facility] VTE Monitoring - Patient Demographics Admission date: 09/03/20 Report Date: 09/03/20 Time: 10:25 Allergies/Adverse Reactions: Patient Allergies avocado [AVOCADO] Allergy (Unknown, Verified 08/29/20 11:13) Height: 1.6 m Weight: 90.718 kg Patient Problems: Current Active Problems Pulmonary embolism (Acute) - VTE Risk Labs: VTE Related Lab Results Hgb 11.2 g/dL (12.2-16.2) L 09/03/20 05:46 Hct 34.6 % (37.0-47.0) L 09/03/20 05:46 Plt Count 371 K/mm3 (142-424) 09/03/20 05:46 BUN 17 mg/dl (7-17) 09/03/20 05:46 Creatinine 0.90 mg/dl (0.52-1.04) 09/03/20 05:46 Estimated Creat Clear 95 mL/min (50-200) 09/03/20 05:46 VTE Score: 8 VTE Risk Level: Moderate Risk - Prophylaxis VTE Prophylaxis Ordered?: Yes Types of VTE Prophylaxis: TEDS Knee High Location of Applied Device: Bilateral Lower Extremeties
[2020-09-03 10:31] LABS: Troponin I < 0.01 ng/ml (0.00-0.034)
--- NOTE | 2020-09-03 10:56 | CA_ITS ---
APPROVED REPORT Bilateral Lower Extremity Venous Study for Brooch And Bracelet Maker: CT Indications PE Risk Factors Immobility Obesity Multiple foot surgeries since May. Medications Aspirin Vein Imaging CFV (R): compressive, spontaneous, phasic, augmentation SFJ (R): compressive, spontaneous, phasic, augmentation FEM (R): compressive, spontaneous, phasic, augmentation POP (R): compressive, spontaneous, phasic, augmentation DFV (R): compressive, spontaneous, phasic, augmentation PTV (R): compressive, spontaneous, phasic, augmentation GSV (R): compressive, spontaneous, phasic, augmentation SSV (R): compressive, spontaneous, phasic, augmentation Peroneals (R):compressive, spontaneous, phasic, augmentation GAS (R): compressive, spontaneous, phasic, augmentation CFV (L): compressive, spontaneous, phasic, augmentation SFJ (L): compressive, spontaneous, phasic, augmentation FEM (L): compressive, spontaneous, phasic, augmentation POP (L): compressive, spontaneous, phasic, augmentation DFV (L): compressive, spontaneous, phasic, augmentation PTV (L): compressive, spontaneous, phasic, augmentation GSV (L): compressive, spontaneous, phasic, augmentation SSV (L): compressive, spontaneous, phasic, augmentation Peroneals (L):compressive, spontaneous, phasic, augmentation GAS (L): compressive, spontaneous, phasic, augmentation Findings RLE and LLE negative for DVT/SVT. Vessels fully compressible. PTs and DPs difficult to image, small vessles. Conclusion RLE and LLE negative for DVT/SVT. Vessels fully compressible. PTs and DPs difficult to image, small vessles. Electronically signed by : Thai Meléndez MD 09/03/2020 18:30:34
--- NOTE | 2020-09-03 10:58 | CA_ITS ---
APPROVED REPORT Left Upper Extremity Venous Study for DVT. Manager Area: Yadi Garcia, ELE[place] Indications Pulmonary Embolism Risk Factors Obesity Post OP Multiple foot surgeries since May. Pt has a PICC line. Vein Imaging IJV (L): Normal phasic flow is seen. Normal flow, augmentation and compression is seen. No evidence of Deep Vein Thrombosis. No abnormalities are demonstrated. SCV (L): Normal phasic flow is seen. Normal flow, augmentation and compression is seen. No evidence of Deep Vein Thrombosis. No abnormalities are demonstrated. Axillary (L): Normal phasic flow is seen. Normal flow, augmentation and compression is seen. No evidence of Deep Vein Thrombosis. No abnormalities are demonstrated. Brachial (L): Normal phasic flow is seen. Normal flow, augmentation and compression is seen. No evidence of Deep Vein Thrombosis. No abnormalities are demonstrated. Basilic (L): Normal phasic flow is seen. Normal flow, augmentation and compression is seen. No evidence of Deep Vein Thrombosis. No abnormalities are demonstrated. Cephalic (L): Normal phasic flow is seen. Normal flow, augmentation and compression is seen. No evidence of Deep Vein Thrombosis. No abnormalities are demonstrated. Radial (L): Normal phasic flow is seen. Normal flow, augmentation and compression is seen. No evidence of Deep Vein Thrombosis. No abnormalities are demonstrated. Ulnar (L): Normal phasic flow is seen. Normal flow, augmentation and compression is seen. No evidence of Deep Vein Thrombosis. No abnormalities are demonstrated. Findings LUE negative for DVT/SVT. Vessels compressible PICC line visualized. Conclusion LUE negative for DVT/SVT. Vessels compressible PICC line visualized. Electronically signed by : Thai Meléndez MD 09/03/2020 18:28:50
--- NOTE | 2020-09-03 17:11 | PC.NURSE ---
SHE IS AOX4, ABLE TO MAKE NEEDS KNOWN TO STAFF, SHE HAS REQUIRED 2LNC FOR O2 SUPPORT T/O SHIFT v, SHE HAS NOT C/O N/V/D AND HAS TOLERATED DIET WELL, BOWEL SOUNDS ACTIVEX4, ABD SOFT AND ROUND ON PALPATION, DSG TO RLE CHANGED PER PODIATRY TODAY, PICC LINE DSG TO LUE CHANGED BY THIS RN, SHE HAS NOT C/O PAIN THIS SHIFT, NO NEEDS AT THIS TIME. WILL CONTINUE TO MONITOR.
--- NOTE | 2020-09-03 18:30 | HMH.ORTHOCON ---
*Admission Date: 09/03/20 *Reason for consult:: Wound Vac dressing change *History of present illness: Ms. Valladares is a 60-year-old female with a history of hypertension, depression, and GERD. She had at triple arthrodesis bilateral ankles and had extensive surgery on the right foot by Dr. Cheek. She had additional surgery with wound debridement for wound dehiscence, cellulitis of the right foot, and MRSA. She has been on daptomycin for 2 weeks via PICC line. Patient states that yesterday she developed a fever and took Motrin with resolution of the fever. She then awakened about 2 AM with severe right chest pain and shortness of breath. Thus she presented to the emergency room. With work-up in the emergency room temperature was 98.7. O2 sats ranged from 90-98. White blood cell count was 17,400 with a hemoglobin of 11.2 and hematocrit of 34.6. She received a liter of IV fluids, Kertolac IV, Solu-Medrol 125, and Lovenox. CTA of the chest revealed segmental pulmonary embolus in the posterior segment branch of the right lower lobe with consolidation in the right lower lobe which may be due to infarction with atelectatic change versus pneumonia. Patient was then admitted to acute care for ongoing treatment and evaluation. *Podiatry consult was placed for us to change out the patient's Wound VAC that was placed on her 08/29/20 in our office. Patient is doing very well this evening, At the time of this exam patient is not short of breath and she denies chest pain. [facility] History I have reviewed the patient's past medical history: Yes Medical History: Reports:: Depression, Gastroesophageal Reflux Disease(GERD), Hyperlipidemia, Hypertension, Palpitations Denies:: Cancer, Diabetes Mellitus Type 1, Diabetes Mellitus Type 2, Internal Pacemaker, Lung Disease, MRSA, Seizures Comment Only: Congestive Heart Failure (diastolic dysfunction) *Have you ever received a pneumonia vaccine?: Yes *Have you received a flu vaccine this season?: Yes Other Medical History: Reports: Arthritis (OA). Denies: Blood Transfusion Reaction Laterality Cases: Bilateral: Other Other Surgeries: Yes: Colonoscopy, Hernia Repair. No: Pacemaker Amputation: No Fractures: Yes (RIGHT AND LEFT FOOT, FIBULAR FX) - *Social History Last grade of school completed: Advanced degree Smoking Status: Former smoker #Yrs smoked (if former smoker): 8 Alcohol Intake: never Alcohol Intake Frequency:: holidays/special occasions only Substance Use Type: denies use *Occupational Status:: employed Housing: house Household Members: spouse *Travel in the last 8 weeks: None - Psychiatric History Pschychiatric History:: Reports:: Depression Family Hx:: Cancer, Diabetes, Heart Attack, Hyperlipidemia, Hypertension Review of Systems - Constitutional Denies malaise - Eyes Denies change in vision - ENT Denies abnormal hearing - *Cardiovascular Denies chest pain, Denies shortness of breath - *Respiratory Denies cough, Denies shortness of breath - *Gastrointestinal Denies abdominal pain - *Musculoskeletal Reports other (NWB to right lower extremity) - Integumentary/Breasts Reports wounds - *Neurologic Denies localized weakness, Denies headache(s), Denies seizure-like activity - Psychiatric Denies anxiety, Denies confusion - Endocrine Denies cold intolerance, Denies excessive sweating - Hematologic/Lymphatic Denies easy bleeding Meds Home Medications Medication Instructions Recorded Confirmed Type venlafaxine 150 mg 150 mg PO DAILY cap 07/13/17 09/03/20 History capsule,extended release 24 hr Multivitamin [Multivitamins] 1 each PO DAILY 08/19/17 09/03/20 History ascorbate calcium (vitamin C) 500 500 mg PO DAILY 04/24/20 09/03/20 History mg tablet cholecalciferol (vitamin D3) 50 50 mcg PO DAILY 04/24/20 09/03/20 History mcg (2,000 unit) capsule ibuprofen 200 mg capsule 200 mg PO Q6H PRN 04/24/20 09/03/20 History Cholecalciferol (Vitamin D3) 1,250 mcg PO WEAnna
--- NOTE | 2020-09-04 03:10 | PC.NURSE ---
A&OX4. PT TOLERATING 2LNC T/O SHIFT, O2 SAT IN UPPER 90S. AT BEGINNING OF SHIFT, PT STATED THAT SHE WAS STILL HAVING SLIGHT SOB, BUT THIS HAS IMPROVED T/O SHIFT. PT HAS C/O PAIN IN HER R SIDE RADIATING TO HER BACK X2 THIS SHIFT, TX WITH PRN NORCO. PT RESTING INTERMITTENTLY. PT USING SCOOTER TO GET TO BR. DRESSING TO R ANKLE CDI-NO C/O PAIN HERE. NO OTHER C/O THUS FAR, VSS WILL CONTINUE TO MONITOR.
[2020-09-04 04:00] VITALS: BP 123/62; PULSE 79; RESP 16; TEMP 36.8; O2SAT 97
--- NOTE | 2020-09-04 04:46 | PC.NURSE ---
WEANING O2 AT THIS TIME. WILL CONTINUE TO MONITOR 02 SAT. PT LAST O2 SAT 97% ON 2LNC.
--- NOTE | 2020-09-04 04:54 | PC.NURSE ---
PT 92% ON 1/2LNC AT THIS TIME.
[2020-09-04 05:11] VITALS: BMI 34.5
[2020-09-04 06:13] LABS: Basophils % 0.1 % (0.1-2.0); Eosinophils % 0.3 % (0.1-12.0); Hemoglobin 9.8 g/dL (12.2-16.2); Lymphocytes # 1.9 K/mm3 (0.7-4.5); Lymphocytes % 14.1 % (10-50); Mean Corpuscular HGB Conc 31.7 g/dL (31.8-35.4); Mean Corpuscular Hemoglobin 28.2 pg (27.0-31.2); Mean Platelet Volume 7.4 fl (7.4-10.4); Monocytes # 0.6 K/mm3 (0.1-1.0); Monocytes % 4.5 % (1.7-9.3); Neutrophils # 11.1 K/mm3 (1.8-7.8); Platelet Count 325 K/mm3 (142-424); Red Blood Count 3.48 M/mm3 (4.20-5.40); White Blood Count 13.7 K/mm3 (4.8-10.8)
[2020-09-04 06:27] LABS: Chloride 105 mmol/L (98-107); Potassium 3.2 mmoL/L (3.5-5.1); Sodium 137 mmol/L (136-145)
[2020-09-04 06:30] LABS: Anion Gap 7.2 mEq/L (5-15); Blood Urea Nitrogen 13 mg/dl (7-17); Carbon Dioxide 28 mmol/L (22.0-30.0); Creatinine Clearance Estimated 104 mL/min (50-200); Estimated Glomerular Filt Rate 73 ml/min (>60); GFR (African American) 89 ML/MIN (>60)
[2020-09-04 06:36] LABS: Calcium 8.6 mg/dl (8.4-10.2); Glucose 112 mg/dl (74-100)
--- NOTE | 2020-09-04 07:00 | XR_ITS ---
PROCEDURE: XR ANKLE RT MIN 3V CLINICAL INDICATION: Wound Pain and swelling COMPARISON: CR XR ANKLE RT 2V from 06/13/2020 CR XR ANKLE RT 2V from 06/13/2020 CR XR FOOT RT MIN 3V from 08/01/2020 CR XR ANKLE RT MIN 3V from 08/01/2020 CR XR ANKLE RT MIN 3V from 08/22/2020 CR XR FOOT RT MIN 3V from 09/04/2020 FINDINGS: Prior fusion of the talocalcaneal, calcaneocuboid, talonavicular and navicular cuneiform. No change in the metallic hardware. There is diffuse osteopenia the tarsal bones. No acute fracture or dislocation is evident. An anchor screws present within the lateral malleolus. There remains good alignment. The posterior limb of the staple at the calcaneal cuboid region is along the anterior aspect of the calcaneus possibly within the joint space. No obvious bony destructive process. Lucency remains within the lateral aspect of the talar dome. There is also lucency within the distal fibula which could be a prior screw track. Other findings:None. IMPRESSION: Overall no change in the tarsal fusion with diffuse osteopenia Dictated by: Thai Meléndez MD 09/04/2020 07:51 Thai Meléndez MD in [place] 09/04/2020 07:51
[2020-09-04 08:00] VITALS: BP 121/79; PULSE 85; RESP 18; TEMP 36.7; O2SAT 95
--- NOTE | 2020-09-04 08:09 | HMH.ORTHPN ---
Subjective Date: 09/04/20 <Melia Kemp - 09/04/20 08:23> Time: 08:09 <Melia Kemp - 09/04/20 08:23> Principal diagnosis: R foot wound, Chronic Osteomyeltis <Melia Kemp - 09/04/20 08:23> Interval history: Patient resting in bed this morning still c/o some chest discomfort from her PE. Patient is on room air and does not appear to be having any distress with breathing. Patient denies pain in her right foot. Her dressings to right foot will be changed this morning and site check. Dr. Cheek will be discussing bone culture results this morning as well. <JustoMelia L - 09/04/20 08:23> PN: Obj Ex Vital signs: Temp Pulse Resp BP Pulse Ox 98.0 F 85 18 121/79 95 09/04/20 08:00 09/04/20 08:00 09/04/20 08:00 09/04/20 08:00 09/04/20 08:00 <Ursula Cheek - 09/04/20 12:38> Temp Pulse Resp BP Pulse Ox 98.3 F 79 16 123/62 97 09/04/20 04:00 09/04/20 04:00 09/04/20 04:00 09/04/20 04:00 09/04/20 04:00 <DanyedenMelia Dionicio - 09/04/20 08:23> - Constitutional no acute distress <GalenlaurieMelia Dionicio - 09/04/20 08:23> - Routine HEENT Exam Head: Present: normocephalic <DanyedenMelia Dionicio - 09/04/20 08:23> Eye: Present: PERRL <GalenlaurieMelia Dionicio - 09/04/20 08:23> ENT: Present: mucous membranes moist <JustoMelia L - 09/04/20 08:23> - Routine Neck Exam Present: full ROM, trachea midline <Melia Kemp - 09/04/20 08:23> - Routine Chest/Breast/Axilla Exam Chest wall: Present: tenderness (Patient c/o discomfort to right lower chest wall r/t PE) <Melia Kemp 09/04/20 08:23> - Routine Respiratory Exam Absent: respiratory distress (Patient currently on room air she states low to mid 90's on sats.) <Melia Kemp 09/04/20 08:23> - Routine Cardiovascular Exam Present: RRR <Melia Kemp 09/04/20 08:23> - Routine Abdominal Exam Present: obese <Melia Kemp 09/04/20 08:23> - Routine Extremities Exam Present: edema (Mild postoperative right pedal edema. ), pulses intact, normal capillary refill <Melia Kemp 09/04/20 08:23> - Detailed Lower Extremity Exam Ankle image: 1 - Right lateral foot 08/22/20,, S/P Right deep ankle wound debridement (Versajet debridement, Right foot partial delayed primary closure, Right foot percutaneous bone biospy x4, Right foot irrigation and debridement. Site measures: 10.0 x1.0 x0cm. No drainage noted, dressing applied. Vaseline gauze,Betadine gauze, dry gauze, kerlix, shavon wrap. <Melia Kemp 09/04/20 08:23> - Routine Back/Spine/Pelvis Exam Back/Spine: Present: full ROM <Melia Kemp 09/04/20 08:23> - Routine Skin Exam Present: dry, wounds (right lateral foot wound, sutures in place, no drainage.) <Melia Kemp 09/04/20 08:23> - Routine Neurological Exam Present: oriented X3, normal tone, vision grossly intact, hearing grossly intact, normal speech <Melia Kemp 09/04/20 08:23> - Routine Psychiatric Exam Present: normal affect <Melia Kemp 09/04/20 08:23> Progress Note: A&P (1) Depression Status: Acute (2) Pulmonary embolism Status: Acute (3) Chest pain Status: Acute (4) HTN (hypertension) Status: Chronic (5) Chronic osteomyelitis Status: Chronic (6) Neuritis of right foot Status: Chronic (7) Status post foot surgery Status: Chronic (8) Osteoarthritis of both ankles and feet Status: Chronic (9) Postoperative wound dehiscence Status: Acute (10) Postoperative pain Status: Acute (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ute (13) Paresthesia and pain of right extremity Status: Acute (14) Postoperative edema Status: Acute <Melia Kemp - 09/04/20 08:24> (1) Depression Status: Acute (2) Pulmonary embolism Status: Acute (3) Chest pain Status: Acute (4) HTN (hypert
--- NOTE | 2020-09-04 08:41 | HMH.ACPN2 ---
<Maria Luisa Land - Last Filed: 09/04/20 08:41> Internal Medicine - PN: Subj *Date: 09/04/20 *Time: 08:41 Interval history: Patient having right sided chest pain this a.m. Increased discomfort with inspiration. Patient does have periodic nonproductive cough. Pain was relieved while in the room after p.o. pain medicine. She states she is eating without difficulty. She is periodically short of breath. She ambulates with her Scooter. Dressing change on the right foot by Dr. Cheek while in the room. Wound looks clean and healing with sutures in place. Some edema of the right foot. Plan is for patient to have bedside removal of pins and plates. This was presented to patient and . Ultrasound of bilateral lower extremities and left upper arm were both negative for DVT.CBC this a.m. shows a decrease in her white blood cell count at 13,700. Hemoglobin is 9.8 with a hematocrit of 31. Exam Vital signs and Labs for Last 24 Hours: Temp Pulse Resp BP Pulse Ox 98.3 F 79 16 123/62 97 09/04/20 04:00 09/04/20 04:00 09/04/20 04:00 09/04/20 04:00 09/04/20 04:00 Laboratory Results - last 24 hr 09/03/20 09:50: Troponin I < 0.01 09/04/20 05:55: WBC 13.7 H, RBC 3.48 L, Hgb 9.8 L, Hct 31.0 L, MCV 89.0, MCH 28.2, MCHC 31.7 L, RDW 15.0, Plt Count 325, MPV 7.4, Neut % (Auto) 81.0 H, Lymph % (Auto) 14.1, [place] % (Auto) 4.5, Eos % (Auto) 0.3, Baso % (Auto) 0.1, Neut # (Auto) 11.1 H, Lymph # (Auto) 1.9, [place] # (Auto) 0.6, Eos # (Auto) 0.0, Baso # (Auto) 0.0 09/04/20 05:55: Sodium 137, Potassium 3.2 L, Chloride 105, Carbon Dioxide 28, Anion Gap 7.2, BUN 13, Creatinine 0.80, Estimated Creat Clear 104, Estimated GFR 73, Est GFR ( Amer) 89, Glucose 112 H, Calcium 8.6 I & O for Last 24 hours: Intake & Output 09/01/20 09/02/20 09/03/20 09/04/20 11:59 11:59 11:59 11:59 Intake Total 1121 / 1121 Balance 112 / 1121 Weight 199 lb 15.983 oz 195 lb - Constitutional no acute distress Comments: Comfort after p.o. pain medicine. - *Routine Respiratory Exam Present: decreased breath sounds (On the right with crackles) Comments: Minimal breath sounds in the right base - *Routine Cardiovascular Exam Present: RRR - *Routine Abdominal Exam Present: soft, normoactive bowel sounds. Absent: tenderness - *Routine Extremities Exam Present: edema (Right foot). Absent: calf tenderness Comments: No edema of the left leg. Left upper arm at site of PICC line without surrounding edema, erythema - *Routine Neurological Exam Present: alert, oriented X3 Assessment and Plan (1) Depression Status: Acute Category: Medical Code(s): F32.9 - Major depressive disorder, single episode, unspecified (2) Pulmonary embolism Status: Acute Qualifiers: Pulmonary embolism type: unspecified Chronicity: acute Acute cor pulmonale presence: without acute cor pulmonale Qualified Code(s): I26.99 - Other pulmonary embolism without acute cor pulmonale Category: Medical Code(s): I26.99 - Other pulmonary embolism without acute cor pulmonale (3) Chest pain Status: Acute Qualifiers: Chest pain type: other chest pain Qualified Code(s): R07.89 - Other chest pain; R07.8 - Other chest pain Category: Medical Code(s): R07.9 - Chest pain, unspecified (4) HTN (hypertension) Status: Chronic Qualifiers: Hypertension type: essential hypertension Qualified Code(s): I10 - Essential (primary) hypertension Category: Medical Code(s): I10 - Essential (primary) hypertension (5) Chronic osteomyelitis Status: Chronic Category: Medical Code(s): M86.60 - Other chronic osteomyelitis, unspecified site (6) Neuritis of right foot Status: Chronic Category: Medical Code(s): G57.91 - Unspecified mononeuropathy of right lower limb (7) Status post foot surgery Status: Chronic Category: Surgical Code(s): Z98.890 - Other specified postprocedural states (8) Osteoarthritis of
[2020-09-04 16:00] VITALS: BP 131/78; PULSE 85; RESP 19; TEMP 36.7; O2SAT 94
--- NOTE | 2020-09-04 16:33 | PC.NURSE ---
Pt has c/o lower back pain x2 this shift and was medicated per MAR w/ favorable results. Lungs sounds CTA. Pt has been in the low 90%'s between 0.5-1 L NC. Pt signed consent for bedside procedure w/ MD Cheek tomorrow AM and it is in her chart. PICC in [facility] remains patent. No other acute changes or complaints at this time.
[2020-09-04 17:06] LABS: Anti-Cardiolipin Antibody IgG <9 GPL U/mL (0-14)
[2020-09-04 20:00] VITALS: BP 131/70; PULSE 90; RESP 24; TEMP 37.1; O2SAT 97
[2020-09-04 20:31] VITALS: O2SAT 97
--- NOTE | 2020-09-04 20:35 | PC.NURSE ---
RA SATS WERE 87% PT PLACED BACK ON 2L NC
[2020-09-04 20:47] VITALS: RESP 18
[2020-09-05] VITALS (20 sets, daily range): BP systolic 113–149; BP diastolic 65–99; PULSE 84–95; RESP 14–20; TEMP 36.3–42.7; O2SAT 91–99
--- NOTE | 2020-09-05 04:23 | PC.NURSE ---
Pt resting comfortably with eyes closed and in no acute distress. Plan for Sx on pts RLE to repair hardware. Patient requested pain Rx X 1 this shift. Pt was admitted for PE, no S/S of respiratory distress this shift. Dressing for PICC line changed. Will continue to monitor for any acute changes.
[2020-09-05 05:07] LABS: Anti-Thrombin III Antigen 87 % (72-124); Factor V Activity 81 % (70-150); Protein C Functional 130 % (73-180); Protein S Functional 80 % (63-140)
--- NOTE | 2020-09-05 05:13 | PC.NURSE ---
None bedscale on bed and patient is unable to stand up.
--- NOTE | 2020-09-05 05:16 | PC.NURSE ---
None bedscale on bed and patient is unable to stand up.
--- NOTE | 2020-09-05 06:42 | PC.NURSE ---
PT OFF FLOOR VIA BED W/OR STAFF AT [id number]
[2020-09-05 06:45] LABS: Basophils % 0.2 % (0.1-2.0); Eosinophils # 0.4 K/mm3 (0.0-0.4); Eosinophils % 3.9 % (0.1-12.0); Hematocrit 31.9 % (37.0-47.0); Hemoglobin 10.2 g/dL (12.2-16.2); Lymphocytes # 2.1 K/mm3 (0.7-4.5); Lymphocytes % 19.5 % (10-50); Mean Corpuscular Hemoglobin 28.5 pg (27.0-31.2); Mean Platelet Volume 7.6 fl (7.4-10.4); Monocytes # 0.4 K/mm3 (0.1-1.0); Monocytes % 3.4 % (1.7-9.3); Neutrophils # 7.9 K/mm3 (1.8-7.8); Platelet Count 287 K/mm3 (142-424); Red Blood Count 3.59 M/mm3 (4.20-5.40); Red Cell Distribution Width 14.8 % (11.5-17.5); White Blood Count 10.8 K/mm3 (4.8-10.8)
[2020-09-05 06:53] LABS: Chloride 105 mmol/L (98-107)
[2020-09-05 06:54] LABS: Potassium 4.1 mmoL/L (3.5-5.1); Sodium 138 mmol/L (136-145)
[2020-09-05 06:56] LABS: Blood Urea Nitrogen 11 mg/dl (7-17); Creatinine Clearance Estimated 119 mL/min (50-200); Estimated Glomerular Filt Rate 85 ml/min (>60); GFR (African American) 103 ML/MIN (>60)
[2020-09-05 06:57] LABS: Calcium 9.1 mg/dl (8.4-10.2); Carbon Dioxide 25 mmol/L (22.0-30.0); Glucose 104 mg/dl (74-100)
--- NOTE | 2020-09-05 07:33 | HMH.OPNOTE ---
Date of procedure: 09/05/20 Pre-op Diagnosis:: 1. Right foot wound 2. Right foot osteomyelitis 3. Right foot retained orthopedic hardware 4. Right foot retained sutures Post-op Diagnosis:: Same Procedure performed:: 1. Right foot suture removal 2. Right foot hardware removal 3. Right foot deep wound debridement 4. Right foot bone biospy 5. Right foot delayed primary closure 6. Application of skin graft Surgeon:: Ursula Cheek DPM CASH PERSON:: Other (Keisha Marie) Anesthesia: MAC, regional Estimated blood loss (mL): 15 Clinical Note:: 08/22/20, S/P Right deep ankle wound debridement (Versajet debridement, Right foot partial delayed primary closure, Right foot percutaneous bone biospy x4, Right foot irrigation and debridement PICC placement. IV Daptomycin 1g (after bone biospy). POD# 13 X-rays 3 views of right foot and ankle, evaluated by myself. Report noted. FINDINGS: Prior fusion of the talocalcaneal, calcaneocuboid, talonavicular and navicular cuneiform. No change in the metallic hardware. There is diffuse osteopenia the tarsal bones. No acute fracture or dislocation is evident. An anchor screws present within the lateral malleolus. There remains good alignment. The posterior limb of the staple at the calcaneal cuboid region is along the anterior aspect of the calcaneus possibly within the joint space. No obvious bony destructive process. Lucency remains within the lateral aspect of the talar dome. There is also lucency within the distal fibula which could be a prior screw track. Other findings: None. IMPRESSION: Overall no change in the tarsal fusion with diffuse osteopenia. Overall the right lateral foot wound has filled and looks improved. There is still an area of opening. Reviewed and discussed new x-rays right foot and ankle with the patient. Discussed plan of care. Recommendation is removal of plate and screw near the positive biopsy site, after 5 biopsy pathology sites were negative for osteomyelitis. Continue IV daptomycin with the PICC line. She does have a follow-up with infectious disease 09/14/20. Discussed plan of care with Dr. Estevez, clearance granted. We discussed conservative versus surgical treatment options. Conservative treatment options include local wound care, oral and IV antibiotics, change in shoe wear, taping/padding, and off-loading. We discussed surgical intervention for removal of hardware closest to the positive biopsy site. Patient also understands that they could have wound healing complications including delayed healing and infection. We discussed that if the wound does not heal, it is possible that they may need a more proximal amputation and could result in further loss of digits, loss of partial foot or loss of leg. We discussed the risks and benefits in great detail. Other surgical risks include: prolonged pain and swelling, further infection requiring oral or IV antibiotics, delay in healing of soft tissue or bone, nerve or blood vessel damage, CRPS/RSD, DVT/PE, anesthesia complications, and even . All questions answered. Patient verbalized understanding. Consent obtained. Operative findings:: Right foot lateral wound dehiscence noted. Some sutures noted, removed. The entire area was approximately 10 x 2.5 x 0.4 cm. There was no purulence or malodor noted. The superior one third of the wound at fill then and was 100% granular with no depth. The most distal aspect of the wound was also 100% granular no depth. There is a central area of opening distal to the apex of the incision over the calcaneus. At this area the tissue was rubbery and a mixture of fibrotic and granular tissue. No purulence, malodor or ascending cellulitis noted. 2 hole plate and screws noted in the calcaneus were removed. Underlying bone white and soft, osteoporotic difficult to ascertain if from osteopenia/porosis versus infection. Post debridment the wound was 100% granular with bleeding edges noted. Sutures used to re-approximate the sk
--- NOTE | 2020-09-05 07:47 | P.PN_ITS ---
[facility] Anesthesia Checklist - Patient Identification Patient Identification: Arm Band - Structural Data Admitted From: Inpatient Planned Operative Procedure/s: Hardware removal, debridement Consent for Planned Operative Procedure(s) Verified: Yes - Additional verifications Anesthesia Reactions: No Hx Blood Transfusions: No Blood Transfusion Reaction: No - Airway Assessment Dentition: Good Dentition - Neurological Assessment Level of Consciousness: Awake, Alert Hx Seizures: No Numbness or tingling in extremities: No - Anesthesia Plan Anesthesia Risk discussed: Yes Anesthesia Plan: Verified ASA Class: III Anesthesia Type: MAC w/Block [facility] History I have reviewed the patient's past medical history: Yes Medical History: Reports:: Depression, Gastroesophageal Reflux Disease(GERD), Hyperlipidemia, Hypertension, Palpitations Denies:: Cancer, Diabetes Mellitus Type 1, Diabetes Mellitus Type 2, Internal Pacemaker, Lung Disease, MRSA, Seizures Comment Only: Congestive Heart Failure (diastolic dysfunction) *Have you ever received a pneumonia vaccine?: Yes *Have you received a flu vaccine this season?: Yes Other Medical History: Reports: Arthritis (OA), Other (PE). Denies: Blood Transfusion Reaction Anesthesia experience/problems:: None Laterality Cases: Bilateral: Other Other Surgeries: Yes: Colonoscopy, Hernia Repair. No: Pacemaker Amputation: No Fractures: Yes (RIGHT AND LEFT FOOT, FIBULAR FX) - *Social History Last grade of school completed: Advanced degree Smoking Status: Former smoker #Yrs smoked (if former smoker): 8 Alcohol Intake: never Alcohol Intake Frequency:: holidays/special occasions only Substance Use Type: denies use *Occupational Status:: employed Housing: house Household Members: spouse *Travel in the last 8 weeks: None - Psychiatric History Pschychiatric History:: Reports:: Depression Family Hx:: Cancer, Diabetes, Heart Attack, Hyperlipidemia, Hypertension
--- NOTE | 2020-09-05 08:43 | HMH.ANESI ---
[facility] Anesthesia Record Part I Intake, IV Amount: 300 Estimated blood loss (mL): 5 Urine output (mL): 0 Blood Pressure: 122/69 SaO2: 94 Pulse Rate: 94 Respiratory Rate: 14 Temperature: 97.3 F Patient is:: Awake, Stable Stable to PACU at:: 08:40
--- NOTE | 2020-09-05 08:51 | XR_ITS ---
PROCEDURE: XR FOOT RT 2V CLINICAL INDICATION: HARDWARE REMOVAL COMPARISON: CR XR FOOT RT MIN 3V from 06/13/2020 CR XR FOOT RT MIN 3V from 08/01/2020 CR XR FOOT RT MIN 3V from 08/22/2020 CR XR FOOT RT MIN 3V from 09/04/2020 FINDINGS: Fluoroscopy time: 2 seconds An AP view of the right foot shows a metallic object lateral to the calcaneocuboid region. Other findings:None. IMPRESSION: Fluoro assisted OR procedure as described above Dictated by: Thai Meléndez MD 09/05/2020 13:12 Thai Meléndez MD in OV 09/05/2020 13:12
--- NOTE | 2020-09-05 13:24 | PC.NURSE ---
Pt RA sat 99%. Pt taken off of nasal canula at this time.
--- NOTE | 2020-09-05 15:14 | HMH.ACPN2 ---
<Mirtha Kaur - Last Filed: 09/05/20 15:14> Internal Medicine - PN: Subj *Date: 09/05/20 *Time: 15:14 Interval history: Patient states she has no pain at the moment. She had right foot suture removal and hardware removal along with wound debridement and a bone biopsy and skin graft placed this morning by Dr. Cheek. She is going to try to eat some lunch. Exam Vital signs and Labs for Last 24 Hours: Temp Pulse Resp BP Pulse Ox 98.1 F 93 H 18 119/65 96 09/05/20 13:35 09/05/20 13:35 09/05/20 13:35 09/05/20 13:35 09/05/20 13:35 Laboratory Results - last 24 hr 09/03/20 09:50: Functional Protein C 130, Functional Protein S 80, Antithrombin III Ag 87, Factor V Activity 81, Anti-Cardiolipin IgG Ab <9 09/05/20 06:26: WBC 10.8, RBC 3.59 L, Hgb 10.2 L, Hct 31.9 L, MCV 89.0, MCH 28.5, MCHC 32.0, RDW 14.8, Plt Count 287, MPV 7.6, Neut % (Auto) 73.0, Lymph % (Auto) 19.5, [place] % (Auto) 3.4, Eos % (Auto) 3.9, Baso % (Auto) 0.2, Neut # (Auto) 7.9 H, Lymph # (Auto) 2.1, [place] # (Auto) 0.4, Eos # (Auto) 0.4, Baso # (Auto) 0.0 09/05/20 06:26: Sodium 138, Potassium 4.1 D, Chloride 105, Carbon Dioxide 25, Anion Gap 58.0 H, BUN 11, Creatinine 0.70, Estimated Creat Clear 119, Estimated GFR 85, Est GFR ( Amer) 103, Glucose 104 H, Calcium 9.1 I & O for Last 24 hours: Intake & Output 09/03/20 09/04/20 09/05/20 09/06/20 11:59 11:59 11:59 11:59 Intake Total 1361 / 1361 1817 / 1817 Balance 1361 / 1361 1817 / 1817 Weight 199 lb 15.983 oz 195 lb Microbiology Reports for the Last 24 Hours: Microbiology 09/03/20 05:46 Blood Blood Culture - Preliminary NO GROWTH AFTER 48 HOURS 09/03/20 05:46 Blood Blood Culture - Preliminary NO GROWTH AFTER 48 HOURS - Constitutional no acute distress - *Routine Respiratory Exam Present: CTA bilaterally - *Routine Cardiovascular Exam Present: RRR - *Routine Abdominal Exam Present: soft, normoactive bowel sounds. Absent: tenderness - *Routine Extremities Exam Absent: cyanosis, clubbing, edema Comments: RLE with [place] wrap in place - *Routine Skin Exam Present: warm. Absent: rash - *Routine Neurological Exam Present: alert, oriented X3 Assessment and Plan (1) Depression Status: Acute Category: Medical Code(s): F32.9 - Major depressive disorder, single episode, unspecified (2) Pulmonary embolism Status: Acute Qualifiers: Pulmonary embolism type: unspecified Chronicity: acute Acute cor pulmonale presence: without acute cor pulmonale Qualified Code(s): I26.99 - Other pulmonary embolism without acute cor pulmonale Category: Medical Code(s): I26.99 - Other pulmonary embolism without acute cor pulmonale (3) Chest pain Status: Acute Qualifiers: Chest pain type: other chest pain Qualified Code(s): R07.89 - Other chest pain; R07.8 - Other chest pain Category: Medical Code(s): R07.9 - Chest pain, unspecified (4) HTN (hypertension) Status: Chronic Qualifiers: Hypertension type: essential hypertension Qualified Code(s): I10 - Essential (primary) hypertension Category: Medical Code(s): I10 - Essential (primary) hypertension (5) Chronic osteomyelitis Status: Chronic Category: Medical Code(s): M86.60 - Other chronic osteomyelitis, unspecified site (6) Neuritis of right foot Status: Chronic Category: Medical Code(s): G57.91 - Unspecified mononeuropathy of right lower limb (7) Status post foot surgery Status: Chronic Category: Surgical Code(s): Z98.890 - Other specified postprocedural states (8) Osteoarthritis of both ankles and feet Status: Chronic Category: Medical Code(s): M19.071 - Primary osteoarthritis, right ankle and foot; M19.072 - Primary osteoarthritis, left ankle and foot (9) Postoperative wound dehiscence Start date: 09/03/20 Status: Acute Category: Medical Code(s): T81.31XA - Disruption of ext
--- NOTE | 2020-09-05 15:28 | HMH.ORTHPN ---
Subjective Date: 09/05/20 Time: 13:30 Principal diagnosis: R foot wound, Chronic Osteomyeltis Interval history: Patient resting in bed appears to have just finished lunch. Patient states she is doing very well she denied any pain into her foot. Patient not able to wiggle or move her right lower extremity or toes at this time due to surgical block. The toes are nice pink and warm have normal cap refill, dressing remains clean dry and intact. Patient denied any pain in her chest regarding the PE she is satting 98% on room air and has nonlabored breathing noted. PN: Obj Ex Vital signs: Temp Pulse Resp BP Pulse Ox 98.1 F 93 H 18 119/65 96 09/05/20 13:35 09/05/20 13:35 09/05/20 13:35 09/05/20 13:35 09/05/20 13:35 - Constitutional no acute distress, cooperative - Routine HEENT Exam Head: Present: normocephalic Eye: Present: PERRL ENT: Present: mucous membranes moist - Routine Neck Exam Present: full ROM, trachea midline - Routine Respiratory Exam Absent: accessory muscle use, respiratory distress - Routine Cardiovascular Exam Present: RRR (Room air saturation at 98%) - Routine Abdominal Exam Present: obese - Routine Extremities Exam Present: normal capillary refill Comments: Surgical dressing intact unable to palpate pulse due to thick surgical dressing in place. Toes are pink and warm normal cap refill noted. - Detailed Lower Extremity Exam Ankle image: 1 - s/p 09/05/20: Right foot suture removal, right foot hardware removal, right foot deep wound debridement, right foot bone biopsy, right foot delayed primary closure, application of skin graft. Surgical dressing clean dry and intact foot elevated on a pillow. - Routine Back/Spine/Pelvis Exam Back/Spine: Present: full ROM - Routine Skin Exam Present: intact, dry, warm, wounds (Status post right foot suture, hardware removal, wound debridement and bone biopsy and graft placement.) - Routine Neurological Exam Present: alert, oriented X3, normal tone, vision grossly intact, hearing grossly intact, normal speech - Routine Psychiatric Exam Present: normal affect, cooperative Progress Note: A&P (1) Depression Status: Acute (2) Pulmonary embolism Status: Acute (3) Chest pain Status: Acute (4) HTN (hypertension) Status: Chronic (5) Chronic osteomyelitis Status: Chronic (6) Neuritis of right foot Status: Chronic (7) Status post foot surgery Status: Chronic (8) Osteoarthritis of both ankles and feet Status: Chronic (9) Postoperative wound dehiscence Status: Acute (10) Postoperative pain Status: Acute (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 No plans for wound vac re-application at this time. 2-Elevate on two pillows. 3-Continue PICC, IV Daptomycin 1g daily x 4-6 weeks. (weekly labs: cbc, bmp, esr, crp,cpk faxed to PCP, Dr. Estevez and Dr. Cheek). 4-Non weight bearing to the right lower extremity with DME assistance. 5-Cultures pending from [facility]:: Right foot hardware (2 hole plate, 2 screws) 6 Will round on the patient in the morning and do her dressing change. 7-When discharged for home she has a follow up with us on 09/10/20 @ [id number].
--- NOTE | 2020-09-05 16:18 | PC.NURSE ---
Trash and dirty linens pulled
--- NOTE | 2020-09-05 18:10 | PC.NURSE ---
Pt has rested well this shift. Pt has had no c/o pain or SOA this shift. Pt remains on RA with o21 sats >94%. No cough noted. Lung sounds CTA. IS used hourly while awake. IS @ best 500cc's. Rt foot dressing remains CDI and remains elevated on a pillow with an ice pack. Pt has had x2 bowel movements and has urinated multiple times this shift w/o difficulty. No other acute changes or complaints.
[2020-09-06] VITALS: BP 144/76; PULSE 95; RESP 16; TEMP 37.4; O2SAT 93
--- NOTE | 2020-09-06 03:16 | PC.NURSE ---
Pt A&O x4, no c/o pain or SOA this shift. Lungs CTA, on room air. Pt using IS q1h when awake. drsg on RLE CDI, unable to visualize surgical site, foot elevated on pillow. bowel soudns x4, abd soft and nontender. PICC patent, NS @ 50. VSS, call light in reach, no concerns at this time.
[2020-09-06 04:00] VITALS: BP 148/81; PULSE 94; RESP 24; TEMP 36.9; O2SAT 93
--- NOTE | 2020-09-06 06:12 | PC.NURSE ---
Patients bed does not have a bed scale and patient is unable to stand up.
[2020-09-06 06:24] LABS: Basophils % 0.2 % (0.1-2.0); Eosinophils # 0.4 K/mm3 (0.0-0.4); Eosinophils % 3.3 % (0.1-12.0); Hematocrit 34.5 % (37.0-47.0); Lymphocytes # 2.3 K/mm3 (0.7-4.5); Lymphocytes % 21.4 % (10-50); Mean Corpuscular HGB Conc 31.9 g/dL (31.8-35.4); Mean Corpuscular Volume 87.8 fl (81-99); Mean Platelet Volume 7.5 fl (7.4-10.4); Monocytes # 0.5 K/mm3 (0.1-1.0); Monocytes % 4.5 % (1.7-9.3); Neutrophils # 7.5 K/mm3 (1.8-7.8); Neutrophils % 70.7 % (37.0-80.0); Platelet Count 395 K/mm3 (142-424); Red Blood Count 3.93 M/mm3 (4.20-5.40); Red Cell Distribution Width 14.8 % (11.5-17.5); White Blood Count 10.6 K/mm3 (4.8-10.8)
[2020-09-06 06:31] LABS: Chloride 103 mmol/L (98-107); Potassium 4.2 mmoL/L (3.5-5.1); Sodium 138 mmol/L (136-145)
[2020-09-06 06:34] LABS: Alanine Aminotransferase 26 U/L (12-78); Albumin Level 3.7 g/dl (3.5-5.0); Albumin/Globulin Ratio 1.1 (1.1-1.8); Alkaline Phosphatase 74 U/L (38-126); Anion Gap 11.2 mEq/L (5-15); Aspartate Amino Transferase 22 U/L (14-36); Bilirubin,Total 0.5 mg/dl (0.2-1.3); Blood Urea Nitrogen 8 mg/dl (7-17); Calcium 9.5 mg/dl (8.4-10.2); Carbon Dioxide 28 mmol/L (22.0-30.0); Creatinine Clearance Estimated 104 mL/min (50-200); Estimated Glomerular Filt Rate 73 ml/min (>60); GFR (African American) 89 ML/MIN (>60); Globulin 3.4 g/dL (1.3-3.2); Glucose 115 mg/dl (74-100); Total Protein,Serum 7.1 g/dl (6.3-8.2)
[2020-09-06 06:40] LABS: C-Reactive Protein 131.9 mg/L (0-4)
[2020-09-06 07:23] LABS: Erythrocyte Sedimentation Rate > 140 mm/hr (0-30)
[2020-09-06 08:00] VITALS: BP 121/67; PULSE 100; RESP 18; TEMP 36.9; O2SAT 95
--- NOTE | 2020-09-06 08:32 | HMH.ACPN2 ---
<Mirtha Kaur - Last Filed: 09/06/20 08:32> Internal Medicine - PN: Subj *Date: 09/06/20 *Time: 08:32 Interval history: Patient states she is feeling well this morning. Her pain is around a level 2. Dr. Cheek has been in and changed her dressing today. She is anxious to go home. She does have a rash on her back and around her PICC line site that is itching. Exam Vital signs and Labs for Last 24 Hours: Temp Pulse Resp BP Pulse Ox 98.4 F 100 H 18 121/67 95 09/06/20 08:00 09/06/20 08:00 09/06/20 08:00 09/06/20 08:00 09/06/20 08:00 Laboratory Results - last 24 hr 09/06/20 06:00: WBC 10.6, RBC 3.93 L, Hgb 11.0 L, Hct 34.5 L, MCV 87.8, MCH 28.0, MCHC 31.9, RDW 14.8, Plt Count 395 D, MPV 7.5, Neut % (Auto) 70.7, Lymph % (Auto) 21.4, [place] % (Auto) 4.5, Eos % (Auto) 3.3, Baso % (Auto) 0.2, Neut # (Auto) 7.5, Lymph # (Auto) 2.3, [place] # (Auto) 0.5, Eos # (Auto) 0.4, Baso # (Auto) 0.0 09/06/20 06:00: Sodium 138, Potassium 4.2, Chloride 103, Carbon Dioxide 28, Anion Gap 11.2, BUN 8 D, Creatinine 0.80, Estimated Creat Clear 104, Estimated GFR 73, Est GFR ( Amer) 89, Glucose 115 H, Calcium 9.5, Total Bilirubin 0.5, AST 22, ALT 26, Alkaline Phosphatase 74, C-Reactive Protein 131.9 H, Total Protein 7.1, Albumin 3.7, Globulin 3.4 H, Albumin/Globulin Ratio 1.1 09/06/20 06:00: ESR > 140 H I & O for Last 24 hours: Intake & Output 09/03/20 09/04/20 09/05/20 09/06/20 11:59 11:59 11:59 11:59 Intake Total 1361 / 1361 1816 / 1816 180 / 180 Balance 1361 / 1361 1817 / 181 180 / 180 Weight 199 lb 15.983 oz 195 lb Microbiology Reports for the Last 24 Hours: Microbiology 09/03/20 05:46 Blood Blood Culture - Preliminary NO GROWTH AFTER 48 HOURS 09/03/20 05:46 Blood Blood Culture - Preliminary NO GROWTH AFTER 48 HOURS - Constitutional no acute distress - *Routine Respiratory Exam Present: CTA bilaterally - *Routine Cardiovascular Exam Present: RRR - *Routine Abdominal Exam Present: soft, normoactive bowel sounds. Absent: tenderness - *Routine Extremities Exam Absent: cyanosis, clubbing, edema Comments: right foot with dressing in place - *Routine Skin Exam Present: warm. Absent: rash - *Routine Neurological Exam Present: alert, oriented X3 Assessment and Plan (1) Depression Status: Acute Category: Medical Code(s): F32.9 - Major depressive disorder, single episode, unspecified (2) Pulmonary embolism Status: Acute Qualifiers: Pulmonary embolism type: unspecified Chronicity: acute Acute cor pulmonale presence: without acute cor pulmonale Qualified Code(s): I26.99 - Other pulmonary embolism without acute cor pulmonale Category: Medical Code(s): I26.99 - Other pulmonary embolism without acute cor pulmonale (3) Chest pain Status: Acute Qualifiers: Chest pain type: other chest pain Qualified Code(s): R07.89 - Other chest pain Category: Medical Code(s): R07.9 - Chest pain, unspecified (4) HTN (hypertension) Status: Chronic Qualifiers: Hypertension type: essential hypertension Qualified Code(s): I10 - Essential (primary) hypertension Category: Medical Code(s): I10 - Essential (primary) hypertension (5) Chronic osteomyelitis Status: Chronic Category: Medical Code(s): M86.60 - Other chronic osteomyelitis, unspecified site (6) Neuritis of right foot Status: Chronic Category: Medical Code(s): G57.91 - Unspecified mononeuropathy of right lower limb (7) Status post foot surgery Status: Chronic Category: Surgical Code(s): Z98.890 - Other specified postprocedural states (8) Osteoarthritis of both ankles and feet Status: Chronic Category: Medical Code(s): M19.071 - Primary osteoarthritis, right ankle and foot; M19.072 - Primary osteoarthritis, left ankle and foot (9) Postoperative wound dehiscence Start date: 09/03/20 Status: Acute
--- NOTE | 2020-09-06 08:36 | HMH.ORTHPN ---
Subjective Date: 09/06/20 <Melia Kemp - 09/06/20 09:14> Time: 07:45 <Melia Kemp - 09/06/20 09:14> Principal diagnosis: R foot wound, Chronic Osteomyeltis <Melia Kemp - 09/06/20 09:14> Interval history: Patient is doing very well this morning she just finished eating breakfast denies any pain with the foot still has some tingling sensation noted to the top and lower end of the site but is able to move her toes freely. Pedal pulses are intact and cap refill is within normal limits. Very mild to trace of edema noted to the dorsal top of the foot no edema noted to lower extremity leg. We will do the patient's dressing this morning and discuss plans for her follow-up on Thursday in our office. <Melia Kemp - 09/06/20 09:14> PN: Obj Ex Vital signs: Temp Pulse Resp BP Pulse Ox 98.4 F 100 H 18 121/67 95 09/06/20 08:00 09/06/20 08:00 09/06/20 08:00 09/06/20 08:00 09/06/20 08:00 <HamUrsula martinez - 09/06/20 11:34> Temp Pulse Resp BP Pulse Ox 98.4 F 100 H 18 121/67 95 09/06/20 08:00 09/06/20 08:00 09/06/20 08:00 09/06/20 08:00 09/06/20 08:00 <Melia Kemp - 09/06/20 09:14> - Constitutional no acute distress, obese, cooperative <Melia Kemp - 09/06/20 09:14> - Routine HEENT Exam Head: Present: normocephalic <Melia Kemp - 09/06/20 09:14> Eye: Present: PERRL <Melia Kemp - 09/06/20 09:14> ENT: Present: mucous membranes moist <Melia Kemp - 09/06/20 09:14> - Routine Neck Exam Present: full ROM, trachea midline <JustoMelia Greenberg 09/06/20 09:14> - Routine Chest/Breast/Axilla Exam Chest wall: Present: tenderness (Right lower chest feels better and no pain from PE.) <Melia Kemp 09/06/20 09:14> - Routine Respiratory Exam Absent: accessory muscle use, respiratory distress <Melia Kemp 09/06/20 09:14> - Routine Cardiovascular Exam Present: RRR <Melia Kemp 09/06/20 09:14> - Routine Abdominal Exam Present: soft, obese <Melia Kemp 09/06/20 09:14> - Routine Extremities Exam Present: edema (Trace of Right foot edema), pulses intact, normal capillary refill <Melia Kemp 09/06/20 09:14> - Detailed Lower Extremity Exam Ankle image: 1 - s/p 09/05/20: Right foot suture removal, right foot hardware removal, right foot deep wound debridement, right foot bone biopsy, right foot delayed primary closure, application of skin graft. Surgical dressing was changed this am, site looked good, no drainage noted. Sutures are in place and graft intact. New xeroform, betadine soaked gauze, dry 4x4, kerlix and shavon applied. Patient is not to change the dressing at home, we will change again in the office on Thursday. Keep foot elevated on a pillow. <Melia Kemp 09/06/20 09:14> - Routine Back/Spine/Pelvis Exam Back/Spine: Present: full ROM <Melia Kemp 09/06/20 09:14> - Routine Skin Exam Present: dry, wounds (Right foot S/P Hardware, Bone biopsy, wound debridement, graft placement. ) <Melia Kemp 09/06/20 09:14> - Routine Neurological Exam Present: oriented X3, normal tone, hearing grossly intact, normal speech <Melia Kemp 09/06/20 09:14> - Routine Psychiatric Exam Present: normal affect, cooperative <Melia Kemp - 09/06/20 09:14> Progress Note: A&P (1) Depression Status: Acute (2) Pulmonary embolism Status: Acute (3) Chest pain Status: Acute (4) HTN (hypertension) Status: Chronic (5) Chronic osteomyelitis Status: Chronic (6) Neuritis of right foot Status: Chronic (7) Status post foot surgery Status: Chronic (8) Osteoarthritis of both ankles and feet Status: Chronic (9) Postoperative wound dehiscence Status: Acute (10) Postoperative pain Status: Acute (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
--- NOTE | 2020-09-06 10:51 | HMH.ACPN ---
Internal Medicine - PN: Subj *Date: 09/06/20 *Time: 10:51 Exam Vital signs and Labs for Last 24 Hours: Temp Pulse Resp BP Pulse Ox 98.4 F 100 H 18 121/67 95 09/06/20 08:00 09/06/20 08:00 09/06/20 08:00 09/06/20 08:00 09/06/20 08:00 Laboratory Results - last 24 hr 09/06/20 06:00: WBC 10.6, RBC 3.93 L, Hgb 11.0 L, Hct 34.5 L, MCV 87.8, MCH 28.0, MCHC 31.9, RDW 14.8, Plt Count 395 D, MPV 7.5, Neut % (Auto) 70.7, Lymph % (Auto) 21.4, [place] % (Auto) 4.5, Eos % (Auto) 3.3, Baso % (Auto) 0.2, Neut # (Auto) 7.5, Lymph # (Auto) 2.3, [place] # (Auto) 0.5, Eos # (Auto) 0.4, Baso # (Auto) 0.0 09/06/20 06:00: Sodium 138, Potassium 4.2, Chloride 103, Carbon Dioxide 28, Anion Gap 11.2, BUN 8 D, Creatinine 0.80, Estimated Creat Clear 104, Estimated GFR 73, Est GFR ( Amer) 89, Glucose 115 H, Calcium 9.5, Total Bilirubin 0.5, AST 22, ALT 26, Alkaline Phosphatase 74, C-Reactive Protein 131.9 H, Total Protein 7.1, Albumin 3.7, Globulin 3.4 H, Albumin/Globulin Ratio 1.1 09/06/20 06:00: ESR > 140 H I & O for Last 24 hours: Intake & Output 09/03/20 09/04/20 09/05/20 09/06/20 23:59 23:59 23:59 23:59 Intake Total 545 / 545 1495 1197 / 1197 120 / 120 Balance 5 / 545 1495 1197 / 1197 120 / 120 Weight 90.718 kg 88.451 kg Assessment and Plan (1) Depression Status: Acute Category: Medical Code(s): F32.9 - Major depressive disorder, single episode, unspecified (2) Pulmonary embolism Status: Acute Qualifiers: Pulmonary embolism type: unspecified Chronicity: acute Acute cor pulmonale presence: without acute cor pulmonale Qualified Code(s): I26.99 - Other pulmonary embolism without acute cor pulmonale Category: Medical Code(s): I26.99 - Other pulmonary embolism without acute cor pulmonale (3) Chest pain Status: Acute Qualifiers: Chest pain type: other chest pain Qualified Code(s): R07.89 - Other chest pain; R07.8 - Other chest pain Category: Medical Code(s): R07.9 - Chest pain, unspecified (4) HTN (hypertension) Status: Chronic Qualifiers: Hypertension type: essential hypertension Qualified Code(s): I10 - Essential (primary) hypertension Category: Medical Code(s): I10 - Essential (primary) hypertension (5) Chronic osteomyelitis Status: Chronic Category: Medical Code(s): M86.60 - Other chronic osteomyelitis, unspecified site (6) Neuritis of right foot Status: Chronic Category: Medical Code(s): G57.91 - Unspecified mononeuropathy of right lower limb (7) Status post foot surgery Status: Chronic Category: Surgical Code(s): Z98.890 - Other specified postprocedural states (8) Osteoarthritis of both ankles and feet Status: Chronic Category: Medical Code(s): M19.071 - Primary osteoarthritis, right ankle and foot; M19.072 - Primary osteoarthritis, left ankle and foot (9) Postoperative wound dehiscence Start date: 09/03/20 Status: Acute Category: Medical Code(s): T81.31XA - Disruption of external operation (surgical) wound, not elsewhere classified, initial encounter (10) Postoperative pain Start date: 09/03/20 Status: Acute Category: Medical Code(s): G89.18 - Other acute postprocedural pain (11) Arthrodesis malunion Start date: 09/03/20 Status: Acute Category: Medical Code(s): T84.498A - Other mechanical complication of other internal orthopedic devices, implants and grafts, initial encounter (12) Wound of right foot Start date: 09/03/20 Status: Acute Category: Medical Code(s): S91.301A - Unspecified open wound, right foot, initial encounter (13) Paresthesia and pain of right extremity Start date: 09/03/20 Status: Acute Category: Medical Code(s): M79.609 - Pain in unspecified limb; R20.2 - Paresthesia of skin (14) Postoperative edema Start date: 09/03/20 Status: Acute Category: Medical Code(s): R60.9 - Edema, unspecified (15) Rash Status: Acute Category:
--- NOTE | 2020-09-10 14:49 | HMH.DCSUM ---
General - General Admission date:: 09/03/20 <Arturo Estevez - 09/11/20 08:21> 09/03/20 <Mirtha Kaur - 09/10/20 15:09> Discharge date: 09/06/20 <Mirtha Kaur - 09/10/20 15:09> HPI HPI: Ms. Valladares is a 60-year-old female with a history of hypertension, depression, and GERD. She had at triple arthrodesis bilateral ankles and had extensive surgery on the right foot by Dr. Cheek. She had additional surgery with wound debridement for wound dehiscence, cellulitis of the right foot, and MRSA. She has been on daptomycin for 2 weeks via PICC line. Patient states that yesterday she developed a fever and took Motrin with resolution of the fever. She then awakened about 2 AM with severe right chest pain and shortness of breath. Thus she presented to the emergency room. With work-up in the emergency room temperature was 98.7. O2 sats ranged from 90-98. White blood cell count was 17,400 with a hemoglobin of 11.2 and hematocrit of 34.6. She received a liter of IV fluids, Kertolac IV, Solu-Medrol 125, and Lovenox. CTA of the chest revealed segmental pulmonary embolus in the posterior segment branch of the right lower lobe with consolidation in the right lower lobe which may be due to infarction with atelectatic change versus pneumonia. Patient was then admitted to acute care for ongoing treatment and evaluation. At the time of this exam patient is not short of breath and she denies chest pain. <Mirtha Kaur - 09/10/20 15:09> Hospital Course Hospital Course: The patient was admitted and started on Xarelto. An ultrasound of the bilateral lower extremities and left arm were ordered and podiatry was consulted. Her venous Dopplers were all negative for DVT. Dr. Cheek saw the patient to change out her wound VAC. There were no new signs of infection noted. She did have some chest pain due to the PE. Dr. Cheek saw the patient again to discuss bone biopsy results. She had a positive biopsy result and the recommendation was to remove the plate and screw near the positive biopsy site and then continue with IV daptomycin via the PICC line. She does have a follow-up scheduled with infectious disease on 09/14/2020. Patient was taken to the OR on 09/05/2020 due to her right foot osteomyelitis and the right foot hardware was removed and the wound was debrided. A bone biopsy was taken and a skin graft was placed. The patient had minimal pain after her surgery and she was able to eat. Her blood culture showed no growth. Dr. Cheek did not plan to replace her wound VAC but did change her dressing while in the hospital. She felt she would need to remain on IV daptomycin for 4 to 6 weeks. She is to remain nonweightbearing to the right lower extremity. By 09/06/2020 the patient was feeling well and anxious to go home. She had developed a rash on her back and around the tape along her PICC line site. She was given a dose of Benadryl. It was felt she was stable to be discharged home and she will continue IV antibiotics and keep all of her follow-up appointments. <Mirtha Kaur - 09/10/20 15:09> Objective Vital signs: Temp Pulse Resp BP Pulse Ox 98.4 F 100 H 18 121/67 95 09/06/20 08:00 09/06/20 08:00 09/06/20 08:00 09/06/20 08:00 09/06/20 08:00 <Arturo Estevez - 09/11/20 08:21> Temp Pulse Resp BP Pulse Ox 98.4 F 100 H 18 121/67 95 09/06/20 08:00 09/06/20 08:00 09/06/20 08:00 09/06/20 08:00 09/06/20 08:00 <Mirtha Kaur - 09/10/20 15:09> Narrative: - Constitutional no acute distress - *Routine HEENT Exam Head: Present: normocephalic, atraumatic Eye: Present: PERRL. Absent: conjunctival icterus, scleral injection ENT: Present: mucous membranes moist, oropharynx clear, nares patent - *Routine Neck Exam Present: supple. Absent: carotid bruit, lymphadenopathy, thyromegaly - *Routine Respiratory Exam Present: CTA bilaterally (Anteriorly and posteriorly) - *Routine Ca
[2020-09-14 16:20] LABS: Anti-Cardiolipin Antibody IgM <9
== END 2020-09-06 11:27 | disposition home or self-care (01) | DRG 982 ==
LOC: ER 07:42 → ICU 10:31 → 2ND 18:01
PROVIDERS: Nurse Practitioner Family; Podiatrist; Admitting Provider Family Medicine; Emergency Provider Emergency Medicine; PCP Family Medicine; Visit Provider Family Medicine
PROC: 0QPL04Z Removal of Internal Fixation Device from Right Tarsal, Open Approach (ICD-10-PCS; principal; 2020-09-05 07:00)
DX: I26.99 Other pulmonary embolism without acute cor pulmonale (principal); T81.31XA Disruption of external operation (surgical) wound, not elsewhere classified, initial encounter; I50.30 Unspecified diastolic (congestive) heart failure; M86.671 Other chronic osteomyelitis, right ankle and foot; T84.69XA Infection and inflammatory reaction due to internal fixation device of other site, initial encounter; F32.9 Major depressive disorder, single episode, unspecified; M19.072 Primary osteoarthritis, left ankle and foot; M19.071 Primary osteoarthritis, right ankle and foot; G57.91 Unspecified mononeuropathy of right lower limb; E78.5 Hyperlipidemia, unspecified; Z87.891 Personal history of nicotine dependence; Z79.82 Long term (current) use of aspirin; Y83.1 Surgical operation with implant of artificial internal device as the cause of abnormal reaction of the patient, or of later complication, without mention of misadventure at the time of the procedure; Z91.018 Allergy to other foods; I11.0 Hypertensive heart disease with heart failure
CPT/HCPCS: 20680; 20240; 11044; 15275; 71045; 71275; 73610; 73620; 73630; 76000; 80048; 80053; 81241; 83605; 84145; 84484; 85007; 85025; 85220; 85301; 85302; 85306; 85651; 86140; 86147; 87040; 87186; 87581; 87633; 87798; 93005; 93306; 93970; 93971; 94761; 96365; 96372; 96375; 99284; J0878; J1642; Q4100; Q9967

== ENCOUNTER 2020-09-07 12:20 | Outpatient (CLI) | payer OTHER, SELFPAY ==
[2020-09-07 12:55] VITALS: BP 126/71; PULSE 95; RESP 18; TEMP 36.4; O2SAT 97
[2020-09-07 13:50] VITALS: BP 113/67; PULSE 95; RESP 18
== END 2020-09-07 14:05 | disposition home or self-care (01) ==
LOC: INF 12:30
PROVIDERS: Visit Provider Nurse Practitioner
DX: L03.115 Cellulitis of right lower limb (principal)
CPT/HCPCS: 96365; J0878

== ENCOUNTER 2020-09-08 12:53 | Outpatient (CLI) | payer OTHER, SELFPAY | END 2020-09-08 14:00 | disposition home or self-care (01) | LOC: INF 12:55 | PROVIDERS: PCP Family Medicine; Visit Provider Nurse Practitioner | DX: L03.115 Cellulitis of right lower limb (principal) | CPT/HCPCS: 96365; G0463; J0878 ==

== ENCOUNTER 2020-09-09 12:26 | Outpatient (CLI) | payer OTHER, SELFPAY ==
[2020-09-09 12:50] VITALS: BP 103/67; PULSE 88; RESP 18; TEMP 36.8; O2SAT 94
[2020-09-09 14:10] VITALS: BP 96/59; PULSE 88; RESP 18; TEMP 36.9; O2SAT 100
== END 2020-09-09 14:12 | disposition home or self-care (01) ==
PROVIDERS: PCP Family Medicine; Visit Provider Nurse Practitioner
DX: L03.115 Cellulitis of right lower limb (principal)
CPT/HCPCS: 96365; J0878

== ENCOUNTER 2020-09-10 10:50 | Outpatient (CLI) | payer OTHER, SELFPAY ==
[2020-09-10 11:17] VITALS: BP 130/77; PULSE 81; RESP 18; TEMP 36.3; O2SAT 96
[2020-09-10 12:27] VITALS: BMI 35.4
[2020-09-10 12:45] VITALS: BP 148/89; PULSE 81; RESP 18
[2020-09-10 12:57] LABS: Chloride 100 mmol/L (98-107); Potassium 3.6 mmoL/L (3.5-5.1); Sodium 137 mmol/L (136-145)
[2020-09-10 12:58] LABS: Basophils % 0.2 % (0.1-2.0); Eosinophils # 0.1 K/mm3 (0.0-0.4); Eosinophils % 2.1 % (0.1-12.0); Hematocrit 33.9 % (37.0-47.0); Lymphocytes # 1.5 K/mm3 (0.7-4.5); Lymphocytes % 22.2 % (10-50); Mean Corpuscular HGB Conc 32.5 g/dL (31.8-35.4); Mean Platelet Volume 7.6 fl (7.4-10.4); Monocytes # 0.3 K/mm3 (0.1-1.0); Monocytes % 4.5 % (1.7-9.3); Neutrophils # 4.7 K/mm3 (1.8-7.8); Neutrophils % 71.1 % (37.0-80.0); Platelet Count 462 K/mm3 (142-424); Red Blood Count 3.95 M/mm3 (4.20-5.40); Red Cell Distribution Width 14.7 % (11.5-17.5); White Blood Count 6.7 K/mm3 (4.8-10.8)
[2020-09-10 13:00] LABS: Anion Gap 11.6 mEq/L (5-15); Blood Urea Nitrogen 10 mg/dl (7-17); Calcium 9.4 mg/dl (8.4-10.2); Carbon Dioxide 29 mmol/L (22.0-30.0); Creatine Kinase 52 U/L (30-135); Creatinine Clearance Estimated 107 mL/min (50-200); Estimated Glomerular Filt Rate 73 ml/min (>60); GFR (African American) 89 ML/MIN (>60); Glucose 109 mg/dl (74-100)
[2020-09-10 13:06] LABS: C-Reactive Protein 43.5 mg/L (0-4)
== END 2020-09-10 12:45 | disposition home or self-care (01) ==
LOC: INF 12:20
PROVIDERS: Visit Provider Nurse Practitioner
DX: L03.115 Cellulitis of right lower limb (principal)
CPT/HCPCS: 80048; 82550; 85025; 86140; 96365; J0878

== ENCOUNTER 2020-09-11 08:59 | Outpatient (CLI) | payer OTHER, SELFPAY ==
[2020-09-11 09:10] VITALS: BP 131/79; PULSE 89; RESP 18; TEMP 36.9; O2SAT 98
[2020-09-11 09:50] VITALS: BP 136/78; PULSE 86; RESP 18; O2SAT 98
== END 2020-09-11 09:55 | disposition home or self-care (01) ==
LOC: INF 08:59
PROVIDERS: Visit Provider Podiatrist
DX: L03.115 Cellulitis of right lower limb (principal)
CPT/HCPCS: 96365; J0878

== ENCOUNTER 2020-09-12 09:07 | Outpatient (CLI) | payer OTHER, SELFPAY ==
[2020-09-12 09:31] VITALS: BP 141/86; PULSE 95; RESP 20; TEMP 37.1; O2SAT 95
[2020-09-12 10:01] VITALS: BP 147/88; PULSE 89; RESP 20; O2SAT 95
[2020-09-12 10:40] VITALS: BP 136/88; PULSE 84; RESP 20; O2SAT 95
== END 2020-09-12 10:45 | disposition home or self-care (01) ==
LOC: INF 09:07
PROVIDERS: Visit Provider Nurse Practitioner
DX: L03.115 Cellulitis of right lower limb (principal)
CPT/HCPCS: 96365; J0878

== ENCOUNTER 2020-09-13 08:46 | Outpatient (CLI) | payer OTHER, SELFPAY ==
[2020-09-13 09:00] VITALS: BP 152/77; PULSE 68; RESP 20; TEMP 36.9; O2SAT 95
[2020-09-13 09:50] VITALS: BP 121/80; PULSE 54; RESP 20; TEMP 36.4; O2SAT 98
== END 2020-09-13 09:55 | disposition home or self-care (01) ==
LOC: INF 08:47
PROVIDERS: Visit Provider Nurse Practitioner
DX: L03.115 Cellulitis of right lower limb (principal)
CPT/HCPCS: 96365; J0878

== ENCOUNTER 2020-09-14 08:35 | Outpatient (CLI) | payer OTHER, SELFPAY ==
[2020-09-14 09:04] VITALS: BP 122/68; PULSE 84; RESP 18; TEMP 37.1; O2SAT 95
[2020-09-14 09:55] VITALS: BP 126/70; PULSE 88; RESP 18; O2SAT 95
== END 2020-09-14 09:55 | disposition home or self-care (01) ==
LOC: INF 08:35
PROVIDERS: Visit Provider Nurse Practitioner
DX: L03.115 Cellulitis of right lower limb (principal)
CPT/HCPCS: 96365; J0878

== ENCOUNTER → 2020-09-15 11:02 | Outpatient (CLI) | payer OTHER, SELFPAY ==
[2020-09-15 11:31] VITALS: BP 131/65; PULSE 95; RESP 18
== END ==
PROVIDERS: PCP Family Medicine; Visit Provider Internal Medicine Infectious Disease
DX: L03.115 Cellulitis of right lower limb (principal)
CPT/HCPCS: 96365; J0878

== ENCOUNTER → 2020-09-16 12:47 | Outpatient (CLI) | payer OTHER, SELFPAY ==
[2020-09-16 13:59] VITALS: BP 145/74; PULSE 74; RESP 14; TEMP 36.9; O2SAT 92
== END ==
PROVIDERS: PCP Family Medicine; Visit Provider Internal Medicine Infectious Disease
DX: M86.671 Other chronic osteomyelitis, right ankle and foot (principal)
CPT/HCPCS: 96365; J0878

== ENCOUNTER 2020-09-17 08:54 | Outpatient (CLI) | payer OTHER, SELFPAY ==
[2020-09-17 08:54] VITALS: BMI 35.4
[2020-09-17 09:16] LABS: Basophils % 0.1 % (0.1-2.0); Eosinophils # 0.3 K/mm3 (0.0-0.4); Eosinophils % 3.2 % (0.1-12.0); Hematocrit 33.2 % (37.0-47.0); Hemoglobin 10.7 g/dL (12.2-16.2); Lymphocytes # 1.7 K/mm3 (0.7-4.5); Lymphocytes % 20.3 % (10-50); Mean Corpuscular HGB Conc 32.2 g/dL (31.8-35.4); Mean Corpuscular Hemoglobin 27.6 pg (27.0-31.2); Mean Corpuscular Volume 85.7 fl (81-99); Mean Platelet Volume 7.6 fl (7.4-10.4); Monocytes # 0.4 K/mm3 (0.1-1.0); Monocytes % 4.1 % (1.7-9.3); Neutrophils # 6.2 K/mm3 (1.8-7.8); Neutrophils % 72.3 % (37.0-80.0); Platelet Count 462 K/mm3 (142-424); Red Blood Count 3.88 M/mm3 (4.20-5.40); Red Cell Distribution Width 14.8 % (11.5-17.5); White Blood Count 8.5 K/mm3 (4.8-10.8)
[2020-09-17 09:17] VITALS: BP 131/72; PULSE 88; RESP 18; TEMP 36.8; O2SAT 97
[2020-09-17 09:28] LABS: Chloride 102 mmol/L (98-107)
[2020-09-17 09:29] LABS: Potassium 3.8 mmoL/L (3.5-5.1); Sodium 136 mmol/L (136-145)
[2020-09-17 09:31] LABS: Alanine Aminotransferase 28 U/L (12-78); Alkaline Phosphatase 80 U/L (38-126); Anion Gap 11.8 mEq/L (5-15); Aspartate Amino Transferase 20 U/L (14-36); Bilirubin,Total 0.3 mg/dl (0.2-1.3); Blood Urea Nitrogen 17 mg/dl (7-17); Carbon Dioxide 26 mmol/L (22.0-30.0); Creatine Kinase 48 U/L (30-135); Creatinine Clearance Estimated 107 mL/min (50-200); Estimated Glomerular Filt Rate 73 ml/min (>60); GFR (African American) 89 ML/MIN (>60)
[2020-09-17 09:32] LABS: Albumin Level 3.7 g/dl (3.5-5.0); Albumin/Globulin Ratio 1.2 (1.1-1.8); Calcium 9.4 mg/dl (8.4-10.2); Globulin 3.1 g/dL (1.3-3.2); Glucose 132 mg/dl (74-100); Total Protein,Serum 6.8 g/dl (6.3-8.2)
[2020-09-17 10:12] LABS: C-Reactive Protein 25.3 mg/L (0-4)
[2020-09-17 10:15] VITALS: BP 125/80; PULSE 82; RESP 18; TEMP 36.8; O2SAT 99
[2020-09-17 10:42] LABS: Erythrocyte Sedimentation Rate > 140 mm/hr (0-30)
== END 2020-09-17 10:15 | disposition home or self-care (01) ==
LOC: INF 08:54
PROVIDERS: Visit Provider Internal Medicine Infectious Disease
DX: M86.171 Other acute osteomyelitis, right ankle and foot (principal)
CPT/HCPCS: 80053; 82550; 85025; 85651; 86140; 96365; J0878

== ENCOUNTER 2020-09-18 09:21 | Outpatient (CLI) | payer OTHER, SELFPAY ==
[2020-09-18 11:20] VITALS: BP 122/81; PULSE 91; RESP 18; TEMP 36.6; O2SAT 98
== END 2020-09-18 12:10 | disposition home or self-care (01) ==
LOC: INF 09:21
PROVIDERS: Visit Provider Internal Medicine Infectious Disease
DX: M86.171 Other acute osteomyelitis, right ankle and foot (principal)
CPT/HCPCS: 96365; 96375; J0878

== ENCOUNTER 2020-09-19 09:10 | Outpatient (CLI) | payer OTHER, SELFPAY ==
[2020-09-19 09:19] VITALS: BP 148/73; PULSE 85; RESP 17; TEMP 37.2; O2SAT 98
[2020-09-19 10:43] VITALS: BP 125/68; PULSE 86; RESP 17; TEMP 37.2; O2SAT 98
== END 2020-09-19 10:45 | disposition home or self-care (01) ==
LOC: INF 09:19
PROVIDERS: Visit Provider Internal Medicine Infectious Disease
DX: M86.171 Other acute osteomyelitis, right ankle and foot (principal)
CPT/HCPCS: 96365; J0878

== ENCOUNTER 2020-09-20 09:09 | Outpatient (CLI) | payer OTHER, SELFPAY ==
[2020-09-20 09:20] VITALS: BP 141/82; PULSE 91; RESP 18; TEMP 36.8; O2SAT 98
[2020-09-20 10:20] VITALS: BP 149/73; PULSE 92; RESP 18
== END 2020-09-20 10:20 | disposition home or self-care (01) ==
LOC: INF 09:09
PROVIDERS: Visit Provider Internal Medicine Infectious Disease
DX: M86.171 Other acute osteomyelitis, right ankle and foot (principal)
CPT/HCPCS: 96365; J0878

== ENCOUNTER 2020-09-21 09:10 | Outpatient (CLI) | payer OTHER, SELFPAY ==
[2020-09-21 09:30] VITALS: BP 139/74; PULSE 96; RESP 17; TEMP 36.9; O2SAT 97
[2020-09-21 10:15] VITALS: BP 159/83; PULSE 88; RESP 17; O2SAT 96
== END 2020-09-21 10:17 | disposition home or self-care (01) ==
LOC: INF 09:16
PROVIDERS: Visit Provider Internal Medicine Infectious Disease
DX: M86.171 Other acute osteomyelitis, right ankle and foot (principal)
CPT/HCPCS: 96365; J0878

== ENCOUNTER → 2020-09-22 10:34 | Outpatient (CLI) | payer OTHER, SELFPAY ==
[2020-09-22 12:02] VITALS: BP 118/81; PULSE 91; RESP 16; TEMP 36.9; O2SAT 98
== END ==
PROVIDERS: PCP Family Medicine; Visit Provider Internal Medicine Infectious Disease
DX: M86.171 Other acute osteomyelitis, right ankle and foot (principal)
CPT/HCPCS: 96365; J0878

== ENCOUNTER 2020-09-23 09:18 | Outpatient (CLI) | payer OTHER, SELFPAY ==
[2020-09-23 10:02] VITALS: BP 110/69; PULSE 90; RESP 18; O2SAT 99
== END 2020-09-23 10:42 | disposition home or self-care (01) ==
LOC: INF 09:20
PROVIDERS: PCP Family Medicine; Visit Provider Internal Medicine Infectious Disease
DX: M86.171 Other acute osteomyelitis, right ankle and foot (principal)
CPT/HCPCS: 96365; J0878

== ENCOUNTER 2020-09-24 09:42 | Outpatient (CLI) | payer OTHER, SELFPAY ==
[2020-09-24 09:47] VITALS: BMI 35.4
[2020-09-24 10:02] VITALS: BP 132/83; PULSE 87; RESP 18; TEMP 36.8; O2SAT 96
[2020-09-24 10:07] LABS: Basophils % 0.1 % (0.1-2.0); Eosinophils # 0.3 K/mm3 (0.0-0.4); Eosinophils % 4.5 % (0.1-12.0); Hematocrit 35.3 % (37.0-47.0); Hemoglobin 11.1 g/dL (12.2-16.2); Lymphocytes # 1.8 K/mm3 (0.7-4.5); Lymphocytes % 27.9 % (10-50); Mean Corpuscular HGB Conc 31.6 g/dL (31.8-35.4); Mean Corpuscular Hemoglobin 26.6 pg (27.0-31.2); Mean Corpuscular Volume 84.1 fl (81-99); Mean Platelet Volume 7.4 fl (7.4-10.4); Monocytes # 0.4 K/mm3 (0.1-1.0); Monocytes % 5.6 % (1.7-9.3); Neutrophils # 4.1 K/mm3 (1.8-7.8); Platelet Count 357 K/mm3 (142-424); White Blood Count 6.6 K/mm3 (4.8-10.8)
[2020-09-24 10:15] LABS: Chloride 100 mmol/L (98-107)
[2020-09-24 10:16] LABS: Potassium 3.9 mmoL/L (3.5-5.1); Sodium 138 mmol/L (136-145)
[2020-09-24 10:18] LABS: Blood Urea Nitrogen 15 mg/dl (7-17); Creatinine Clearance Estimated 107 mL/min (50-200); Estimated Glomerular Filt Rate 73 ml/min (>60); GFR (African American) 89 ML/MIN (>60)
[2020-09-24 10:19] LABS: Alanine Aminotransferase 23 U/L (12-78); Albumin/Globulin Ratio 1.3 (1.1-1.8); Alkaline Phosphatase 86 U/L (38-126); Anion Gap 11.9 mEq/L (5-15); Aspartate Amino Transferase 23 U/L (14-36); Bilirubin,Total 0.4 mg/dl (0.2-1.3); Calcium 9.9 mg/dl (8.4-10.2); Carbon Dioxide 30 mmol/L (22.0-30.0); Creatine Kinase 42 U/L (30-135); Globulin 3.1 g/dL (1.3-3.2); Glucose 103 mg/dl (74-100); Total Protein,Serum 7.1 g/dl (6.3-8.2)
[2020-09-24 10:25] LABS: C-Reactive Protein 13.4 mg/L (0-4)
[2020-09-24 10:50] VITALS: BP 128/72; PULSE 79; RESP 16; TEMP 36.8; O2SAT 96
[2020-09-24 11:36] LABS: Erythrocyte Sedimentation Rate 81 mm/hr (0-30)
== END 2020-09-24 10:55 | disposition home or self-care (01) ==
LOC: INF 09:42
PROVIDERS: Visit Provider Internal Medicine Infectious Disease
DX: M86.171 Other acute osteomyelitis, right ankle and foot (principal)
CPT/HCPCS: 80053; 82550; 85025; 85651; 86140; 96365; J0878

== ENCOUNTER 2020-09-25 09:28 | Outpatient (CLI) | payer OTHER, SELFPAY ==
[2020-09-25 09:42] VITALS: BP 132/78; PULSE 72; RESP 18; TEMP 36.4; O2SAT 97
[2020-09-25 10:20] VITALS: RESP 18; TEMP 36.4; O2SAT 97
== END 2020-09-25 10:25 | disposition home or self-care (01) ==
LOC: INF 09:28
PROVIDERS: Visit Provider Internal Medicine Infectious Disease
DX: M86.171 Other acute osteomyelitis, right ankle and foot (principal)
CPT/HCPCS: 96365; J0878

== ENCOUNTER 2020-09-26 09:15 | Outpatient (CLI) | payer OTHER, SELFPAY ==
[2020-09-26 09:45] VITALS: BP 165/87; PULSE 78; RESP 17; TEMP 36.4; O2SAT 96
[2020-09-26 10:50] VITALS: BP 156/83; PULSE 75; RESP 17; O2SAT 97
== END 2020-09-26 10:59 | disposition home or self-care (01) ==
LOC: INF 09:19
PROVIDERS: Visit Provider Internal Medicine Infectious Disease
DX: M86.171 Other acute osteomyelitis, right ankle and foot (principal)
CPT/HCPCS: 96365; J0878

== ENCOUNTER 2020-09-27 09:22 | Outpatient (CLI) | payer OTHER, SELFPAY ==
[2020-09-27 09:40] VITALS: BP 138/69; PULSE 79; RESP 18; TEMP 36.4; O2SAT 98
[2020-09-27 10:20] VITALS: BP 143/75; PULSE 84; RESP 16; TEMP 36.4; O2SAT 98
== END 2020-09-27 10:20 | disposition home or self-care (01) ==
LOC: INF 09:22
PROVIDERS: Visit Provider Internal Medicine Infectious Disease
DX: M86.171 Other acute osteomyelitis, right ankle and foot (principal)
CPT/HCPCS: 96365; J0878

== ENCOUNTER 2020-09-28 09:39 | Outpatient (CLI) | payer OTHER, SELFPAY ==
[2020-09-28 10:15] VITALS: BP 107/60; PULSE 89; RESP 18; O2SAT 96
[2020-09-28 11:00] VITALS: BP 131/70; PULSE 88; RESP 18
== END 2020-09-28 11:20 | disposition home or self-care (01) ==
LOC: INF 09:40
PROVIDERS: Visit Provider Internal Medicine Infectious Disease
DX: M86.171 Other acute osteomyelitis, right ankle and foot (principal)
CPT/HCPCS: 96365; J0878

== ENCOUNTER → 2020-09-29 09:59 | Outpatient (CLI) | payer OTHER, SELFPAY ==
[2020-09-29 10:55] VITALS: BP 110/75; PULSE 87; RESP 20; TEMP 36.6; O2SAT 97; BMI 34.7
== END ==
PROVIDERS: PCP Family Medicine; Visit Provider Internal Medicine Infectious Disease
DX: M86.671 Other chronic osteomyelitis, right ankle and foot (principal)
CPT/HCPCS: 96365; J0878

== ENCOUNTER 2020-09-30 11:45 | Outpatient (CLI) | payer OTHER, SELFPAY ==
[2020-09-30 11:45] VITALS: O2SAT 96
== END 2020-09-30 13:05 | disposition home or self-care (01) ==
LOC: INF 11:45
PROVIDERS: PCP Family Medicine; Visit Provider Internal Medicine Infectious Disease
DX: M86.171 Other acute osteomyelitis, right ankle and foot (principal)
CPT/HCPCS: 96365; J0878

== ENCOUNTER 2020-10-01 08:55 | Outpatient (CLI) | payer OTHER, SELFPAY ==
[2020-10-01 09:19] LABS: Basophils % 0.1 % (0.1-2.0); Eosinophils # 0.2 K/mm3 (0.0-0.4); Eosinophils % 4.1 % (0.1-12.0); Hematocrit 35.7 % (37.0-47.0); Hemoglobin 10.9 g/dL (12.2-16.2); Lymphocytes # 1.6 K/mm3 (0.7-4.5); Lymphocytes % 27.8 % (10-50); Mean Corpuscular HGB Conc 30.6 g/dL (31.8-35.4); Mean Corpuscular Hemoglobin 26.8 pg (27.0-31.2); Mean Corpuscular Volume 87.7 fl (81-99); Mean Platelet Volume 7.4 fl (7.4-10.4); Monocytes # 0.3 K/mm3 (0.1-1.0); Monocytes % 5.4 % (1.7-9.3); Neutrophils # 3.7 K/mm3 (1.8-7.8); Neutrophils % 62.5 % (37.0-80.0); Platelet Count 336 K/mm3 (142-424); Red Blood Count 4.07 M/mm3 (4.20-5.40); Red Cell Distribution Width 15.2 % (11.5-17.5); White Blood Count 5.9 K/mm3 (4.8-10.8)
[2020-10-01 09:22] VITALS: BP 129/82; PULSE 85; RESP 18; TEMP 36.7; O2SAT 97
[2020-10-01 09:28] LABS: Chloride 104 mmol/L (98-107); Potassium 3.9 mmoL/L (3.5-5.1); Sodium 139 mmol/L (136-145)
[2020-10-01 09:30] LABS: Alanine Aminotransferase 19 U/L (12-78); Aspartate Amino Transferase 20 U/L (14-36); Blood Urea Nitrogen 16 mg/dl (7-17); Creatinine Clearance Estimated 107 mL/min (50-200); Estimated Glomerular Filt Rate 73 ml/min (>60); GFR (African American) 89 ML/MIN (>60)
[2020-10-01 09:31] LABS: Albumin/Globulin Ratio 1.3 (1.1-1.8); Alkaline Phosphatase 98 U/L (38-126); Anion Gap 11.9 mEq/L (5-15); Bilirubin,Total 0.4 mg/dl (0.2-1.3); Calcium 9.4 mg/dl (8.4-10.2); Carbon Dioxide 27 mmol/L (22.0-30.0); Creatine Kinase 68 U/L (30-135); Globulin 3.1 g/dL (1.3-3.2); Glucose 113 mg/dl (74-100); Total Protein,Serum 7.1 g/dl (6.3-8.2)
[2020-10-01 09:36] LABS: C-Reactive Protein 11.7 mg/L (0-4)
[2020-10-01 10:05] VITALS: BP 145/74; PULSE 82; RESP 18; TEMP 36.7; O2SAT 97
[2020-10-01 10:13] LABS: Erythrocyte Sedimentation Rate 117 mm/hr (0-30)
== END 2020-10-01 10:25 | disposition home or self-care (01) ==
LOC: INF 08:55
PROVIDERS: Visit Provider Internal Medicine Infectious Disease
DX: M86.171 Other acute osteomyelitis, right ankle and foot (principal)
CPT/HCPCS: 80053; 82550; 85025; 85651; 86140; 96365; J0878

== ENCOUNTER 2020-10-02 09:31 | Outpatient (CLI) | payer OTHER, SELFPAY ==
[2020-10-02 09:50] VITALS: BP 116/77; PULSE 77; RESP 18; TEMP 36.8; O2SAT 97
[2020-10-02 10:20] VITALS: BP 134/72; PULSE 79; RESP 18; O2SAT 97
[2020-10-02 10:50] VITALS: BP 144/75; PULSE 77; RESP 18; O2SAT 97
[2020-10-02 11:09] VITALS: BP 140/70; PULSE 78; RESP 18; O2SAT 98
== END 2020-10-02 11:09 | disposition home or self-care (01) ==
LOC: INF 09:31
PROVIDERS: Visit Provider Internal Medicine Infectious Disease
DX: M86.171 Other acute osteomyelitis, right ankle and foot (principal)
CPT/HCPCS: 96365; J0878

== ENCOUNTER 2020-10-03 09:10 | Outpatient (CLI) | payer OTHER, SELFPAY ==
[2020-10-03 09:50] VITALS: BP 109/71; PULSE 91; RESP 17; TEMP 36.4; O2SAT 96
[2020-10-03 10:40] VITALS: BP 113/74; PULSE 86; RESP 17; O2SAT 95
== END 2020-10-03 10:45 | disposition home or self-care (01) ==
LOC: INF 09:21
PROVIDERS: Visit Provider Internal Medicine Infectious Disease
DX: M86.171 Other acute osteomyelitis, right ankle and foot (principal)
CPT/HCPCS: 96365; J0878

== ENCOUNTER 2020-10-05 11:32 | Outpatient (CLI) | payer OTHER, SELFPAY | END 2020-10-05 11:48 | disposition home or self-care (01) | LOC: INF 11:32 | PROVIDERS: Visit Provider Internal Medicine Infectious Disease | DX: Z45.2 Encounter for adjustment and management of vascular access device (principal); M86.171 Other acute osteomyelitis, right ankle and foot | CPT/HCPCS: G0463 ==

== ENCOUNTER → 2020-10-18 10:12 | Outpatient (CLI) | payer OTHER, SELFPAY ==
--- NOTE | 2020-10-18 10:22 | XR_ITS ---
PROCEDURE: XR FOOT WT BEARING RT 3V CLINICAL INDICATION: post op Follow-up surgery COMPARISON: CR XR FOOT RT 2V from 06/13/2020 CR XR FOOT RT MIN 3V from 06/13/2020 CR XR FOOT RT MIN 3V from 08/01/2020 CR XR FOOT RT MIN 3V from 08/22/2020 CR XR FOOT RT MIN 3V from 09/04/2020 CR XR FOOT RT 2V from 09/05/2020 FINDINGS: There has been interval removal the calcaneocuboid bone plate and screws. Midfoot fusion medially with orthopedic hardware remains in place not significantly changed. There is diffuse osteopenia of the midfoot with suspected bone graft at the calcaneus anteriorly. There may be an old fracture of the calcaneus inferiorly versus prominent bony spurring. There is pes planus with diffuse osteopenia. Charcot joint noted in the midfoot. IMPRESSION: Status post hardware removal otherwise no change Dictated by: Thai Meléndez MD 10/18/2020 11:30 Thai Meléndez MD in [place] 10/18/2020 11:30
[2020-10-18 11:09] LABS: Basophils % 0.1 % (0.1-2.0); Eosinophils # 0.1 K/mm3 (0.0-0.4); Eosinophils % 1.5 % (0.1-12.0); Hematocrit 36.3 % (37.0-47.0); Hemoglobin 11.5 g/dL (12.2-16.2); Lymphocytes # 1.9 K/mm3 (0.7-4.5); Lymphocytes % 28.5 % (10-50); Mean Corpuscular HGB Conc 31.6 g/dL (31.8-35.4); Mean Corpuscular Hemoglobin 26.8 pg (27.0-31.2); Mean Corpuscular Volume 84.9 fl (81-99); Mean Platelet Volume 7.9 fl (7.4-10.4); Monocytes # 0.5 K/mm3 (0.1-1.0); Monocytes % 6.8 % (1.7-9.3); Neutrophils # 4.2 K/mm3 (1.8-7.8); Neutrophils % 63.1 % (37.0-80.0); Platelet Count 323 K/mm3 (142-424); Red Blood Count 4.28 M/mm3 (4.20-5.40); Red Cell Distribution Width 16.2 % (11.5-17.5); White Blood Count 6.6 K/mm3 (4.8-10.8)
[2020-10-18 11:40] LABS: Erythrocyte Sedimentation Rate 24 mm/hr (0-30)
[2020-10-18 11:55] LABS: Chloride 101 mmol/L (98-107); Sodium 139 mmol/L (136-145)
[2020-10-18 11:56] LABS: Potassium 3.9 mmoL/L (3.5-5.1)
[2020-10-18 11:58] LABS: Alanine Aminotransferase 17 U/L (12-78); Albumin Level 3.8 g/dl (3.5-5.0); Albumin/Globulin Ratio 1.3 (1.1-1.8); Alkaline Phosphatase 141 U/L (38-126); Anion Gap 10.9 mEq/L (5-15); Aspartate Amino Transferase 24 U/L (14-36); Bilirubin,Total 0.3 mg/dl (0.2-1.3); Blood Urea Nitrogen 25 mg/dl (7-17); Carbon Dioxide 31 mmol/L (22.0-30.0); Estimated Glomerular Filt Rate 57 ml/min (>60); GFR (African American) 68 ML/MIN (>60); Globulin 2.9 g/dL (1.3-3.2); Total Protein,Serum 6.7 g/dl (6.3-8.2)
[2020-10-18 11:59] LABS: Glucose 77 mg/dl (74-100)
[2020-10-18 12:04] LABS: C-Reactive Protein 10.4 mg/L (0-4)
== END ==
PROVIDERS: PCP Family Medicine; Visit Provider Podiatrist
DX: Z98.890 Other specified postprocedural states (principal)
CPT/HCPCS: 36415; 73630; 80053; 85025; 85651; 86140

== ENCOUNTER 2020-11-22 14:30 | Outpatient (RCR) | payer OTHER, SELFPAY ==
--- NOTE | 2020-09-20 11:41 | HMH.PTOPEV ---
PT Outpatient Evaluation Rehab PT Outpatient Evaluation Start: 09/20/20 10:38 Freq: Status: Active Protocol: Document 09/20/20 11:19 SANTAALF (Rec: 09/20/20 11:41 ROBIN [id number]) Electronically Signed By Andrew Barry, PT 09/20/20 11:19 Outpatient Therapy Subjective History Subjective History Patient is a 60 year old female presenting to outpatient PT with reports of R foot/ankle pain and decreased mobility S/P R foot ORIF for revision of malunion arthrodesis. Patient reports that she under went initial surgery approximately 43 years ago secondary to severe pes planus. She has currently been receiving wound care treatment secondary to open wound/infection. She has most recently been diagnosed with PE. PT discussed with MD progression of weight bearing status. Patient entered clinic in wheel chair today, but is cleared to progress partial weight bearing in treatment. Comorbidities include hx of HTN and inguinal hernia repair. Chief Complaint Pain,Stiff,Swelling, Paresthesia,Weakness Symptom Type Ache,Dull Symptoms Relieved By Rest/Positioning,Ice,Elevation Symptoms Aggravated By Physical Activity Prior Functional Limitations Standing,Walking Current Functional Limitations Housework,Standing,Squatting, Recreation Activity,Walking, Stairs,Balance Level of pain today (0-10) 3 Pain scale - at its best (0-10) 3 Pain scale - at its worst (0-10) 5 Ankle/Foot Eval Assistive Device Ambulation Assistive Device Rolling Walker Palpation Tenderness right Ankle/Foot Palpation Findings Tenderness Ankle/Foot Palpation Overall Comment surgical incision 3/4 ATF TTP positive ROM Ankle/Foot Dorsiflexion w/Knee Extended -25 Active Range Motion (degrees) Ankle/Foot Dorsiflexion w/Knee Extended -20 Passive Range (degrees) Ankle/Foot Plantar Flexion Active Range 32 of Motion (degrees) Ankle/Foot Plantar Flexion Passive Range 38 of Motion (degrees) Ankle/Foot Eversion Active Range of 0 Motion (degrees)
== END 2020-11-22 14:35 | disposition home or self-care (01) ==
LOC: PT 14:30
PROVIDERS: Visit Provider Podiatrist
DX: Z98.890 Other specified postprocedural states (principal); T84.498A Other mechanical complication of other internal orthopedic devices, implants and grafts, initial encounter; M25.571 Pain in right ankle and joints of right foot
CPT/HCPCS: 97010; 97014; 97016; 97035; 97110; 97112; 97116; 97140; 97163; 97164; 97760; G0283

== ENCOUNTER 2020-12-06 15:41 | Emergency (ER) | payer OTHER, SELFPAY ==
[2020-12-06 16:17] VITALS: BP 146/77; PULSE 85; RESP 16; TEMP 37.2; O2SAT 95; BMI 33.6
[2020-12-06 16:28] LABS: Adenovirus,PCR Not Detected (NotDetected); Bordetella Pertussis Not Detected (NotDetected); Chlamydophila Pneumoniae, PCR Not Detected (NotDetected); Coronavirus 19, PCR Not Detected (NotDetected); Coronavirus 229E Not Detected (NotDetected); Coronavirus NL63 Not Detected (NotDetected); Coronavirus OC43 Not Detected (NotDetected); Coronovirus HKU1,PCR Not Detected (NotDetected); Human Metapneumovirus Not Detected (NotDetected); Influenza A, PCR Not Detected (NotDetected); Influenza AH1, 2009 Not Detected (NotDetected); Influenza AH1, PCR Not Detected (NotDetected); Influenza AH3,PCR Not Detected (NotDetected); Influenza B, PCR Not Detected (NotDetected); Mycoplasma Pneumoniae, PCR Not Detected (NotDetected); Parainfluenza 1, PCR Not Detected (NotDetected); Parainfluenza 2, PCR Not Detected (NotDetected); Parainfluenza 3, PCR Not Detected (NotDetected); Parainfluenza 4, PCR Not Detected (NotDetected); Respiratory Syncytial Virus Not Detected (NotDetected)
--- NOTE | 2020-12-06 16:41 | HMH.EDUTC ---
[facility] [place] Clinical Impression: Sinusitis Qualifiers: Sinusitis location: unspecified location Chronicity: acute Recurrence: non-recurrent Qualified Code(s): J01.90 - Acute sinusitis, unspecified Disposition: Home, Self-Care Condition on Discharge: Good Instructions: DI for Sinusitis Additional Instructions: Drink plenty of fluids. Take tylenol or ibuprofen for pain or fever. Take the medications as directed. Follow up with your regular doctor. GO TO THE ER FOR ANY WORSENING SYMPTOMS Prescriptions: Guaifenesin/Dextromethorphan [Guaifenesin-Dm 100-10 mg/5 ml] 5 ml PO Q6HP PRN #240 liquid PRN Reason: Congestion Transmission Status: Received by [facility] predniSONE [Prednisone 20mg Tab] 20 mg PO BID 5 Days #10 tab Transmission Status: Received by [facility] Azithromycin [Z-Vicente 250mg Tab*] 250 mg PO UD DOSE PK #6 tab Transmission Status: Received by [facility] Referrals: Arturo Estevez MD [Primary Care Provider] - Time of Disposition: 16:50 Medical Decision Making - Medical Records Medical records reviewed: No: I reviewed the patient's medical records. - Yunier Inquiry Pt receiving controlled substance: No Vital Signs: 12/06/20 16:17 12/06/20 17:03 Temperature 99 F 0 F L Temperature Source Oral Pulse Rate 85 Pulse Rate [Left] 85 Respiratory Rate 16 18 Blood Pressure 146/77 H Blood Pressure [Right Arm] 146/77 H Blood Pressure Mean [Right Arm] 100 02 Sat by Pulse Oximetry 95 Oxygen Delivery Method Room Air - Lab Data Lab Results 12/06/20 14:20: Chlamy pneumoniae PCR Not detected, Adenovirus (PCR) Not detected, B. pertussis DNA (PCR) Not detected, Coronavirus OC43 (PCR) Not detected, Coronavirus HKU1 (PCR) Not detected, Coronavirus 229E (PCR) Not detected, SARS-CoV-2 (PCR) Not detected, Coronavirus NL63 (PCR) Not detected, Human Metapneumovir PCR Not detected, Influenza A (H1) PCR Not detected, Influ A (H1N1/09) PCR Not detected, Influenza A (H3) PCR Not detected, Influenza Type A (PCR) Not detected, Influenza Type B (PCR) Not detected, M. pneumoniae (PCR) Not detected, Parainfluenza 1 (PCR) Not detected, Parainfluenza 2 (PCR) Not detected, Parainfluenza 3 (PCR) Not detected, Parainfluenza 4 (PCR) Not detected, RSV (PCR) Not detected, Entero/Rhino (PCR) Detected A 12/06/20 16:20: Strep Scn Rapid Clinic Negative Orders (Tests/Meds): ORDERS Category Date Time Status Strep Screen Confirmation Stat Micro 12/06/20 16:20 Received [facility] [place] HPI - General Stated complaint: HEAD CONGESTION,COUGH,WANTS COVID TEST Time Seen by Provider: 12/06/20 16:41 Mode of Arrival: Ambulatory Source of Information: Patient Limitations: No Limitations Description of Symptoms (Recalled from Triage Doc. by RN): pt c/o a cough, sore throat, head congestion, sinus pressure and fatigue. HEENT Symptoms (Recalled from RN notes): Yes (sinus congestion and sore throat) Resp Symptoms (Recalled from RN notes): Yes (cough) Skin Symptoms (Recalled from RN notes): No MS Symptoms (Recalled from RN notes): No Functional Status (Recalled from RN notes): fatigue - History of Present Illness Provider Complaint: She states that since yesterday she has had sore throat, sinus congestion, head ache and ear pain. She denies a significant cough. She has not been vacinated against covid-19. - Related Data Home Medications Medication Instructions Recorded Confirmed venlafaxine 150 mg 150 mg PO DAILY cap 07/13/17 11/29/20 capsule,extended release 24 hr Multivitamin [Multivitamins] 1 each PO DAILY 08/19/17 11/29/20 ascorbate calcium (vitamin C) 500 500 mg PO DAILY 04/24/20 11/29/20 mg tablet ibuprofen 200 mg capsule 200 mg PO Q6H PRN 04/24/20 11/29/20 Cholecalciferol (Vitamin D3) 1,250 mcg PO WEEKLY 06/07/20 11/29/20 [Dialyvite Vitamin D3 Max] hydroCHLOROthiazide [HCTZ 25mg 25 mg PO DAILY 06/07/20 11/29/20 tab] Cholecalciferol (Vitamin D3) 4,000 unit P
[2020-12-06 17:03] VITALS: BP 146/77; PULSE 85; RESP 18; TEMP -17.7; TEMP 0
[2020-12-06 18:51] LABS: Rhinovirus/Enterovirus Detected (NotDetected)
[2020-12-06 19:12] LABS: UTC Strep Screen (Rapid) Negative (Negative)
== END 2020-12-06 17:11 | disposition home or self-care (01) ==
PROVIDERS: Emergency Provider Nurse Practitioner Family; PCP Family Medicine
DX: J01.90 Acute sinusitis, unspecified (principal); B34.8 Other viral infections of unspecified site; I10 Essential (primary) hypertension; E78.5 Hyperlipidemia, unspecified; F33.1 Major depressive disorder, recurrent, moderate; K21.9 Gastro-esophageal reflux disease without esophagitis; Z79.899 Other long term (current) drug therapy; Z20.822 Contact with and (suspected) exposure to COVID-19
CPT/HCPCS: 87581; 87633; 87798; 87880; 99203; G0463

== ENCOUNTER 2021-02-26 18:54 | Emergency (ER) | payer OTHER, SELFPAY ==
[2021-02-26 18:55] VITALS: BP 154/78; PULSE 88; RESP 19; TEMP 37; O2SAT 96; BMI 33.3
--- NOTE | 2021-02-26 20:08 | HMH.EDUTC ---
[facility] – [place] Disposition Clinical Impression: Bronchitis Sinusitis Qualifiers: Sinusitis location: unspecified location Chronicity: unspecified Qualified Code(s): J32.9 - Chronic sinusitis, unspecified Disposition: Home, Self-Care Condition on Discharge: Good Instructions: Sinusitis, DI for Sinusitis, DI for Acute Bronchitis Additional Instructions: ? Start antibiotic today. Be sure to complete entire prescription even if feeling better ? Monitor temp. Tylenol every 4 hours as needed and / or ibuprofen every 6 hours as needed ( As long as your primary care physician has told you that it ok to take both. For fever/aches/pains ER if no less than 101 despite Tylenol or Motrin ? Humidifier/vaporizer or hot steamy shower ? Inhaler every 4-6 hours as needed like we discussed. If unsure how to use it, ask pharmacist to demonstrate how. Should help open airways and improve cough, wheezing, and shortness of breath ? Mucinex for your cough Be sure to drink lots of water. *Start steroid today. Helps with inflammation therefore, cough and wheezing. Follow directions on the package. Reviewed side effects. Patient reports taking them before. Follow up IMMEDIATELY for new or worsening of symptoms OR no noticeable improvement over the next 48-72 hours. 911 immediately for any life threatening symptoms such as chest pain or difficulty breathing Prescriptions: Doxycycline Monohydrate [Doxycycline Grainger 100mg Tab] 100 mg PO Q12 7 Days #14 tab Transmission Status: Pending to [facility] [Mucinex 600mg tablet] 1 - 2 tab PO Q12H PRN #20 tab PRN Reason: Congestion Transmission Status: Pending to [facility] predniSONE [Prednisone 20mg Tab] 20 mg PO BID 5 Days #10 tab Transmission Status: Pending to [facility] Referrals: Arturo Estevez MD [Primary Care Provider] - As needed Time of Disposition: 20:23 Medical Decision Making - Yunier Inquiry Pt receiving controlled substance: No Yunier was queried for this patient: No Vital Signs: 02/26/21 18:55 Temperature 98.6 F Temperature Source Oral Pulse Rate [Left Radial] 88 Respiratory Rate 19 Blood Pressure [Right Arm] 154/78 H Blood Pressure Mean [Right Arm] 103 Blood Pressure Source [Right Arm] Automatic Cuff Blood Pressure Position [Right Arm] Sitting 02 Sat by Pulse Oximetry 96 Oxygen Delivery Method Room Air Orders (Tests/Meds): ORDERS Category Date Time Status Covid-19 Nasal PCR ([facility]) Routine Lab 02/26/21 19:46 Received Medical Decision Narrative: Patient states that she has taken Doxy and prednisone in the past without complications discussed CXR and patient declined at this time [facility] – [place] HPI - General Stated complaint: soa, weakness Time Seen by Provider: 02/26/21 20:09 Mode of Arrival: Ambulatory Source of Information: Patient Limitations: No Limitations Description of Symptoms (Recalled from Triage Doc. by RN): deep productive cough (yellow/white/thick) over 1 week and fatigue. HEENT Symptoms (Recalled from RN notes): No Resp Symptoms (Recalled from RN notes): Yes Skin Symptoms (Recalled from RN notes): No MS Symptoms (Recalled from RN notes): No Functional Status (Recalled from RN notes): na - History of Present Illness Provider Complaint: Patient states that she has been having deep cough that at times she is able to cough up yellowish colored mucous for over a week but is blowing the same thing from her nose States that she feels like it is draining in her throat and making her throat irritated States that she was worried that it would settle up in her lungs so she wanted to come and get checked - Related Data Home Medications Medication Instructions Recorded Confirmed venlafaxine 150 mg 150 mg PO DAILY cap 07/13/17 11/29/20 capsule,extended release 24 hr Multivitamin [Multivitamins] 1 each PO DAILY 08/19/17 11/29/20 ascorbate calcium (vitamin C) 500 500 mg PO DAILY 04/24/20 11/29/20 mg tablet ibup
[2021-02-26 20:25] VITALS: BP 154/78; PULSE 88; RESP 19; TEMP 37; O2SAT 96
== END 2021-02-26 20:59 | disposition home or self-care (01) ==
PROVIDERS: Emergency Provider Nurse Practitioner; PCP Family Medicine
DX: J20.9 Acute bronchitis, unspecified (principal); J32.9 Chronic sinusitis, unspecified; Z20.822 Contact with and (suspected) exposure to COVID-19; I10 Essential (primary) hypertension; E78.5 Hyperlipidemia, unspecified; K21.9 Gastro-esophageal reflux disease without esophagitis; Z79.899 Other long term (current) drug therapy
CPT/HCPCS: 99202; C9803; G0463; U0003; U0005

== ENCOUNTER → 2021-04-26 15:07 | Outpatient (CLI) | payer OTHER, SELFPAY ==
--- NOTE | 2021-04-26 15:11 | MM_ITS ---
PROCEDURE INFORMATION: Exam: MG Bilateral Screening 3D Mammography Exam date and time: 04/26/2021 3:11 PM Age: 60 years old Clinical indication: Encounter for screening mammogram for malignant neoplasm of breast TECHNIQUE: Imaging protocol: Bilateral screening tomosynthesis and 2D mammography including computer-aided detection (CAD) when performed. COMPARISON: 1. MG MM DIG SCREENING MAMM BI W/CAD 04/24/2020 8:28 AM 2. MG SCBI MM Dig screening mamm BI w/CAD 09/09/2017 5:16 PM FINDINGS: MAMMOGRAPHY: Breast composition: The breast tissue is composed of scattered areas of fibroglandular density. Mass: None. Architectural distortion: None. Calcifications: No suspicious calcifications. Asymmetric density: None. Skin thickening: None. Axillary adenopathy: None. IMPRESSION: No mammographic evidence of malignancy. Annual screening is recommended unless otherwise clinically indicated. ASSESSMENT: BI-RADS Category 1: Negative
== END ==
PROVIDERS: PCP Family Medicine; Visit Provider Nurse Practitioner Obstetrics & Gynecology
DX: Z12.31 Encounter for screening mammogram for malignant neoplasm of breast (principal)
CPT/HCPCS: 77063; 77067

== ENCOUNTER → 2021-06-10 10:26 | Outpatient (CLI) | payer OTHER, SELFPAY ==
--- NOTE | 2021-06-10 10:44 | XR_ITS ---
FINAL REPORT CLINICAL HISTORY: marcia foot/ankle pain FINDINGS: RIGHT FOOT Three views of the right foot demonstrate no acute fracture or dislocation. There are 2 orthopedic screws in the calcaneus. There is a sideplate and screws securing the medial intertarsal joints. There is marked pes planus deformity. The soft tissues are unremarkable. IMPRESSION: Postoperative changes as described with marked pes planus deformity. Reviewed, Interpreted and Dictated by Pedro Webb MD Transcribed by Amy Hollingsworth Authenticated by Pedro Webb MD on 06/10/2021 12:17:39 PM [facility]
--- NOTE | 2021-06-10 10:44 | XR_ITS ---
FINAL REPORT CLINICAL HISTORY: marcia foot/ankle pain FINDINGS: RIGHT ANKLE 3 views of the right ankle were obtained. There is no acute fracture or dislocation. There is abnormal sclerosis and narrowing of the lateral mortise. There is some sclerosis in the lateral talar dome. Extensive orthopedic hardware is present bridging the intertarsal joints. Soft tissues are unremarkable. IMPRESSION: Postoperative and hypertrophic changes as described. Reviewed, Interpreted and Dictated by Pedro Webb MD Transcribed by Amy Hollingsworth Authenticated by Pedro Webb MD on 06/10/2021 12:18:16 PM [facility]
--- NOTE | 2021-06-10 10:44 | XR_ITS ---
FINAL REPORT CLINICAL HISTORY: marcia foot/ankle pain FINDINGS: LEFT ANKLE Three views demonstrate no acute fracture or dislocation. There is abnormal sclerosis and lucency in the lateral talar dome which is concerning for a large osteochondral lesion. The defect measures approximately 1.0 cm. There are mild hypertrophic changes at the anterior margin of the mortise. The soft tissues are unremarkable. IMPRESSION: Approximate 1 cm sclerosis and lucency in the lateral talar dome concerning for large osteochondral lesion. Hypertrophic changes at the anterior margin the mortise. Reviewed, Interpreted and Dictated by Pedro Webb MD Transcribed by Amy Hollingsworth Authenticated by Pedro Webb MD on 06/10/2021 12:18:[address] [facility]
--- NOTE | 2021-06-10 10:44 | XR_ITS ---
FINAL REPORT CLINICAL HISTORY: marcia foot/ankle pain FINDINGS: LEFT FOOT Three views of the left foot demonstrate no acute fracture or dislocation. There are orthopedic screws securing the posterior subtalar joint and the calcaneocuboid joint. There is a pes planus deformity. There are moderate hypertrophic changes over the dorsal intertarsal joints. The soft tissues are unremarkable. IMPRESSION: Postoperative and hypertrophic changes as described. Reviewed, Interpreted and Dictated by Pedro Webb MD Transcribed by Amy Hollingsworth Authenticated by Pedro Webb MD on 06/10/2021 12:17:35 PM [facility]
== END ==
PROVIDERS: PCP Family Medicine; Visit Provider Podiatrist
DX: Z98.890 Other specified postprocedural states (principal); M25.572 Pain in left ankle and joints of left foot; M25.571 Pain in right ankle and joints of right foot
CPT/HCPCS: 73610; 73630

== ENCOUNTER → 2021-07-11 12:19 | Outpatient (CLI) | payer OTHER, SELFPAY ==
[2021-07-11 13:26] LABS: Alanine Aminotransferase 15 U/L (12-78); Albumin Level 4.4 g/dl (3.5-5.0); Alkaline Phosphatase 92 U/L (38-126); Aspartate Amino Transferase 21 U/L (14-36); Bilirubin,Direct 0.3 mg/dl (0.0-0.4); Bilirubin,Indirect 0.4 mg/dL (0.0-0.9); Bilirubin,Total 0.7 mg/dl (0.2-1.3); Bilirubin,Unconjugated 0.3 mg/dL (0.0-1.1); Chol/HDL Ratio 4.1 (1-3.5); Cholesterol 237 mg/dl (140-200); HDL Cholesterol 58 mg/dl (40-60); Total Protein,Serum 7.2 g/dl (6.3-8.2); Triglycerides 146 mg/dl (30-150); VLDL Cholesterol 29 mg/dL (0-40)
[2021-07-11 13:37] LABS: Direct LDL Cholesterol 122.98 mg/dL (100-129)
== END ==
PROVIDERS: Visit Provider Nurse Practitioner Family
DX: I27.20 Pulmonary hypertension, unspecified (principal); E78.2 Mixed hyperlipidemia; R60.0 Localized edema
CPT/HCPCS: 36415; 80061; 80076

== ENCOUNTER → 2021-12-24 15:04 | Outpatient (CLI) | payer OTHER, SELFPAY ==
[2021-12-24 16:13] LABS: Glucose,Fasting 112 mg/dl (74-100)
[2021-12-24 18:24] LABS: Glucose 1 Hour 133 mg/dL (74-100)
[2021-12-24 18:32] LABS: T4 (Thyroxine) 10.1 ug/dl (5.53-11.0); Triiodothryronine (T3) Uptake 30 % (23.5-40.5)
[2021-12-24 18:45] LABS: Thyroid Stimulating Hormone 2.66 uIU/mL (0.465-4.68)
== END ==
PROVIDERS: PCP Family Medicine; Visit Provider Nurse Practitioner Obstetrics & Gynecology
DX: R53.83 Other fatigue (principal)
CPT/HCPCS: 36415; 82951; 84436; 84443; 84479

== ENCOUNTER 2022-03-10 13:31 | Emergency (ER) | payer OTHER, SELFPAY ==
[2022-03-10 13:31] VITALS: BP 126/75; PULSE 91; RESP 21; TEMP 36.9; O2SAT 96; BMI 34.7
[2022-03-10 14:48] LABS: UTC Influenza A Antigen Negative (Negative)
[2022-03-10 14:49] LABS: UTC Influenza B Antigen Negative (Negative)
--- NOTE | 2022-03-10 14:52 | EXP.UTC ---
Discharge Plan Disposition Patient Disposition: Home, Self-Care Condition: Good Prescriptions Prescriptions: New amoxicillin-pot clavulanate 875-125 mg Tablet 1 tab PO Q12H Qty: 20 0RF prednisone 20 mg tablet 20 mg PO BID Qty: 10 0RF benzonatate 100 mg capsule 100 mg PO TID PRN (Reason: cough) Qty: 30 0RF No Action nabumetone 500 mg tablet 500 mg PO BID PRN vitamin B complex [B Complex-Vitamin B12] Tablet 1 tab PO DAILY hydrochlorothiazide 25 mg tablet 25 mg PO DAILY Qty: 90 3RF losartan 50 mg tablet 50 mg PO DAILY Qty: 90 3RF venlafaxine [Effexor XR] 150 mg capsule,extended release 24hr 150 mg PO DAILY ascorbate calcium (vitamin C) 500 mg tablet 500 mg PO DAILY ibuprofen 200 mg capsule 200 mg PO Q6H PRN (Reason: pain) atorvastatin [Lipitor] 10 mg tablet 10 mg PO DAILY Qty: 30 5RF phentermine [Adipex-P] 37.5 mg tablet 37.5 mg PO DAILY Qty: 30 0RF Rx Instructions: must administer 30 minutes before or 1-2 hours after breakfast multivitamin 1 EACH capsule 1 each PO DAILY cholecalciferol (vitamin D3) 1,000 UNIT capsule 4,000 unit PO DAILY Rx Instructions: takes in gummy form 4000 units daily zinc 50 MG tablet 50 mg PO DAILY Rx Instructions: takes 2 gummies daily Referrals Follow up/Referrals: Arturo Estevez MD [Primary Care Provider] - See instructions Activity Restrictions/Add. Instructions Additional Instructions/Restrictions: *Monitor Temp, Over the counter Motrin or Tylenol as directed/as needed Tylenol every 4 hours and Motrin every 6 hours (as long as your family doctor has told you that you can take it) for fever or pain. and straight to ER if unable to lower temp less than 101.0 after medication given *Warm salt water gargles may help to soothe the throat *Throat Lozenges? *Warm fluids like tea with honey may help to soothe the throat? *Sleep elevated *Humidifier/Vaporizer Take medication as prescribed Follow up IMMEDIATELY for new or worsening symptoms or no Noticeable improvement over the next 48-72 hours. 911 for difficulty breathing or swallowing You were tested for today for COVID19 your test result should be back in the next 24-48 hours, you may check your results on the [facility] My Health Portal Clinical Impressions Clinical Impression: Sinusitis Qualifiers: Sinusitis location: unspecified location Chronicity: unspecified Qualified Code(s): J32.9 - Chronic sinusitis, unspecified Instructions Patient Instructions: Sinusitis, DI for Sinusitis Discharge ED Provider: Nereida Shah [facility] [place] HPI General Stated complaint: covid test Time Seen by Provider: 03/10/22 14:53 History of Present Illness Provider Complaint: Patient states that she has been sick for about 2 weeks States that she has been treating it with OTC medications but they havent helped much States that she has been having sinus pain and pressure, cough, and drainage in the back of her throat states that today when she was still not feeling well she came in States that she also wanted to get checked for COVID to make sure she hasnt had it Related Data Home Medications Medication Instructions Recorded Confirmed venlafaxine 150 mg 150 mg PO DAILY Depression 07/13/17 12/10/21 capsule,extended release 24 hr (Effexor XR) multivitamin 1 each PO DAILY supplement 08/19/17 12/10/21 ascorbate calcium (vitamin C) 500 500 mg PO DAILY Supplement 04/24/20 12/10/21 mg tablet ibuprofen 200 mg capsule 200 mg PO Q6H PRN pain 04/24/20 12/10/21 cholecalciferol (vitamin D3) 25 4,000 unit PO DAILY Supplement 09/25/20 12/10/21 mcg (1,000 unit) capsule zinc 50 mg tablet 50 mg PO DAILY Supplement 09/25/20 12/10/21 nabumetone 500 mg tablet 500 mg PO BID PRN 07/08/21 12/10/21 vitamin B complex (B 1 tab PO DAILY 07/08/21 12/10/21 Complex-Vitamin B12 tablet) Previous Rx's Medication Instructions Record
[2022-03-10 15:31] VITALS: BP 126/75; PULSE 91; RESP 21; TEMP 36.9; O2SAT 96
== END 2022-03-10 15:32 | disposition home or self-care (01) ==
PROVIDERS: Emergency Provider Nurse Practitioner; PCP Family Medicine
DX: J32.9 Chronic sinusitis, unspecified (principal); I27.20 Pulmonary hypertension, unspecified; I50.32 Chronic diastolic (congestive) heart failure; E78.5 Hyperlipidemia, unspecified; R51.9 Headache, unspecified; Z20.822 Contact with and (suspected) exposure to COVID-19; Z79.1 Long term (current) use of non-steroidal anti-inflammatories (NSAID); Z79.52 Long term (current) use of systemic steroids; Z79.899 Other long term (current) drug therapy; Z91.018 Allergy to other foods; Z87.891 Personal history of nicotine dependence
CPT/HCPCS: 87804; 99213; C9803; G0463; U0003; U0005

== ENCOUNTER 2022-06-08 21:09 | Emergency (ER) | payer BC, SELFPAY ==
[2022-06-08 21:11] VITALS: BP 156/117; PULSE 94; RESP 16; TEMP 36.6; O2SAT 96; BMI 32.0
[2022-06-08 21:56] VITALS: BP 146/96; PULSE 85; RESP 18; O2SAT 96
[2022-06-08 22:00] VITALS: BP 138/93; PULSE 90; RESP 18; O2SAT 94
--- NOTE | 2022-06-08 22:20 | HMH.EDABDPAI ---
Discharge Plan Disposition Patient Disposition: Home, Self-Care Prescriptions Prescriptions: New levofloxacin 500 mg tablet 500 mg PO DAILY Qty: 10 0RF metronidazole 500 mg Tablet 500 mg PO TID Qty: 30 0RF No Action nabumetone 500 mg tablet 500 mg PO BID PRN vitamin B complex [B Complex-Vitamin B12] Tablet 1 tab PO DAILY hydrochlorothiazide 25 mg tablet 25 mg PO DAILY Qty: 90 3RF losartan 50 mg tablet 50 mg PO DAILY Qty: 90 3RF venlafaxine [Effexor XR] 150 mg capsule,extended release 24hr 150 mg PO DAILY ascorbate calcium (vitamin C) 500 mg tablet 500 mg PO DAILY ibuprofen 200 mg capsule 200 mg PO Q6H PRN (Reason: pain) phentermine [Adipex-P] 37.5 mg tablet 37.5 mg PO DAILY Qty: 30 0RF Rx Instructions: must administer 30 minutes before or 1-2 hours after breakfast atorvastatin [Lipitor] 10 mg tablet 10 mg PO DAILY Qty: 90 3RF multivitamin 1 EACH capsule 1 each PO DAILY cholecalciferol (vitamin D3) 1,000 UNIT capsule 4,000 unit PO DAILY Rx Instructions: takes in gummy form 4000 units daily zinc 50 MG tablet 50 mg PO DAILY Rx Instructions: takes 2 gummies daily prednisone 20 mg tablet 20 mg PO BID Qty: 10 0RF benzonatate 100 mg capsule 100 mg PO TID PRN (Reason: cough) Qty: 30 0RF Referrals Follow up/Referrals: Arturo Estevez MD [Primary Care Provider] - See instructions Clinical Impressions Clinical Impression: Diverticulitis large intestine Instructions Patient Instructions: DI for Diverticulitis Discharge ED Provider: Jethro Sandoval Abdominal Pain HPI General Chief Complaint: Abdominal Pain Stated Complaint: abdm pain and constipation Time Seen by Provider: 06/08/22 22:20 Mode of Arrival: Ambulatory Source of Information: Patient, Spouse and Medical Record Limitations: No Limitations Description of Symptoms (Recalled from ER Triage Doc. by RN): pt states that she has had issues with constipation since may 14 pt states that she has been severly constipated for 2 days. the pt has tried miralax, fleetz enema, and a colon clense and had a minimal results. History of Present Illness HPI narrative: new onset of constipation over the last few weeks - has used meds as noted above - no fever or vomiting but has some abd pain and nl colonoscopy 3 yrs ago complaint: abdominal pain Onset (ago): day(s) Consistency: intermittent Location: LLQ Severity: moderate Quality: dull Associated symptoms: constipation Related Data Home Medications Medication Instructions Recorded Confirmed venlafaxine 150 mg 150 mg PO DAILY Depression 07/13/17 04/07/22 capsule,extended release 24 hr (Effexor XR) multivitamin 1 each PO DAILY supplement 08/19/17 04/07/22 ascorbate calcium (vitamin C) 500 500 mg PO DAILY Supplement 04/24/20 04/07/22 mg tablet ibuprofen 200 mg capsule 200 mg PO Q6H PRN pain 04/24/20 04/07/22 cholecalciferol (vitamin D3) 25 4,000 unit PO DAILY Supplement 09/25/20 04/07/22 mcg (1,000 unit) capsule zinc 50 mg tablet 50 mg PO DAILY Supplement 09/25/20 04/07/22 nabumetone 500 mg tablet 500 mg PO BID PRN 07/08/21 04/07/22 vitamin B complex (B 1 tab PO DAILY 07/08/21 04/07/22 Complex-Vitamin B12 tablet) Previous Rx's Medication Instructions Recorded hydrochlorothiazide 25 mg tablet 25 mg PO DAILY #90 tabs 07/08/21 losartan 50 mg tablet 50 mg PO DAILY wightloss #90 tabs 07/08/21 benzonatate 100 mg capsule 100 mg PO TID PRN cough #30 caps 03/10/22 prednisone 20 mg tablet 20 mg PO BID #10 tabs 03/10/22 atorvastatin 10 mg tablet (Lipitor) 10 mg PO DAILY #90 tabs 03/24/22 phentermine 37.5 mg tablet 37.5 mg PO DAILY #30 tabs 04/07/22 (Adipex-P) levofloxacin 500 mg tablet 500 mg PO DAILY #10 tabs 06/09/22 metronidazole 500 mg tablet 500 mg PO TID #30 tabs 06/09/22 Allergies Allergy/AdvReac Type Severity Reaction Status Date / Time avocado [AVOCADO] Allerg
--- NOTE | 2022-06-08 22:22 | CT_ITS ---
PROCEDURE INFORMATION: Exam: CT Abdomen And Pelvis With Contrast Exam date and time: 06/08/2022 10:46 PM Age: 62 years old Clinical indication: Abdominal pain; Additional info: Abd pain TECHNIQUE: Imaging protocol: Computed tomography of the abdomen and pelvis with contrast. Radiation optimization: All CT scans at this facility use at least one of these dose optimization techniques: automated exposure control; mA and/or kV adjustment per patient size (includes targeted exams where dose is matched to clinical indication); or iterative reconstruction. Contrast material: ISOVUE; Contrast volume: 75 ml; Contrast route: IV; COMPARISON: CT ANGIO CHEST 09/03/2020 6:46 AM FINDINGS: Lungs: Lung bases are clear. Diaphragm: Small sliding hiatal hernia. Liver: Normal. No mass. Gallbladder and bile ducts: Normal. No calcified stones. No ductal dilation. Pancreas: Normal. No ductal dilation. Spleen: Normal. No splenomegaly. Adrenal glands: Normal. No mass. Kidneys and ureters: Normal. No hydronephrosis. Stomach and bowel: Thickening of the proximal sigmoid colon, with trace pericolic inflammatory stranding. The left colon is full of formed stool, with fluid filling the transverse colon and ascending colon. Appendix: Appendix is normal. Intraperitoneal space: No free air. No abscess. Trace free fluid in the left pelvis. Vasculature: Unremarkable. No abdominal aortic aneurysm. Lymph nodes: Unremarkable. No enlarged lymph nodes. Urinary bladder: Unremarkable as visualized. Reproductive: Unremarkable as visualized. Bones/joints: No acute osseous abnormality. Trace retrolisthesis at L2-L3 and trace anterolisthesis at L4-L5. Soft tissues: Small fat containing umbilical and left inguinal hernias. IMPRESSION: 1. Thickening of the proximal sigmoid colon, with trace pericolic inflammatory stranding. Few diverticula are here, and favor diverticulitis over colitis. As an underlying malignancy cannot be entirely excluded, a follow-up examination after a course of treatment is recommended if clinically warranted. 2. The left colon is full of formed stool, with fluid filling the transverse colon and ascending colon. 3. Trace free fluid in the left pelvis.
[2022-06-08 22:28] LABS: Basophils # 0.1 K/mm3 (0-0.2); Basophils % 0.6 % (0.1-2.0); Eosinophils # 0.1 K/mm3 (0.0-0.4); Eosinophils % 1.6 % (0.1-12.0); Hematocrit 43.6 % (37.0-47.0); Hemoglobin 14.1 g/dL (12.2-16.2); Lymphocytes % 25.7 % (10-50); Mean Corpuscular HGB Conc 32.4 g/dL (31.8-35.4); Mean Corpuscular Hemoglobin 30.3 pg (27.0-31.2); Mean Corpuscular Volume 93.6 fl (81-99); Monocytes # 0.4 K/mm3 (0.1-1.0); Monocytes % 4.6 % (1.7-9.3); Neutrophils # 5.3 K/mm3 (1.8-7.8); Neutrophils % 67.6 % (37.0-80.0); Platelet Count 310 K/mm3 (142-424); Red Blood Count 4.65 M/mm3 (4.20-5.40); Red Cell Distribution Width 14.3 % (11.5-17.5); White Blood Count 7.8 K/mm3 (4.8-10.8)
[2022-06-08 22:30] VITALS: BP 163/92; PULSE 82; RESP 20; O2SAT 98
[2022-06-08 22:35] LABS: Alanine Aminotransferase 22 U/L (12-78); Albumin Level 4.2 g/dl (3.5-5.0); Albumin/Globulin Ratio 1.3 (1.1-1.8); Alkaline Phosphatase 80 U/L (38-126); Amylase 57 U/L (30-110); Anion Gap 12.4 mEq/L (5-15); Aspartate Amino Transferase 25 U/L (14-36); Bilirubin,Total 0.4 mg/dl (0.2-1.3); Blood Urea Nitrogen 9 mg/dl (7-17); Calcium 8.7 mg/dl (8.4-10.2); Carbon Dioxide 30 mmol/L (22.0-30.0); Chloride 104 mmol/L (98-107); Creatinine Clearance Estimated 78 mL/min (50-200); Estimated Glomerular Filt Rate 73 ml/min (>60); GFR (African American) 88 ML/MIN (>60); Globulin 3.2 g/dL (1.3-3.2); Glucose 116 mg/dl (74-100); Lipase 45 U/L (23-300); Potassium 3.4 mmoL/L (3.5-5.1); Sodium 143 mmol/L (136-145); Total Protein,Serum 7.4 g/dl (6.3-8.2)
[2022-06-08 22:41] LABS: C-Reactive Protein 8.9 mg/L (0-4)
[2022-06-08 22:53] LABS: Erythrocyte Sedimentation Rate 31 mm/hr (0-30)
[2022-06-08 22:54] LABS: Procalcitonin 0.057 ng/mL (0.0-2.0)
[2022-06-08 22:55] LABS: Free T4 (Free Thyroxine) 1.35 ng/dl (0.78-2.19)
[2022-06-08 23:08] LABS: Thyroid Stimulating Hormone 3.29 uIU/mL (0.465-4.68)
--- NOTE | 2022-06-09 00:30 | PC.NURSE ---
paged dr steven @ this time
--- NOTE | 2022-06-09 00:32 | PC.NURSE ---
Dr. Sandoval speaking with Dr. Estevez
[2022-06-09 00:44] VITALS: BP 162/89; PULSE 84; RESP 16; TEMP 36.6; O2SAT 98
== END 2022-06-09 00:44 | disposition home or self-care (01) ==
PROVIDERS: Emergency Provider Emergency Medicine; PCP Family Medicine
DX: K57.32 Diverticulitis of large intestine without perforation or abscess without bleeding (principal); I27.20 Pulmonary hypertension, unspecified; E78.5 Hyperlipidemia, unspecified; Z96.661 Presence of right artificial ankle joint; Z96.662 Presence of left artificial ankle joint
CPT/HCPCS: 74177; 80053; 82150; 83690; 84145; 84439; 84443; 85025; 85651; 86140; 96361; 96374; 96375; 99285; J2405; Q9967

== ENCOUNTER 2023-06-23 07:30 | Outpatient (CLI) | payer BC, SELFPAY ==
--- NOTE | 2023-06-23 07:35 | MM_ITS ---
PROCEDURE INFORMATION: Exam: MG Bilateral Screening 3D Mammography Exam date and time: 06/23/2023 7:50 AM Age: 63 years old Clinical indication: Screening examination TECHNIQUE: Imaging protocol: Bilateral Screening tomosynthesis and 2D mammography including computer-aided detection (CAD) when performed. COMPARISON: 1. MG MM DIG SCREENING MAMM BI W/CAD 04/26/2021 3:06 PM 2. MG MM DIG SCREENING MAMM BI W/CAD 04/24/2020 8:28 AM FINDINGS: MAMMOGRAPHY: Breast composition: The breasts are almost entirely fatty. Mass: None. Architectural distortion: None. Calcifications: No suspicious calcifications. Asymmetric density: None. Skin thickening: None. Axillary adenopathy: None. IMPRESSION: No mammographic evidence of malignancy. Annual screening is recommended unless otherwise clinically indicated. ASSESSMENT: BI-RADS Category 1: Negative
--- NOTE | 2023-06-23 08:35 | XR_ITS ---
FINAL REPORT CLINICAL HISTORY: POST MENOPAUSAL FINDINGS: Using L1-4, the bone mineral density of the spine is 0.866 g/cm2, corresponding to T-score of -1.6 which is within the low bone density range. Using the left hip, the bone mineral density of the femoral neck is 0.707 g/cm2, corresponding to a T-score of -1.3 which is within the low bone density range. Using the right hip: The bone mineral density of the femoral neck is 0.715 g/cm2, corresponding to a T-score of -1.2 which is within the low bone density range. The FRAX 10 year fracture risk is 13% for a hip fracture and 1.7% for a major osteoporotic fracture. IMPRESSION: Low bone mineral density of the lumbar spine and hips. NOTE: T-score: Standard deviation compared with peak bone mass of young adult mean. *Following the recommendations of the International Society of Bone densitometry, classification of hip BMD is based on the lower of two T-scores; total hip or femoral neck. Reviewed, Interpreted and Dictated by Kelvin Andrade III, MD Transcribed by Annmarie Mccurdy Authenticated and [facility]
== END 2023-06-23 23:59 ==
LOC: RAD 07:30
PROVIDERS: PCP Family Medicine; Visit Provider Physician Assistant
DX: Z12.31 Encounter for screening mammogram for malignant neoplasm of breast (principal); Z78.0 Asymptomatic menopausal state
CPT/HCPCS: 77063; 77067; 77080

== ENCOUNTER 2025-03-07 13:38 | Outpatient (CLI) | payer BC, SELFPAY ==
--- NOTE | 2025-03-07 13:45 | MM_ITS ---
PROCEDURE INFORMATION: Exam: MG Bilateral Screening 3D Mammography Exam date and time: 03/07/2025 1:46 PM Age: 64 years old Clinical indication: Screening exam TECHNIQUE: Imaging protocol: Bilateral Screening tomosynthesis and 2D mammography including computer-aided detection (CAD) when performed. COMPARISON: 1. MG MM DIG SCREENING MAMM BI W/CAD 06/23/2023 7:50 AM 2. MG MM DIG SCREENING MAMM BI W/CAD 04/26/2021 3:06 PM FINDINGS: MAMMOGRAPHY: Breast composition: The breasts are almost entirely fatty. Mass: No suspicious masses. Architectural distortion: None. Calcifications: No suspicious calcifications. Asymmetric density: None. Skin thickening: None. Axillary adenopathy: None. IMPRESSION: No mammographic evidence of malignancy. Annual screening is recommended unless otherwise clinically indicated. ASSESSMENT: BI-RADS Category 1: Negative.
== END 2025-03-07 23:59 | disposition home or self-care (01) ==
LOC: RAD 13:39
PROVIDERS: PCP Family Medicine; Visit Provider Nurse Practitioner Obstetrics & Gynecology
DX: Z12.31 Encounter for screening mammogram for malignant neoplasm of breast (principal)
CPT/HCPCS: 77063; 77067